=== PATIENT | female | born 1940 | race Caucasian/White ===

== ENCOUNTER → 2018-03-09 09:39 | Outpatient (CLI) | payer MEDICARE, BC, SELFPAY ==
[2018-03-09 10:55] LABS: Add Manual Diff / Slide Review NO; Basophils Percent Auto 0.6 % (0-2); Eosinophils Percent Auto 1.2 % (2-4); Hemoglobin 13.9 g/dL (12.0-16.0); Lymphocytes Percent Auto 11.9 % (25-40); Mean Corpuscular HGB Conc 33.9 % (30-36); Mean Corpuscular Hemoglobin 31.1 PG (26-34); Mean Corpuscular Volume 91.9 fL (80-100); Monocytes Percent Auto 9.8 % (3-14); Neutrophils Absolute Auto 8500 /uL (3000-5900); Neutrophils Percent Auto 76.5 % (50-75); Platelet Count 271 X10^3/uL (150-400); Red Blood Cell Count 4.46 X10^6/uL (4.0-5.2); Red Cell Distribution Width 14.1 % (11.6-14.8); White Blood Cell Count 11.1 X10^3/uL (4.5-11.0)
[2018-03-09 11:21] LABS: HEMOLYSIS < 15 (0-50)
[2018-03-09 11:29] LABS: Alanine Aminotransferase 29 IU/L (9-52); Albumin 3.7 g/dL (3.5-5.0); Albumin Globulin Ratio 1.2 (1.0-2.8); Alkaline Phosphatase 90 U/L (38-126); Aspartate Aminotransferase 32 IU/L (14-36); Bilirubin Total 1.1 mg/dL (0.2-1.3); Blood Urea Nitrogen 15 mg/dL (7-17); Carbon Dioxide 29 mmol/L (22-32); Chloride 98 mmol/L (98-107); Cholesterol 171 mg/dL (140-199); Estimated Glomerular Filt Rate > 60.0 mL/min (>60); Glucose 94 mg/dL (80-110); HDL Cholesterol 88 mg/dL (40-60); LDL Cholesterol Calculated 68 mg/dL (<100); Potassium 3.7 mmol/L (3.4-5.1); Sodium 137 mmol/L (137-145); Total Protein 6.7 g/dL (6.3-8.2); Triglycerides 74 mg/dL (35-150)
[2018-03-09 12:15] LABS: Vitamin B12 279 pg/mL (239-931)
[2018-03-09 15:47] LABS: Creatinine Urine Random 90.6 mg/dL
[2018-03-09 15:50] LABS: Microalbumi Creatinin Ratio Ur 16.5 ug/mg CR (<30); Microalbumin Urine Random 1.5 mg/dL (0-1.6)
== END ==
PROVIDERS: PCP Family Medicine; Visit Provider Family Medicine
DX: R19.7 Diarrhea, unspecified (principal); I10 Essential (primary) hypertension; R41.3 Other amnesia
CPT/HCPCS: 36415; 80053; 80061; 82043; 82570; 82607; 84443; 85025

== ENCOUNTER 2018-03-14 17:45 | Emergency (ER) | payer MEDICARE, SELFPAY ==
[2018-03-14 17:35] VITALS: BP 118/56; PULSE 86; RESP 17; TEMP 36.5; O2SAT 96
[2018-03-14 18:00] VITALS: BP 105/53; PULSE 73; RESP 15; O2SAT 94
--- NOTE | 2018-03-14 18:00 | DI.CT.S_ITS ---
PROCEDURE: CT HEAD/BRAIN WO CON INDICATIONS: found down TECHNIQUE: Noncontrast 4.5 mm thick angled axial sections acquired from the foramen magnum to the vertex, with coronal and sagittal reformats. For radiation dose reduction, the following was used: automated exposure control, adjustment of mA and/or kV according to patient size. COMPARISON: None. FINDINGS: Image quality: Excellent. CSF spaces: Basal cisterns are patent. No extra-axial fluid collections. The ventricles are symmetric in size and shape. Brain: No intracranial bleeds or masses. There is cerebral volume loss for age, with resultant ventricular and sulcal prominence. There are periventricular and deep white matter chronic small vessel ischemic changes. There is intracranial internal carotid artery atherosclerosis. Skull and face: Calvarium and visualized facial bones appear intact, without suspicious lesions. Sinuses: Visualized sinuses and mastoids are clear. IMPRESSION: No trauma found. Dictated by: Papa Doll M.D. on 03/14/2018 at 19:07 Approved by: Papa Doll M.D. on 03/14/2018 at 19:07
--- NOTE | 2018-03-14 18:00 | DI.CT.S_ITS ---
PROCEDURE: CT CERVICAL SPINE WO CON INDICATIONS: found down TECHNIQUE: Noncontrast 3 mm thick sections acquired from the skull base to the T4 level. Sagittal and coronal reformats were then constructed. For radiation dose reduction, the following was used: automated exposure control, adjustment of mA and/or kV according to patient size. COMPARISON: None. FINDINGS: Image quality: Excellent. Bones: No fractures or dislocations. Visualized superior ribs are intact. Soft tissues: Prevertebral soft tissues are normal in thickness. No paravertebral hematomas. No apical pneumothoraces. IMPRESSION: Moderately severe degenerative disc disease along the lower thirds of the cervical spine but no osseous trauma or traumatic subluxation is found. Dictated by: Papa Doll M.D. on 03/14/2018 at 19:06 Approved by: Papa Doll M.D. on 03/14/2018 at 19:07
[2018-03-14 18:10] LABS: Add Manual Diff / Slide Review NO; Eosinophils Percent Auto 6.1 % (2-4); Hematocrit 39.1 % (36-46); Hemoglobin 13.1 g/dL (12.0-16.0); Lymphocytes Percent Auto 30.7 % (25-40); Mean Corpuscular HGB Conc 33.5 % (30-36); Mean Corpuscular Hemoglobin 31.4 PG (26-34); Mean Corpuscular Volume 93.8 fL (80-100); Monocytes Percent Auto 11.2 % (3-14); Neutrophils Absolute Auto 5100 /uL (3000-5900); Platelet Count 207 X10^3/uL (150-400); Prothrombin Time 11.4 SECONDS (10.1-12.7); Red Blood Cell Count 4.17 X10^6/uL (4.0-5.2); Red Cell Distribution Width 14.4 % (11.6-14.8)
[2018-03-14 18:13] LABS: PTT Partial Thromboplastin Tim 29 SECONDS (26.4-36.2)
[2018-03-14 18:14] LABS: Alanine Aminotransferase 27 IU/L (9-52); Albumin 3.5 g/dL (3.5-5.0); Albumin Globulin Ratio 1.2 (1.0-2.8); Alkaline Phosphatase 69 U/L (38-126); Aspartate Aminotransferase 32 IU/L (14-36); Bilirubin Total 0.3 mg/dL (0.2-1.3); Blood Urea Nitrogen 13 mg/dL (7-17); Calcium 8.7 mg/dL (8.4-10.2); Carbon Dioxide 33 mmol/L (22-32); Chloride 104 mmol/L (98-107); Estimated Glomerular Filt Rate > 60.0 mL/min (>60); Ethanol (ETOH) 257 mg/dL; Glucose 102 mg/dL (80-110); HEMOLYSIS 27 (0-50); Sodium 144 mmol/L (137-145); Total Protein 6.5 g/dL (6.3-8.2)
[2018-03-14 18:33] LABS: Lactate (Lactic Acid) 1.1 mmol/L (0.7-2.1)
--- NOTE | 2018-03-14 18:36 | ED.AMS ---
HPI - Altered Mental Status General Chief Complaint: Altered Mental Status Stated Complaint: prolapsed bladder, ? UTI, found on ground FAST neg Time Seen by Provider: 03/14/18 17:47 Source: patient, family and EMS Mode of arrival: EMS Limitations: no limitations History of Present Illness HPI narrative: Patient presented to the emergency department by EMS after being found down on her bedroom floor. Per EMS, she ?smelled of UTI and was noted to have a possible ?prolapsed bladder. Her grandson found her on the bedroom floor. He states he lost saw her about an hour ago. EMS also stated she smelled of alcohol and found alcohol in her bed. Grandson states she has been drinking approximately at least a 5th a day of hard alcohol for the past week. Patient denies any alcohol use. She denies any headache, chest pain, shortness of breath, syncope and does not know the mechanism of her being found on the ground. Patient states she ?is ready to go home Related Data Home Medications Medication Instructions Recorded Confirmed acetaminophen [Tylenol Extra 1,000 mg PO BID #0 07/07/17 03/09/18 Strength] digoxin [Lanoxin] 0.25 mg PO QDAY #0 07/07/17 03/09/18 diltiazem HCl [Cardizem LA] 240 mg PO QDAY #0 07/20/17 03/09/18 docusate sodium [Colace] 100 mg PO QDAY #0 07/20/17 03/09/18 zolpidem [Ambien CR] 6.25 mg PO HS #0 07/20/17 03/09/18 rosuvastatin 20 mg tablet 20 mg PO DAILY 12/24/17 03/09/18 Previous Rx's Medication Instructions Recorded aspirin 81 mg PO BID #60 tab 07/21/17 hydrocodone-acetaminophen [[place]] 1 tab PO Q4HP PRN #60 tab 07/22/17 nitrofurantoin monohyd/m-cryst 100 mg PO BID #20 cap 03/14/18 [Macrobid] Allergies Allergy/AdvReac Type Severity Reaction Status Date / Time Sulfa (Sulfonamide Allergy Severe NAUSEA, Unverified 03/09/18 09:00 Antibiotics) VAGINAL [SULFA (SULFONAMIDE ITCHING ANTIBIOTICS)] oxycodone [OXYCODONE] Allergy Unknown Unverified 03/09/18 09:00 codeine [CODEINE] AdvReac Intermediate NAUSEA Unverified 03/09/18 09:00 Review of Systems Review of Systems GENERAL: See HPI HEENT: Denies sinus pain, ear pain, sore throat, difficulty swallowing, dizziness. RESPIRATORY: Denies dyspnea, cough, wheezing, hemoptysis, sputum. CARDIOVASCULAR: Denies chest pain, palpitations, orthopnea, edema, GASTROINTESTINAL: Denies nausea, vomiting, abdominal pain, diarrhea, constipation, melena. : Denies dysuria, frequency, incontinence, hematuria, urinary retention. MUSCULOSKELETAL: denies weakness, joint pain, or bony pain SKIN: Denies rash, skin lesions, or other NEUROLOGIC: See HPI PSYCHIATRIC: No concerning psychosocial issues. 12 point review of systems is negative except for those stated above Exam Narrative Exam Narrative: GENERAL: Elderly female no apparent distress. Strong urine odor. HEAD: Atraumatic. Normocephalic. No temporal or scalp tenderness. EYES: Pupils equal round and reactive. Extraocular motions intact. No scleral icterus. No injection or drainage. ENT: Nose without bleeding, purulent drainage or septal hematoma. Throat without erythema, tonsillar hypertrophy or exudate. Uvula midline. Airway patent. NECK: Trachea midline. No JVD or lymphadenopathy. Supple, nontender, no meningeal signs. No pain to C-spine palpation. CARDIOVASCULAR: Regular rate and rhythm without murmurs, gallops, or rubs. RESPIRATORY: Clear to auscultation. Breath sounds equal bilaterally. No wheezes, rales, or rhonchi. GASTROINTESTINAL: Abdomen soft, non-tender, nondistended. No hepato-splenomegaly, or palpable masses. No guarding. Active bowel sounds all quadrants. No pulsatile mass. EXTREMITIES: No clubbing, cyanosis, or edema. No joint tenderness, effusion, or edema noted. BACK: Nontender without deformity or crepitance. No flank tenderness. No CVA tenderness bilaterally. No pain to spinal palpation. NEURO: A alert. Oriented x1. States it is 1968 initially. Using all extremities equally. Steady on feet. SKIN: No rash or erythema. Initial Vital Signs Initial Vital Signs: Vital Signs Temperature 97.7 F 03/14/18 17:35 Pulse Rate 86 03/14/18 17:35 Respiratory Rate 17 03/14/18 17:35 Blood Pressure 118/56 L 09/09/18 17:35 Pulse Oximetry 96 03/14/18 17:35 Scores Nexus Score for C-Spine Focal Neurologic deficit present: No Midline spinal tenderness present: No Altered level of conciousness present: Yes Intoxication present: Yes Distracting Injury Present: No Nexus Criteria for C-spine: 2 Course Course Narrative: A checked on the patient several times throughout her stay in the emergency department. Orders Ordered: ED Orders 03/14/18 17:30 Complete Blood Count AUTO DIFF Stat Comprehensive Metabolic Panel Stat Ethanol (ETOH) Stat Partial Thromboplastin Time Stat Prothrombin Time INR Stat 03/14/18 18:00 CT cervical spine wo con Stat CT head/brain wo con Stat 03/14/18 18:15 Lactate (Lactic Acid) Stat 03/14/18 18:16 EKG-12 Lead Stat 03/14/18 18:51 Urinalysis and Microscopic Stat Urine Culture Stat Urine Drug Screen, Rapid Stat Discontinued Medications Sodium Chloride (Normal Saline 0.9%) 1,000 mls @ 150 mls/hr IV CONT VIVIANA Last Infusion: 03/14/18 19:08 Dose: 1,000 mls/hr Admin: 03/14/18 18:42 Dose: 150 mls/hr Nitrofurantoin Macrocrystals (Macrobid 100 Mg Capsule) 100 mg PO NOW ONE Stop: 03/14/18 19:54 Last Admin: 03/14/18 20:01 Dose: 100 mg Vital Signs - 8 hr 03/14/18 17:35 03/14/18 18:00 Temperature 97.7 F Pulse Rate 86 73 Respiratory Rate 17 15 Blood Pressure 118/56 L Blood Pressure [Left Arm] 105/53 L Pulse Oximetry 96 94 MDM - Altered Mental Status Lab Data Attestation: I reviewed the patient's lab results. Patient was noted to have an elevated alcohol. I discussed that with the patient, who repeatedly stated she was not drinking alcohol today. She states she drank last night. I discussed at length that I would like her to stop drinking as much alcohol, but she declined that she has a problem with alcohol. I repeatedly discussed her high alcohol level with her, and she repeats that I would like her to stop drinking alcohol. I discussed that I believe it is a problem, that it could increase her chance of , but she states that her drinking is not a problem. Patient is ambulating steadily around the emergency department. I also discussed with her grandson that I would like him to stop buying her alcohol. Result diagrams: 03/14/18 17:30 03/14/18 17:30 Lab Results 03/14/18 03/14/18 03/14/18 Range/Units 17:30 17:30 17:30 WBC 10.0 (4.5-11.0) X10^3/uL RBC 4.17 (4.0-5.2) X10^6/uL Hgb 13.1 (12.0-16.0) g/dL Hct 39.1 (36-46) % MCV 93.8 (80-100) fL MCH 31.4 (26-34) PG MCHC 33.5 (30-36) % RDW 14.4 (11.6-14.8) % Plt Count 207 (150-400) X10^3/uL Neut % (Auto) 51.0 (50-75) % Lymph % (Auto) 30.7 (25-40) % Emm[place] % (Auto) 11.2 (3-14) % Eos % (Auto) 6.1 H (2-4) % Baso % (Auto) 1.0 (0-2) % Neut # (Auto) 5100 (7080-6428) /uL PT 11.4 (10.1-12.7) SECONDS INR 1.0 (0.9-1.3) APTT 29 (26.4-36.2) SECONDS Sodium 144 (137-145) mmol/L Potassium 4.0 (3.4-5.1) mmol/L Chloride 104 (98-107) mmol/L Carbon Dioxide 33 H (22-32) mmol/L BUN 13 (7-17) mg/dL Creatinine 0.50 L (0.52-1.04) mg/dL Estimated GFR > 60.0 (>60) mL/min BUN/Creatinine Ratio 26.0 H (6-22) Glucose 102 (80-110) mg/dL Lactate (0.7-2.1) mmol/L Calcium 8.7 (8.4-10.2) mg/dL Total Bilirubin 0.3 (0.2-1.3) mg/dL AST 32 (14-36) IU/L ALT 27 (9-52) IU/L Alkaline Phosphatase 69 (38-126) U/L Total Protein 6.5 (6.3-8.2) g/dL Albumin 3.5 (3.5-5.0) g/dL Globulin 3.0 (1.7-4.1) g/dL Albumin/Globulin Ratio 1.2 (1.0-2.8) Urine Color Urine Appearance Urine pH (4.5-8.0) Ur Specific [place] (1.000-1.035) Urine Protein (Negative) Urine Glucose (UA) (Normal) g/dL Urine Ketones (NEGATIVE) Urine Occult Blood (Negative) Urine Nitrate (Negative) Urine Bilirubin (NEGATIVE) Urine Urobilinogen (0.2) E.U./dL Ur Leukocyte Esterase (NEGATIVE) Urine RBC (0-5/HPF) Urine WBC (0-5/HPF) Urine Bacteria (None) Ur Culture Indicated? Micro UA Comment Urine Opiates Screen (Negative) Ur Oxycodone Screen (Negative) Urine Methadone Screen (Negative) Ur Barbiturates Screen (Negative) U Tricyclic Antidepress (Negative) Ur Phencyclidine Scrn (Negative) Ur Amphetamines Screen (Negative) U Methamphetamines Scrn (Negative) Ur MDMA Scrn (Ecstasy) (Negative) U Benzodiazepines Scrn (Negative) Urine Cocaine Screen (Negative) U Marijuana (THC) Screen (Negative) Ethyl Alcohol 257 mg/dL 03/14/18 03/14/18 03/14/18 Range/Units 18:15 18:51 18:51 WBC (4.5-11.0) X10^3/uL RBC (4.0-5.2) X10^6/uL Hgb (12.0-16.0) g/dL Hct (36-46) % MCV (80-100) fL MCH (26-34) PG MCHC (30-36) % RDW (11.6-14.8) % Plt Count (150-400) X10^3/uL Neut % (Auto) (50-75) % Lymph % (Auto) (25-40) % Emmons % (Auto) (3-14) % Eos % (Auto) (2-4) % Baso % (Auto) (0-2) % Neut # (Auto) (5463-9996) /uL PT (10.1-12.7) SECONDS INR (0.9-1.3) APTT (26.4-36.2) SECONDS Sodium (137-145) mmol/L Potassium (3.4-5.1) mmol/L Chloride (98-107) mmol/L Carbon Dioxide (22-32) mmol/L BUN (7-17) mg/dL Creatinine (0.52-1.04) mg/dL Estimated GFR (>60) mL/min BUN/Creatinine Ratio (6-22) Glucose (80-110) mg/dL Lactate 1.1 (0.7-2.1) mmol/L Calcium (8.4-10.2) mg/dL Total Bilirubin (0.2-1.3) mg/dL AST (14-36) IU/L ALT (9-52) IU/L Alkaline Phosphatase (38-126) U/L Total Protein (6.3-8.2) g/dL Albumin (3.5-5.0) g/dL Globulin (1.7-4.1) g/dL Albumin/Globulin Ratio (1.0-2.8) Urine Color Yellow Urine Appearance Sl cloudy Urine pH 7.0 (4.5-8.0) Ur Specific [place] <=1.005 (1.000-1.035) Urine Protein Negative (Negative) Urine Glucose (UA) Negative (Normal) g/dL Urine Ketones Negative (NEGATIVE) Urine Occult Blood Trace-lysed (Negative) Urine Nitrate Positive H (Negative) Urine Bilirubin Negative (NEGATIVE) Urine Urobilinogen 0.2 (0.2) E.U./dL Ur Leukocyte Esterase 3+ H (NEGATIVE) Urine RBC 1-5/hpf (0-5/HPF) Urine WBC 30-100/hpf H (0-5/HPF) Urine Bacteria Many (>30) H (None) Ur Culture Indicated? Specimen cultured Micro UA Comment Not Reportable Urine Opiates Screen Negative (Negative) Ur Oxycodone Screen Negative (Negative) Urine Methadone Screen Negative (Negative) Ur Barbiturates Screen Negative (Negative) U Tricyclic Antidepress Negative (Negative) Ur Phencyclidine Scrn Negative (Negative) Ur Amphetamines Screen Negative (Negative) U Methamphetamines Scrn Negative (Negative) Ur MDMA Scrn (Ecstasy) Negative (Negative) U Benzodiazepines Scrn Negative (Negative) Urine Cocaine Screen Negative (Negative) U Marijuana (THC) Screen Negative (Negative) Ethyl Alcohol mg/dL Point of Care Testing Glucose POC [address] Spine CT: Radiologist's impression: [address] [address] [address] Scan Report Signed Patient: May Hendrickson MR#: [id number] : 1940 Acct:[id number] Age/Sex: 77 / F Date of Service: 03/14/18 Loc: ED Accession Number: [id number] Procedure: CT cervical spine wo con Ordering Provider: Mari Srinivasan-VIDAL PROCEDURE: CT CERVICAL SPINE WO CON INDICATIONS: found down TECHNIQUE: Noncontrast 3 mm thick sections acquired from the skull base to the T4 level. Sagittal and coronal reformats were then constructed. For radiation dose reduction, the following was used: automated exposure control, adjustment of mA and/or kV according to patient size. COMPARISON: None. FINDINGS: Image quality: Excellent. Bones: No fractures or dislocations. Visualized superior ribs are intact. Soft tissues: Prevertebral soft tissues are normal in thickness. No paravertebral hematomas. No apical pneumothoraces. IMPRESSION: Moderately severe degenerative disc disease along the lower thirds of the cervical spine but no osseous trauma or traumatic subluxation is found. Dictated by: Papa Doll M.D. on 03/14/2018 at 19:06 Approved by: Papa Doll M.D. on 03/14/2018 at 19:07 CT scan - head: Radiologist's impression: [address] [address] [address] Scan Report Signed Patient: May Hendrickson MR#: [id number] : 1940 Acct:[id number] Age/Sex: 77 / F Date of Service: 03/14/18 Loc: ED Accession Number: [id number] Procedure: CT head/brain wo con Ordering Provider: Mari Srinivasan PROCEDURE: CT HEAD/BRAIN WO CON INDICATIONS: found down TECHNIQUE: Noncontrast 4.5 mm thick angled axial sections acquired from the foramen magnum to the vertex, with coronal and sagittal reformats. For radiation dose reduction, the following was used: automated exposure control, adjustment of mA and/or kV according to patient size. COMPARISON: None. FINDINGS: Image quality: Excellent. CSF spaces: Basal cisterns are patent. No extra-axial fluid collections. The ventricles are symmetric in size and shape. Brain: No intracranial bleeds or masses. There is cerebral volume loss for age, with resultant ventricular and sulcal prominence. There are periventricular and deep white matter chronic small vessel ischemic changes. There is intracranial internal carotid artery atherosclerosis. Skull and face: Calvarium and visualized facial bones appear intact, without suspicious lesions. Sinuses: Visualized sinuses and mastoids are clear. IMPRESSION: No trauma found. Dictated by: Papa Doll M.D. on 03/14/2018 at 19:07 Approved by: Papa Doll M.D. on 03/14/2018 at 19:07 ECG Data Attestation: I personally reviewed and interpreted this ECG as follows: Prior ECG tracings: available for review Interpretation: Sinus rhythm. No ectopy noted. No ST-T elevation or depression noted. QRS 83. Consistent with previous EKG frm 2010 which had QRS 82 MDM Narrative Medical decision making narrative: Patient presented by EMS. She was found down in her bedroom. She was noted to have an elevated alcohol level as well as a urinary tract infection. I discussed at length with her her alcohol level, offered her assistance, offered resources for drinking. However the patient declined all resources and help offered. She denied a drinking problem repeatedly to myself and nursing staff. She was cognizant enough to understand discharge instructions, discussed her alcohol level, ambulate in the hallway. She had no questions or concerns regarding her urinary tract diagnosis. I suggested prompt follow-up with primary care. I discussed signs and symptoms of worsening UTI including flank pain fever vomiting or diarrhea. I discussed be evaluated as soon as possible if any of those occur. Otherwise her labs came back within grossly normal limits. She had a negative head CT as well as a negative C-spine CT. I discussed follow-up with primary care as well as come back to the emergency department if needed. Discharge Plan Departure Patient Disposition: Home Clinical Impression: Alcoholic intoxication, Urinary tract infection Discharge Date/Time: 03/14/18 20:30 Interventions: ED Discharge Assessment Last Done: 03/14/18 20:28 Instructions: DI for Urinary Tract Infection (UTI), DI for Alcohol Abuse, DI for Alcohol Poisoning Activity Restrictions/Additional Instructions: I am starting you on an antibiotic for urinary tract infection. Please take this antibiotic twice a day for 10 days. Follow up with primary care provider. Monitor for fever, flank pain, vomiting or diarrhea as these are signs your infection could be getting worse. Your alcohol today was almost four times the legal limit. I would like you to stop drinking as much alcohol. We are able to offer you help for drinking alcohol. Please come back or go to her primary care provider if you would like to take advantage of the help we can give you. Prescriptions: New nitrofurantoin monohyd/m-cryst [Macrobid] 100 mg capsule 100 mg PO BID Qty: 20 RF: 0 No Action acetaminophen [Tylenol Extra Strength] 500 MG tablet 1,000 mg PO BID Qty: 0 RF: 0 digoxin [Lanoxin] 250 MCG tablet 0.25 mg PO QDAY Qty: 0 RF: 0 diltiazem HCl [Cardizem LA] 240 MG tablet extended release 24 hr 240 mg PO QDAY Qty: 0 RF: 0 docusate sodium [Colace] 100 MG capsule 100 mg PO QDAY Qty: 0 RF: 0 zolpidem [Ambien CR] 6.25 MG tablet,ext release multiphase 6.25 mg PO HS Qty: 0 RF: 0 aspirin 81 MG tablet,delayed release (DR/EC) 81 mg PO BID Qty: 60 RF: 0 hydrocodone-acetaminophen [[place]] 5 MG/325 MG tablet 1 tab PO Q4HP PRNQty: 60 RF: 0 rosuvastatin 20 mg tablet 20 mg PO DAILY RF: 0 Referrals: Fartun Prabhakar MD [Primary Care Provider] -
[2018-03-14] MEDS: SODIUM CHLORIDE 0.9% 1,000 ML 150 ML IV (18:42)
[2018-03-14 19:00] LABS: Appearance Urine UA SL CLOUDY; Bilirubin Urine UA NEGATIVE (NEGATIVE); Color Urine UA YELLOW; Glucose Urine UA NEGATIVE (Normal); Ketones Urine UA NEGATIVE (NEGATIVE); Leukocyte Esterase Urine UA 3+ (NEGATIVE); Nitrite Urine UA POSITIVE (Negative); Occult Blood Urine UA TRACE-LYSED (Negative); Protein Urine UA NEGATIVE (Negative); Specific Gravity Urine UA <=1.005 (1.000-1.035); Urobilinogen Urine UA 0.2 E.U./dL (0.2)
--- NOTE | 2018-03-14 19:13 | ED_ITS ---
HPI - Altered Mental Status General Chief Complaint: Altered Mental Status Stated Complaint: prolapsed bladder, ? UTI, found on ground FAST neg Time Seen by Provider: 03/14/18 17:47 Source: patient, family and EMS Mode of arrival: EMS Limitations: no limitations History of Present Illness HPI narrative: Patient presented to the emergency department by EMS after being found down on her bedroom floor. Per EMS, she ?smelled of UTI and was noted to have a possible ?prolapsed bladder. Her grandson found her on the bedroom floor. He states he lost saw her about an hour ago. EMS also stated she smelled of alcohol and found alcohol in her bed. Grandson states she has been drinking approximately at least a 5th a day of hard alcohol for the past week. Patient denies any alcohol use. She denies any headache, chest pain, shortness of breath, syncope and does not know the mechanism of her being found on the ground. Patient states she ?is ready to go home Related Data Home Medications Medication Instructions Recorded Confirmed acetaminophen [Tylenol Extra 1,000 mg PO BID #0 07/07/17 03/09/18 Strength] digoxin [Lanoxin] 0.25 mg PO QDAY #0 07/07/17 03/09/18 diltiazem HCl [Cardizem LA] 240 mg PO QDAY #0 07/20/17 03/09/18 docusate sodium [Colace] 100 mg PO QDAY #0 07/20/17 03/09/18 zolpidem [Ambien CR] 6.25 mg PO HS #0 07/20/17 03/09/18 rosuvastatin 20 mg tablet 20 mg PO DAILY 12/24/17 03/09/18 Previous Rx's Medication Instructions Recorded aspirin 81 mg PO BID #60 tab 07/21/17 hydrocodone-acetaminophen [Hilliards] 1 tab PO Q4HP PRN #60 tab 07/22/17 nitrofurantoin monohyd/m-cryst 100 mg PO BID #20 cap 03/14/18 [Macrobid] Allergies Allergy/AdvReac Type Severity Reaction Status Date / Time Sulfa (Sulfonamide Allergy Severe NAUSEA, Unverified 03/09/18 09:00 Antibiotics) VAGINAL [SULFA (SULFONAMIDE ITCHING ANTIBIOTICS)] oxycodone [OXYCODONE] Allergy Unknown Unverified 03/09/18 09:00 codeine [CODEINE] AdvReac Intermediate NAUSEA Unverified 03/09/18 09:00 Review of Systems Review of Systems GENERAL: See HPI HEENT: Denies sinus pain, ear pain, sore throat, difficulty swallowing, dizziness. RESPIRATORY: Denies dyspnea, cough, wheezing, hemoptysis, sputum. CARDIOVASCULAR: Denies chest pain, palpitations, orthopnea, edema, GASTROINTESTINAL: Denies nausea, vomiting, abdominal pain, diarrhea, constipation, melena. : Denies dysuria, frequency, incontinence, hematuria, urinary retention. MUSCULOSKELETAL: denies weakness, joint pain, or bony pain SKIN: Denies rash, skin lesions, or other NEUROLOGIC: See HPI PSYCHIATRIC: No concerning psychosocial issues. 12 point review of systems is negative except for those stated above Exam Narrative Exam Narrative: GENERAL: Elderly female no apparent distress. Strong urine odor. HEAD: Atraumatic. Normocephalic. No temporal or scalp tenderness. EYES: Pupils equal round and reactive. Extraocular motions intact. No scleral icterus. No injection or drainage. ENT: Nose without bleeding, purulent drainage or septal hematoma. Throat without erythema, tonsillar hypertrophy or exudate. Uvula midline. Airway patent. NECK: Trachea midline. No JVD or lymphadenopathy. Supple, nontender, no meningeal signs. No pain to C-spine palpation. CARDIOVASCULAR: Regular rate and rhythm without murmurs, gallops, or rubs. RESPIRATORY: Clear to auscultation. Breath sounds equal bilaterally. No wheezes , rales, or rhonchi. GASTROINTESTINAL: Abdomen soft, non-tender, nondistended. No hepato-splenomegaly , or palpable masses. No guarding. Active bowel sounds all quadrants. No pulsatile mass. EXTREMITIES: No clubbing, cyanosis, or edema. No joint tenderness, effusion, or edema noted. BACK: Nontender without deformity or crepitance. No flank tenderness. No CVA tenderness bilaterally. No pain to spinal palpation. NEURO: A alert. Oriented x1. States it is 1968 initially. Using all extremities equally. Steady on feet. SKIN: No rash or erythema. Initial Vital Signs Initial Vital Signs: Vital Signs Temperature 97.7 F 03/14/18 17:35 Pulse Rate 86 03/14/18 17:35 Respiratory Rate 17 03/14/18 17:35 Blood Pressure 118/56 L 09/09/18 17:35 Pulse Oximetry 96 03/14/18 17:35 Scores Nexus Score for C-Spine Focal Neurologic deficit present: No Midline spinal tenderness present: No Altered level of conciousness present: Yes Intoxication present: Yes Distracting Injury Present: No Nexus Criteria for C-spine: 2 Course Course Narrative: A checked on the patient several times throughout her stay in the emergency department. Orders Ordered: ED Orders 03/14/18 17:30 Complete Blood Count AUTO DIFF Stat Comprehensive Metabolic Panel Stat Ethanol (ETOH) Stat Partial Thromboplastin Time Stat Prothrombin Time INR Stat 03/14/18 18:00 CT cervical spine wo con Stat CT head/brain wo con Stat 03/14/18 18:15 Lactate (Lactic Acid) Stat 03/14/18 18:16 EKG-12 Lead Stat 03/14/18 18:51 Urinalysis and Microscopic Stat Urine Culture Stat Urine Drug Screen, Rapid Stat Discontinued Medications Sodium Chloride (Normal Saline 0.9%) 1,000 mls @ 150 mls/hr IV CONT VIVIANA Last Infusion: 03/14/18 19:08 Dose: 1,000 mls/hr Admin: 03/14/18 18:42 Dose: 150 mls/hr Nitrofurantoin Macrocrystals (Macrobid 100 Mg Capsule) 100 mg PO NOW ONE Stop: 03/14/18 19:54 Last Admin: 03/14/18 20:01 Dose: 100 mg Vital Signs - 8 hr 03/14/18 17:35 03/14/18 18:00 Temperature 97.7 F Pulse Rate 86 73 Respiratory Rate 17 15 Blood Pressure 118/56 L Blood Pressure [Left Arm] 105/53 L Pulse Oximetry 96 94 MDM - Altered Mental Status Lab Data Attestation: I reviewed the patient's lab results. Patient was noted to have an elevated alcohol. I discussed that with the patient, who repeatedly stated she was not drinking alcohol today. She states she drank last night. I discussed at length that I would like her to stop drinking as much alcohol, but she declined that she has a problem with alcohol. I repeatedly discussed her high alcohol level with her, and she repeats that I would like her to stop drinking alcohol. I discussed that I believe it is a problem, that it could increase her chance of , but she states that her drinking is not a problem. Patient is ambulating steadily around the emergency department. I also discussed with her grandson that I would like him to stop buying her alcohol. Result diagrams: 03/14/18 17:30 03/14/18 17:30 Lab Results 03/14/18 03/14/18 03/14/18 Range/Units 17:30 17:30 17:30 WBC 10.0 (4.5-11.0) X10^3/uL RBC 4.17 (4.0-5.2) X10^6/uL Hgb 13.1 (12.0-16.0) g/dL Hct 39.1 (36-46) % MCV 93.8 (80-100) fL MCH 31.4 (26-34) PG MCHC 33.5 (30-36) % RDW 14.4 (11.6-14.8) % Plt Count 207 (150-400) X10^3/uL Neut % (Auto) 51.0 (50-75) % Lymph % (Auto) 30.7 (25-40) % O'Brien % (Auto) 11.2 (3-14) % Eos % (Auto) 6.1 H (2-4) % Baso % (Auto) 1.0 (0-2) % Neut # (Auto) 5100 (9485-7864) /uL PT 11.4 (10.1-12.7) SECONDS INR 1.0 (0.9-1.3) APTT 29 (26.4-36.2) SECONDS Sodium 144 (137-145) mmol/L Potassium 4.0 (3.4-5.1) mmol/L Chloride 104 (98-107) mmol/L Carbon Dioxide 33 H (22-32) mmol/L BUN 13 (7-17) mg/dL Creatinine 0.50 L (0.52-1.04) mg/dL Estimated GFR > 60.0 (>60) mL/min BUN/Creatinine Ratio 26.0 H (6-22) Glucose 102 (80-110) mg/dL Lactate (0.7-2.1) mmol/L Calcium 8.7 (8.4-10.2) mg/dL Total Bilirubin 0.3 (0.2-1.3) mg/dL AST 32 (14-36) IU/L ALT 27 (9-52) IU/L Alkaline Phosphatase 69 (38-126) U/L Total Protein 6.5 (6.3-8.2) g/dL Albumin 3.5 (3.5-5.0) g/dL Globulin 3.0 (1.7-4.1) g/dL Albumin/Globulin Ratio 1.2 (1.0-2.8) Urine Color Urine Appearance Urine pH (4.5-8.0) Ur Specific Ray (1.000-1.035) Urine Protein (Negative) Urine Glucose (UA) (Normal) g/dL Urine Ketones (NEGATIVE) Urine Occult Blood (Negative) Urine Nitrate (Negative) Urine Bilirubin (NEGATIVE) Urine Urobilinogen (0.2) E.U./dL Ur Leukocyte Esterase (NEGATIVE) Urine RBC (0-5/HPF) Urine WBC (0-5/HPF) Urine Bacteria (None) Ur Culture Indicated? Micro UA Comment Urine Opiates Screen (Negative) Ur Oxycodone Screen (Negative) Urine Methadone Screen (Negative) Ur Barbiturates Screen (Negative) U Tricyclic Antidepress (Negative) Ur Phencyclidine Scrn (Negative) Ur Amphetamines Screen (Negative) U Methamphetamines Scrn (Negative) Ur MDMA Scrn (Ecstasy) (Negative) U Benzodiazepines Scrn (Negative) Urine Cocaine Screen (Negative) U Marijuana (THC) Screen (Negative) Ethyl Alcohol 257 mg/dL 03/14/18 03/14/18 03/14/18 Range/Units 18:15 18:51 18:51 WBC (4.5-11.0) X10^3/uL RBC (4.0-5.2) X10^6/uL Hgb (12.0-16.0) g/dL Hct (36-46) % MCV (80-100) fL MCH (26-34) PG MCHC (30-36) % RDW (11.6-14.8) % Plt Count (150-400) X10^3/uL Neut % (Auto) (50-75) % Lymph % (Auto) (25-40) % O'Brien % (Auto) (3-14) % Eos % (Auto) (2-4) % Baso % (Auto) (0-2) % Neut # (Auto) (7083-2450) /uL PT (10.1-12.7) SECONDS INR (0.9-1.3) APTT (26.4-36.2) SECONDS Sodium (137-145) mmol/L Potassium (3.4-5.1) mmol/L Chloride (98-107) mmol/L Carbon Dioxide (22-32) mmol/L BUN (7-17) mg/dL Creatinine (0.52-1.04) mg/dL Estimated GFR (>60) mL/min BUN/Creatinine Ratio (6-22) Glucose (80-110) mg/dL Lactate 1.1 (0.7-2.1) mmol/L Calcium (8.4-10.2) mg/dL Total Bilirubin (0.2-1.3) mg/dL AST (14-36) IU/L ALT (9-52) IU/L Alkaline Phosphatase (38-126) U/L Total Protein (6.3-8.2) g/dL Albumin (3.5-5.0) g/dL Globulin (1.7-4.1) g/dL Albumin/Globulin Ratio (1.0-2.8) Urine Color Yellow Urine Appearance Sl cloudy Urine pH 7.0 (4.5-8.0) Ur Specific Ray <=1.005 (1.000-1.035) Urine Protein Negative (Negative) Urine Glucose (UA) Negative (Normal) g/dL Urine Ketones Negative (NEGATIVE) Urine Occult Blood Trace-lysed (Negative) Urine Nitrate Positive H (Negative) Urine Bilirubin Negative (NEGATIVE) Urine Urobilinogen 0.2 (0.2) E.U./dL Ur Leukocyte Esterase 3+ H (NEGATIVE) Urine RBC 1-5/hpf (0-5/HPF) Urine WBC 30-100/hpf H (0-5/HPF) Urine Bacteria Many (>30) H (None) Ur Culture Indicated? Specimen cultured Micro UA Comment Not Reportable Urine Opiates Screen Negative (Negative) Ur Oxycodone Screen Negative (Negative) Urine Methadone Screen Negative (Negative) Ur Barbiturates Screen Negative (Negative) U Tricyclic Antidepress Negative (Negative) Ur Phencyclidine Scrn Negative (Negative) Ur Amphetamines Screen Negative (Negative) U Methamphetamines Scrn Negative (Negative) Ur MDMA Scrn (Ecstasy) Negative (Negative) U Benzodiazepines Scrn Negative (Negative) Urine Cocaine Screen Negative (Negative) U Marijuana (THC) Screen Negative (Negative) Ethyl Alcohol mg/dL Point of Care Testing Glucose POC [address] Spine CT: Radiologist's impression: [address] [address] [address] Scan Report Signed Patient: May Hendrickson MR#: [id number] : 1940 Acct:[id number] Age/Sex: 77 / F Date of Service: 03/14/18 Loc: ED Accession Number: [id number] Procedure: CT cervical spine wo con Ordering Provider: Mari Srinivasan-VIDAL PROCEDURE: CT CERVICAL SPINE WO CON INDICATIONS: found down TECHNIQUE: Noncontrast 3 mm thick sections acquired from the skull base to the T4 level. Sagittal and coronal reformats were then constructed. For radiation dose reduction, the following was used: automated exposure control, adjustment of mA and/or kV according to patient size. COMPARISON: None. FINDINGS: Image quality: Excellent. Bones: No fractures or dislocations. Visualized superior ribs are intact. Soft tissues: Prevertebral soft tissues are normal in thickness. No paravertebral hematomas. No apical pneumothoraces. IMPRESSION: Moderately severe degenerative disc disease along the lower thirds of the cervical spine but no osseous trauma or traumatic subluxation is found. Dictated by: Papa Doll M.D. on 03/14/2018 at 19:06 Approved by: Papa Doll M.D. on 03/14/2018 at 19:07 CT scan - head: Radiologist's impression: [address] [address] [address] Scan Report Signed Patient: May Hendrickson MR#: [id number] : 1940 Acct:[id number] Age/Sex: 77 / F Date of Service: 03/14/18 Loc: ED Accession Number: [id number] Procedure: CT head/brain wo con Ordering Provider: Mari Srinivasan PROCEDURE: CT HEAD/BRAIN WO CON INDICATIONS: found down TECHNIQUE: Noncontrast 4.5 mm thick angled axial sections acquired from the foramen magnum to the vertex, with coronal and sagittal reformats. For radiation dose reduction, the following was used: automated exposure control, adjustment of mA and/or kV according to patient size. COMPARISON: None. FINDINGS: Image quality: Excellent. CSF spaces: Basal cisterns are patent. No extra-axial fluid collections. The ventricles are symmetric in size and shape. Brain: No intracranial bleeds or masses. There is cerebral volume loss for age , with resultant ventricular and sulcal prominence. There are periventricular and deep white matter chronic small vessel ischemic changes. There is intracranial internal carotid artery atherosclerosis. Skull and face: Calvarium and visualized facial bones appear intact, without suspicious lesions. Sinuses: Visualized sinuses and mastoids are clear. IMPRESSION: No trauma found. Dictated by: Papa Doll M.D. on 03/14/2018 at 19:07 Approved by: Papa Doll M.D. on 03/14/2018 at 19:07 ECG Data Attestation: I personally reviewed and interpreted this ECG as follows: Prior ECG tracings: available for review Interpretation: Sinus rhythm. No ectopy noted. No ST-T elevation or depression noted. QRS 83. Consistent with previous EKG frm 2010 which had QRS 82 MDM Narrative Medical decision making narrative: Patient presented by EMS. She was found down in her bedroom. She was noted to have an elevated alcohol level as well as a urinary tract infection. I discussed at length with her her alcohol level , offered her assistance, offered resources for drinking. However the patient declined all resources and help offered. She denied a drinking problem repeatedly to myself and nursing staff. She was cognizant enough to understand discharge instructions, discussed her alcohol level, ambulate in the hallway. She had no questions or concerns regarding her urinary tract diagnosis. I suggested prompt follow-up with primary care. I discussed signs and symptoms of worsening UTI including flank pain fever vomiting or diarrhea. I discussed be evaluated as soon as possible if any of those occur. Otherwise her labs came back within grossly normal limits. She had a negative head CT as well as a negative C-spine CT. I discussed follow-up with primary care as well as come back to the emergency department if needed. Discharge Plan Departure Patient Disposition: Home Clinical Impression: Alcoholic intoxication, Urinary tract infection Discharge Date/Time: 03/14/18 20:30 Interventions: ED Discharge Assessment Last Done: 03/14/18 20:28 Instructions: DI for Urinary Tract Infection (UTI), DI for Alcohol Abuse, DI for Alcohol Poisoning Activity Restrictions/Additional Instructions: I am starting you on an antibiotic for urinary tract infection. Please take this antibiotic twice a day for 10 days. Follow up with primary care provider. Monitor for fever, flank pain, vomiting or diarrhea as these are signs your infection could be getting worse. Your alcohol today was almost four times the legal limit. I would like you to stop drinking as much alcohol. We are able to offer you help for drinking alcohol. Please come back or go to her primary care provider if you would like to take advantage of the help we can give you. Prescriptions: New nitrofurantoin monohyd/m-cryst [Macrobid] 100 mg capsule 100 mg PO BID Qty: 20 RF: 0 No Action acetaminophen [Tylenol Extra Strength] 500 MG tablet 1,000 mg PO BID Qty: 0 RF: 0 digoxin [Lanoxin] 250 MCG tablet 0.25 mg PO QDAY Qty: 0 RF: 0 diltiazem HCl [Cardizem LA] 240 MG tablet extended release 24 hr 240 mg PO QDAY Qty: 0 RF: 0 docusate sodium [Colace] 100 MG capsule 100 mg PO QDAY Qty: 0 RF: 0 zolpidem [Ambien CR] 6.25 MG tablet,ext release multiphase 6.25 mg PO HS Qty: 0 RF: 0 aspirin 81 MG tablet,delayed release (DR/EC) 81 mg PO BID Qty: 60 RF: 0 hydrocodone-acetaminophen [Hilliards] 5 MG/325 MG tablet 1 tab PO Q4HP PRNQty: 60 RF: 0 rosuvastatin 20 mg tablet 20 mg PO DAILY RF: 0 Referrals: Fartun Prabhakar MD [Primary Care Provider] -
[2018-03-14 19:14] LABS: Urine Amphetamines Negative (Negative); Urine Barbiturates Negative (Negative); Urine Benzodiazepines Negative (Negative); Urine Cocaine Negative (Negative); Urine MDMA Negative (Negative); Urine Methadone Negative (Negative); Urine Methamphetamines Negative (Negative); Urine Morphine/Opi cutoff 2000 Negative (Negative); Urine Oxycodone Negative (Negative); Urine Phencyclidine Negative (Negative); Urine Tetrahydrocannabinol Negative (Negative); Urine Tricyclic Antidepressant Negative (Negative)
[2018-03-14 19:15] LABS: Bacteria Urine Many (>30); Culture Indicated Urine Specimen Cultured; RBC Urine 1-5/HPF (0-5/HPF); WBC Urine 30-100/HPF (0-5/HPF)
--- NOTE | 2018-03-14 19:30 | PC.NURSE ---
Patient is very restless and does not stay in bed. Requires frequent checks and redirecting. Concerned for her son that just left the facility to check on their dogs. Pt made aware of this and that he plans on returning shortly. Assisted pt back to bed and repositioned. Encouraged pt to stay in bed and relax while waiting for her test results and her son to come back to facility.
--- NOTE | 2018-03-14 19:51 | PC.NURSE ---
Pt assited to phone her son, Federico. Pt spoke to him on the phone in her room.
[2018-03-14] MEDS: NITROFURANTOIN ER 100 MG CAPSULE PO (20:01)
--- NOTE | 2018-03-14 20:07 | PC.NURSE ---
194: Provider cleared C-spine, cervical colar removed at this time.
--- NOTE | 2018-03-14 20:08 | PC.NURSE ---
Patient denies any alcohol use tonight. States she does not drink every day. When she does it is a shot or two of run in her coke at home. She denies having a drinking problem and states she used to drink wine but will only drink and occasional rum.
== END 2018-03-14 20:30 | disposition home or self-care (01) ==
PROVIDERS: Emergency Provider Nurse Practitioner Family; PCP Family Medicine
DX: N39.0 Urinary tract infection, site not specified (principal); F10.929 Alcohol use, unspecified with intoxication, unspecified
CPT/HCPCS: 36415; 36591; 70450; 72125; 80053; 80305; 80320; 81001; 82962; 83605; 85025; 85610; 85730; 87077; 87086; 87186; 93005; 93010; 99283; 99285

== ENCOUNTER → 2020-02-01 15:13 | Outpatient (ROUT) | payer MEDICARE, OTHER, SELFPAY ==
[2020-02-01 15:22] LABS: Add Manual Diff / Slide Review NO; Basophils Absolute Auto 100 /uL (0-100); Basophils Percent Auto 0.6 % (0-2); Eosinophils Absolute Auto 200 /uL (0-450); Hematocrit 37.2 % (36-46); Hemoglobin 12.2 g/dL (12.0-16.0); Lymphocytes Absolute Auto 1700 /uL (1100-4500); Lymphocytes Percent Auto 20.9 % (25-40); Mean Corpuscular HGB Conc 32.7 % (30-36); Mean Corpuscular Hemoglobin 29.3 PG (26-34); Mean Corpuscular Volume 89.5 fL (80-100); Monocytes Absolute Auto 700 /uL (0-900); Monocytes Percent Auto 8.5 % (3-14); Neutrophils Absolute Auto 5400 /uL (1500-7000); Platelet Count 283 X10^3/uL (150-400); Red Blood Cell Count 4.16 X10^6/uL (4.0-5.2); Red Cell Distribution Width 14.7 % (11.6-14.8)
[2020-02-01 16:52] LABS: Alanine Aminotransferase 9 IU/L (<35); Albumin 3.6 g/dL (3.5-5.0); Albumin Globulin Ratio 1.3 (1.0-2.8); Alkaline Phosphatase 87 U/L (38-126); Aspartate Aminotransferase 22 IU/L (14-36); BUN Creatinine Ratio 13.6 (6-22); Bilirubin Total 0.6 mg/dL (0.2-1.3); Blood Urea Nitrogen 9 mg/dL (7-17); Calcium 9.3 mg/dL (8.4-10.2); Carbon Dioxide 24 mmol/L (22-32); Chloride 107 mmol/L (98-107); Cholesterol 285 mg/dL (140-199); Estimated Glomerular Filt Rate > 60.0 mL/min (>60); Globulin 2.7 g/dL (1.7-4.1); Glucose 87 mg/dL (80-110); HDL Cholesterol 67 mg/dL (40-60); HEMOLYSIS < 15 (0-50); LDL Cholesterol Calculated 185 mg/dL (<100); Sodium 137 mmol/L (137-145); Total Protein 6.3 g/dL (6.3-8.2); Triglycerides 163 mg/dL (35-150)
[2020-02-01 17:22] LABS: TSH w/ Reflex to FT4 1.15 uIU/mL (0.47-4.68)
[2020-02-01 17:42] LABS: Vitamin B12 298 pg/mL (239-931)
== END ==
PROVIDERS: PCP Family Medicine; Visit Provider Internal Medicine
DX: I10 Essential (primary) hypertension (principal); E78.2 Mixed hyperlipidemia; E53.8 Deficiency of other specified B group vitamins
CPT/HCPCS: 80053; 80061; 82607; 84443; 85025

== ENCOUNTER → 2020-09-13 07:53 | Outpatient (CLI) | payer MEDICARE, OTHER, SELFPAY ==
[2020-09-13] MEDS: COVID-19 VACC, Ad26(JANSSEN)/PF 0.5 ML IM (08:13)
== END ==
PROVIDERS: PCP Family Medicine; Visit Provider Internal Medicine
DX: Z23 Encounter for immunization (principal)
CPT/HCPCS: 0031A; 91303

== ENCOUNTER 2022-07-31 18:00 | Observation (INO) | payer MEDICARE, MEDICAID, SELFPAY ==
[2022-07-31] VITALS (8 sets, daily range): BP systolic 123–124; BP diastolic 58–62; PULSE 100–109; RESP 18; TEMP 36.8; O2SAT 92–100; BMI 20.5
--- NOTE | 2022-07-31 18:54 | PC.NURSE ---
Patient arrives via EMS due to unlivable situation. EMS reports that the patient has been received and eviction notice due to the conditions in her apartment. EMS reports free standing urine and feces throughout the apartment. Patient denies having any reason to come to the ED. Patient denies having any pain. Patient arrives in shirt, pants and shoes. This RN with assistance from a fellow RN and patient agreement removed her clothes. RN's assisted patient by giving a bed bath to patient. Patient had feces in and around toes, feet, stomach, williams area, buttock and back. Patient skin was pink, cool and moist. Patients bottom has excoriation, barrier cream was placed. Patient placed in clean gown and given warm blankets. Patient encouraged to use call lights for any need.
--- NOTE | 2022-07-31 19:18 | DI.RAD.S_ITS ---
PROCEDURE: XR CHEST 1V INDICATIONS: eval for PNA TECHNIQUE: One view of the chest was acquired. COMPARISON: [facility], CT, CT HEAD/BRAIN WO CON, 07/31/2022, 19:29. [facility], CR, CHEST 1 VIEW, 07/31/2009, 4:57. FINDINGS: Surgical changes and devices: None. Lungs and pleura: An incomplete inspiratory result is noted, causing a crowded appearance to the lung markings. No focal infiltrates are seen. No pneumothorax or significant pleural effusions are seen. Mediastinum: Mediastinal contours appear normal. Heart size is normal. Atherosclerotic calcification of the aortic arch is noted. Bones and chest wall: No suspicious bony lesions. Age-appropriate bony degenerative changes are seen. Overlying soft tissues appear unremarkable. IMPRESSION: Unremarkable portable chest for age, without focal infiltrate. If there is clinical concern for a developing pulmonary process, a short-term followup chest series (with PA and lateral views, performed in deep inspiration) is suggested for further evaluation. Dictated by: Chris Casanova M.D. on 07/31/2022 at 18:53 Approved by: Chris Casanova M.D. on 07/31/2022 at 18:53
--- NOTE | 2022-07-31 19:19 | DI.CT.S_ITS ---
PROCEDURE: CT HEAD/BRAIN WO CON INDICATIONS: AMS TECHNIQUE: Noncontrast 4.5 mm thick angled axial sections acquired from the foramen magnum to the vertex, with coronal and sagittal reformats. For radiation dose reduction, the following was used: automated exposure control, adjustment of mA and/or kV according to patient size. COMPARISON: [facility], CR, XR CHEST 1V, 07/31/2022, 19:17. [facility], CT, CT HEAD/BRAIN WO CON, 03/14/2018, 18:03. FINDINGS: Image quality: Excellent. CSF spaces: Basal cisterns are patent. No extra-axial fluid collections. The ventricles are symmetric in size and shape. Brain: No intracranial bleeds or masses. There is cerebral volume loss for age, with resultant ventricular and sulcal prominence. There are periventricular and deep white matter chronic small vessel ischemic changes. There is intracranial internal carotid artery atherosclerosis. Skull and face: Calvarium and visualized facial bones appear intact, without suspicious lesions. Incidental note is made of hyperostosis frontalis. This is not considered to be pathologic in a woman of this age. Focal prominent degenerative change can be seen involving the temporomandibular joints. Sinuses: Visualized sinuses and mastoids are clear. IMPRESSION: Stable intracranial study, without a cause of altered mental status identified. Focal prominent temporomandibular joint degenerative change noted. Dictated by: Chris Casanova M.D. on 07/31/2022 at 18:55 Approved by: Chris Casanova M.D. on 07/31/2022 at 18:56
[2022-07-31 19:25] LABS: Add Manual Diff / Slide Review NO; Basophils Absolute Auto 100 /uL (0-100); Basophils Percent Auto 0.8 % (0-2); Eosinophils Absolute Auto 100 /uL (0-450); Eosinophils Percent Auto 1.1 % (2-4); Hematocrit 35.7 % (36-46); Hemoglobin 11.6 g/dL (12.0-16.0); Lymphocytes Absolute Auto 1700 /uL (1100-4500); Lymphocytes Percent Auto 22.5 % (25-40); Mean Corpuscular HGB Conc 32.4 % (30-36); Mean Corpuscular Hemoglobin 28.2 PG (26-34); Monocytes Absolute Auto 900 /uL (0-900); Monocytes Percent Auto 11.4 % (3-14); Neutrophils Absolute Auto 5000 /uL (1500-7000); Neutrophils Percent Auto 64.2 % (50-75); Platelet Count 194 X10^3/uL (150-400); Red Blood Cell Count 4.11 X10^6/uL (4.0-5.2); White Blood Cell Count 7.7 X10^3/uL (4.5-11.0)
--- NOTE | 2022-07-31 19:29 | CM.SWNOTE ---
Brief ED DCP Note Patient is 81 y/o female who resides at [facility]. Patient was brought in via EMS with [employer] and [facility] [employer] [facility] due to concern for patient's living condition, as her apartment is unsanitary, full of feces & smells of urine. There is a current report to [employer]PS due to concern for self neglect and Patient has been seen by [employer] animal control due to concern for inability to care for her dogs. Patient has hx of Dementia, UTIs, hip replacement and ETOH use. Patient has not seen PCP since 2018, Tomy Deborajoaquin attempted to secure f/u appt for her but it was reported that she is no longer a patient of Dr. White. Patient has Medicare and [facility]. It was reported by EMS and [facility] [employer] that patient has grandson but grandson does not answer phone and his mailbox is full. It is reported that patient denies concern and denies need for ED visit. It was reported by [facility] [employer] [facility] that patient has been evicted but the entry level account executive at [facility] Georgina (Ph. # [phone]) has been accommodating to patient needs. At this time patient has not been seen by ED provider. Plan: Patient to be evaluated by ED provider, f/u with Tomy Burns and patient's residence upon medical clearance for d/c. It is unknown at this time what patient's lab results are. SUDHA VillanuevaSW
[2022-07-31 19:33] LABS: Alanine Aminotransferase 14 IU/L (<35); Albumin 3.9 g/dL (3.5-5.0); Albumin Globulin Ratio 1.2 (1.0-2.8); Alkaline Phosphatase 69 U/L (38-126); Aspartate Aminotransferase 20 IU/L (14-36); BUN Creatinine Ratio 23.2 (6-22); Bilirubin Total 0.2 mg/dL (0.2-1.3); Blood Urea Nitrogen 16 mg/dL (7-17); Carbon Dioxide 31 mmol/L (22-32); Chloride 102 mmol/L (98-107); Creatine Kinase 35 U/L (30-135); Estimated Glomerular Filt Rate > 60 mL/min (>60); Globulin 3.2 g/dL (1.7-4.1); Glucose 106 mg/dL (80-110); HEMOLYSIS < 15 (0-50); Lactate (Lactic Acid) 1.3 mmol/L (0.7-2.1); Lipase 90 U/L (23-300); Magnesium 2.2 mg/dL (1.6-2.3); Potassium 3.8 mmol/L (3.4-5.1); Sodium 139 mmol/L (137-145); Total Protein 7.1 g/dL (6.3-8.2)
[2022-07-31 19:44] LABS: Troponin I < 0.012 ng/mL (0.01-0.034)
--- NOTE | 2022-07-31 22:58 | ED_ITS ---
HPI - General Adult <Edi Buck DO - Last Filed: 08/02/22 18:06> General Chief complaint: Urogenital-Female Stated complaint: gabriel, failure to thrive Time Seen by Provider: 07/31/22 18:33 Source: patient, family, EMS and police Mode of arrival: EMS Limitations: other History of Present Illness HPI narrative: Patient is an 81-year-old female who arrives by EMS under an GABRIEL from [facility] department for evaluation of concerns about grave disability and inability to take care of herself. The police and community construction materials tester have been involved with the patient's since the beginning of last month. They have been called to her house multiple times for various issues. EPS was filed at the beginning of last month after she was found to have a home that was in general disarray. Was dirty. Smelled of urine. There was also concern about her ability to take care of her pets. Over the past 6-8 weeks they have been out to the facility multiple times for various issues and they have continued to noticed a decline in the patient's living condition. It turns out that the pow er to the patient's stone was turned off by the living facility because she has been leaving the burners on. It also turns out that the water has been turned off because she was flushing dog weighs down the toilet causing it over flow. During the visit today the patient states she did not have any medications although it is known that she has medications. Is unsure as to how long she is been out of all of her medicines. It was determined that her living condition had declined so much that she should be brought to the emergency department for further evaluation. Upon my evaluation patient states she does not know why she is here. She states she feels fine. She does not really want to be in the emergency department. When asked about the events that brought her in today she stated that she likes to be alone which is why she does not go wound does not asked for help. She states she does have relatives in the area. There is an individual which she initially called her son but which turns out to be her grandson who lives in the area. Patient does have a primary doctor in the area. Related Data Home Medications Medication Instructions Recorded Confirmed acetaminophen 500 mg tablet 1,000 mg PO BID ##0 07/07/17 03/09/18 (Tylenol Extra Strength) digoxin 250 mcg (0.25 mg) tablet 0.25 mg PO QDAY ##0 07/07/17 03/09/18 (Lanoxin) diltiazem HCl 240 mg 240 mg PO QDAY ##0 07/20/17 03/09/18 tablet,extended release 24 hr (Cardizem LA) docusate sodium 100 mg capsule 100 mg PO QDAY ##0 07/20/17 03/09/18 (Colace) zolpidem 6.25 mg tablet,extended 6.25 mg PO HS ##0 07/20/17 03/09/18 release,multiphase (Ambien CR) rosuvastatin 20 mg tablet 20 mg PO DAILY 12/24/17 03/09/18 Previous Rx's Medication Instructions Recorded aspirin 81 mg tablet,delayed 81 mg PO BID #60 tabs 07/21/17 release hydrocodone 5 mg-acetaminophen 325 1 tab PO Q4HP PRN #60 tabs 07/22/17 mg tablet (Magee) nitrofurantoin 100 mg PO BID #20 caps 03/14/18 monohydrate/macrocrystals 100 mg capsule (Macrobid) Allergies Allergy/AdvReac Type Severity Reaction Status Date / Time Sulfa (Sulfonamide Allergy Severe NAUSEA, Verified 11/07/21 10:31 Antibiotics) VAGINAL [SULFA (SULFONAMIDE ITCHING ANTIBIOTICS)] oxycodone [OXYCODONE] Allergy Unknown Verified 11/07/21 10:31 codeine [CODEINE] AdvReac Intermediate NAUSEA Verified 11/07/21 10:31 Review of Systems <Edi Buck DO - Last Filed: 08/02/22 18:06> Constitutional Comments: Denies fevers or headache Cardiovascular Comments: Denies chest pain Respiratory Comments: Denies problems breathing Gastrointestinal Comments: Denies abdominal pain nausea vomiting Musculoskeletal Comments: Denies any muscle or joint aches Neurologic Comments: She reported by EMS/police that the patient was confused Patient History <Edi Buck DO - Last Filed: 08/02/22 18:06> Surgical History (Updated 11/03/17 @ 06:15 by Conversion Provider) History of hip replacement Status post delivery Status post hysterectomy Social History marital status: household members: none lives independently: Yes caregiver/support person: No housing: house Smoking Status: Former smoker second hand exposure: No alcohol intake: current substance use type: does not use Smoking Status: Smoker, status unknown alcohol intake frequency: 3 or more drinks per day Substance Use Type: does not use Exam <Edi Buck DO - Last Filed: 08/02/22 18:06> Initial Vital Signs Initial Vital Signs: Vital Signs Pulse Rate 109 H 07/31/22 18:33 Pulse Oximetry 99 07/31/22 18:33 HENMT Head: normal to inspection and normocephalic Resp Effort & Inspection: normal respiratory effort Auscultation: clear to auscultation bilaterally Cardio Rate: regular rate Rhythm: regular rhythm GI Inspection: normal to inspection and non-distended Skin General: no rashes or lesions noted Neuro General: patient alert, patient awake and moves all extremities Other: Oriented to person and place but not year. Extrem General: normal to inspection and capillary refill normal Psych Other: Patient does seem somewhat confused about why she is here but does know where e is. She does know her date and her name. She does not know what year it is. She does not know the name of the president. <Mari Barnett DO - Last Filed: 08/04/22 08:39> Initial Vital Signs Initial Vital Signs: Vital Signs Pulse Rate 109 H 07/31/22 18:33 Pulse Oximetry 99 07/31/22 18:33 <Melinda Balderrama DO - Last Filed: 08/02/22 17:02> Initial Vital Signs Initial Vital Signs: Vital Signs Pulse Rate 109 H 07/31/22 18:33 Pulse Oximetry 99 07/31/22 18:33 Scores <Edi Buck DO - Last Filed: 08/02/22 18:06> GCS [place] coma scale eye opening: Spontaneous [place] coma scale verbal response: Confused [place] coma scale motor response: Obey commands [place] coma scale total score: 14 <Mari Barnett DO - Last Filed: 08/04/22 08:39> GCS [place] coma scale total score: 14 <Melinda Balderrama DO - Last Filed: 08/02/22 17:02> GCS [place] coma scale total score: 14 Course <Edi Buck DO - Last Filed: 08/02/22 18:06> Orders Ordered: Acetaminophen (Acetaminophen 325 Mg Tablet) 650 mg PO Q6H PRN PRN Reason: Fever/Mild Pain (1-3) Last Admin: 08/03/22 11:58 Dose: 650 mg Documented By: RLBasia Admin: 08/02/22 17:14 Dose: 650 mg Documented By: HCW Aspirin (Aspirin Ec 81 Mg Tablet) 162 mg PO DAILY [facility] Last Admin: 08/03/22 11:58 Dose: 162 mg Documented By: OSMEL Benzocaine (Benzocaine/Menthol 1 Romel Pkt) 1 each PO Q4HR PRN PRN Reason: Sore Throat Last Admin: 08/02/22 20:30 Dose: 1 each Documented By: ASHLEYW Ceftriaxone Sodium 1,000 mg/ (Sodium Chloride) 100 mls @ 200 mls/hr IV Q24H [facility] Stop: 08/05/22 10:59 Last Admin: 08/03/22 11:56 Dose: 200 mls/hr Documented By: Infusion: 08/02/22 11:38 Dose: 0 mls/hr Documented By: Admin: 08/02/22 11:08 Dose: 200 mls/hr Documented By: HCW Naloxone HCl (Naloxone 0.4 Mg/Ml Vial) 0.2 mg IV Q2MIN PRN PRN Reason: Opiate Reversal Quetiapine Fumarate (Quetiapine 25 Mg Tablet) 25 mg PO BEDTIME [facility] Last Admin: 08/03/22 21:01 Dose: 25 mg Documented By: Admin: 08/02/22 20:28 Dose: 25 mg Documented By: ASHLEYW Discontinued Medications Ceftriaxone Sodium 1,000 mg/ (Sodium Chloride) 100 mls @ 200 mls/hr IV NOW ONE Stop: 08/01/22 07:04 Last Infusion: 08/01/22 10:06 Dose: 0 mls/hr Documented By: Admin: 08/01/22 08:39 Dose: 200 mls/hr Documented By: BANDAR Ceftriaxone Sodium 1,000 mg/ (Sodium Chloride) 100 mls @ 200 mls/hr IV NOW ONE Stop: 08/02/22 10:01 Last Admin: 08/02/22 10:42 Dose: Not Given Documented By: HCW Quetiapine Fumarate (Quetiapine 25 Mg Tablet) 25 mg PO NOW ONE Stop: 08/01/22 19:40 Last Admin: 08/01/22 20:05 Dose: 25 mg Documented By: RYAN Vital Signs Vital signs: Vital Signs - 8 hr 07/31/22 19:40 07/31/22 20:00 07/31/22 20:30 Pulse Rate 100 H 102 H 100 H Pulse Oximetry 92 100 99 Oxygen Delivery Method 07/31/22 21:00 Pulse Rate 100 H Pulse Oximetry 99 Oxygen Delivery Method Room Air <Mari Barnett DO - Last Filed: 08/04/22 08:39> Orders Ordered: Acetaminophen (Acetaminophen 325 Mg Tablet) 650 mg PO Q6H PRN PRN Reason: Fever/Mild Pain (1-3) Last Admin: 08/03/22 11:58 Dose: 650 mg Documented By: RLBasia Admin: 08/02/22 17:14 Dose: 650 mg Documented By: HCW Aspirin (Aspirin Ec 81 Mg Tablet) 162 mg PO DAILY [facility] Last Admin: 08/03/22 11:58 Dose: 162 mg Documented By: OSMEL Benzocaine (Benzocaine/Menthol 1 Romel Pkt) 1 each PO Q4HR PRN PRN Reason: Sore Throat Last Admin: 08/02/22 20:30 Dose: 1 each Documented By: ASHLEYW Ceftriaxone Sodium 1,000 mg/ (Sodium Chloride) 100 mls @ 200 mls/hr IV Q24H [facility] Stop: 08/05/22 10:59 Last Admin: 08/03/22 11:56 Dose: 200 mls/hr Documented By: Infusion: 08/02/22 11:38 Dose: 0 mls/hr Documented By: Admin: 08/02/22 11:08 Dose: 200 mls/hr Documented By: HCW Naloxone HCl (Naloxone 0.4 Mg/Ml Vial) 0.2 mg IV Q2MIN PRN PRN Reason: Opiate Reversal Quetiapine Fumarate (Quetiapine 25 Mg Tablet) 25 mg PO BEDTIME [facility] Last Admin: 08/03/22 21:01 Dose: 25 mg Documented By: Admin: 08/02/22 20:28 Dose: 25 mg Documented By: AGW Discontinued Medications Ceftriaxone Sodium 1,000 mg/ (Sodium Chloride) 100 mls @ 200 mls/hr IV NOW ONE Stop: 08/01/22 07:04 Last Infusion: 08/01/22 10:06 Dose: 0 mls/hr Documented By: Admin: 08/01/22 08:39 Dose: 200 mls/hr Documented By: BANDAR Ceftriaxone Sodium 1,000 mg/ (Sodium Chloride) 100 mls @ 200 mls/hr IV NOW ONE Stop: 08/02/22 10:01 Last Admin: 08/02/22 10:42 Dose: Not Given Documented By: HCW Quetiapine Fumarate (Quetiapine 25 Mg Tablet) 25 mg PO NOW ONE Stop: 08/01/22 19:40 Last Admin: 08/01/22 20:05 Dose: 25 mg Documented By: RYAN Vital Signs Vital signs: Vital Signs - 8 hr 07/31/22 19:40 07/31/22 20:00 07/31/22 20:30 Pulse Rate 100 H 102 H 100 H Pulse Oximetry 92 100 99 Oxygen Delivery Method 07/31/22 21:00 Pulse Rate 100 H Pulse Oximetry 99 Oxygen Delivery Method Room Air <Melinda Balderrama DO - Last Filed: 08/02/22 17:02> Orders Ordered: Acetaminophen (Acetaminophen 325 Mg Tablet) 650 mg PO Q6H PRN PRN Reason: Fever/Mild Pain (1-3) Last Admin: 08/03/22 11:58 Dose: 650 mg Documented By: Admin: 08/02/22 17:14 Dose: 650 mg Documented By: HCW Aspirin (Aspirin Ec 81 Mg Tablet) 162 mg PO DAILY [facility] Last Admin: 08/03/22 11:58 Dose: 162 mg Documented By: OSMEL Benzocaine (Benzocaine/Menthol 1 Romel Pkt) 1 each PO Q4HR PRN PRN Reason: Sore Throat Last Admin: 08/02/22 20:30 Dose: 1 each Documented By: ASHLEYW Ceftriaxone Sodium 1,000 mg/ (Sodium Chloride) 100 mls @ 200 mls/hr IV Q24H [facility] Stop: 08/05/22 10:59 Last Admin: 08/03/22 11:56 Dose: 200 mls/hr Documented By: Infusion: 08/02/22 11:38 Dose: 0 mls/hr Documented By: Admin: 08/02/22 11:08 Dose: 200 mls/hr Documented By: HCW Naloxone HCl (Naloxone 0.4 Mg/Ml Vial) 0.2 mg IV Q2MIN PRN PRN Reason: Opiate Reversal Quetiapine Fumarate (Quetiapine 25 Mg Tablet) 25 mg PO BEDTIME [facility] Last Admin: 08/03/22 21:01 Dose: 25 mg Documented By: Admin: 08/02/22 20:28 Dose: 25 mg Documented By: AGW Discontinued Medications Ceftriaxone Sodium 1,000 mg/ (Sodium Chloride) 100 mls @ 200 mls/hr IV NOW ONE Stop: 08/01/22 07:04 Last Infusion: 08/01/22 10:06 Dose: 0 mls/hr Documented By: Admin: 08/01/22 08:39 Dose: 200 mls/hr Documented By: RLS Ceftriaxone Sodium 1,000 mg/ (Sodium Chloride) 100 mls @ 200 mls/hr IV NOW ONE Stop: 08/02/22 10:01 Last Admin: 08/02/22 10:42 Dose: Not Given Documented By: HCW Quetiapine Fumarate (Quetiapine 25 Mg Tablet) 25 mg PO NOW ONE Stop: 08/01/22 19:40 Last Admin: 08/01/22 20:05 Dose: 25 mg Documented By: BS Vital Signs Vital signs: Vital Signs - 8 hr 07/31/22 19:40 07/31/22 20:00 07/31/22 20:30 Pulse Rate 100 H 102 H 100 H Pulse Oximetry 92 100 99 Oxygen Delivery Method 07/31/22 21:00 Pulse Rate 100 H Pulse Oximetry 99 Oxygen Delivery Method Room Air Medical Decision Making <Edi Buck DO - Last Filed: 08/02/22 18:06> Differential Diagnosis Differential Diagnosis: Failure to thrive, CVA, TIA, electrolyte abnormality and other Medical Records Medical records reviewed: Yes I reviewed the patient's medical records. Lab Data Lab results reviewed: Yes I reviewed the patient's lab results. 07/31/22 18:37 07/31/22 18:37 Labs: Lab Results 07/31/22 07/31/22 07/31/22 Range/Units 18:37 18:37 18:37 WBC 7.7 (4.5-11.0) X10^3/uL RBC 4.11 (4.0-5.2) X10^6/uL Hgb 11.6 L (12.0-16.0) g/dL Hct 35.7 L (36-46) % MCV 87.0 (80-100) fL MCH 28.2 (26-34) PG MCHC 32.4 (30-36) % RDW 16.0 H (11.6-14.8) % Plt Count 194 (150-400) X10^3/uL Neut % (Auto) 64.2 (50-75) % Lymph % (Auto) 22.5 L (25-40) % Chaves % (Auto) 11.4 (3-14) % Eos % (Auto) 1.1 L (2-4) % Baso % (Auto) 0.8 (0-2) % Neut # (Auto) 5000 (6023-0075) /uL Lymph # (Auto) 1700 (5179-0181) /uL Chaves # (Auto) 900 (0-900) /uL Eos # (Auto) 100 (0-450) /uL Baso # (Auto) 100 (0-100) /uL Sodium 139 (137-145) mmol/L Potassium 3.8 (3.4-5.1) mmol/L Chloride 102 (98-107) mmol/L Carbon Dioxide 31 (22-32) mmol/L BUN 16 (7-17) mg/dL Creatinine 0.69 (0.52-1.04) mg/dL Estimated GFR > 60 (>60) mL/min BUN/Creatinine Ratio 23.2 H (6-22) Glucose 106 (80-110) mg/dL Lactate 1.3 (0.7-2.1) mmol/L Calcium 9.0 (8.4-10.2) mg/dL Magnesium 2.2 (1.6-2.3) mg/dL Total Bilirubin 0.2 (0.2-1.3) mg/dL AST 20 (14-36) IU/L ALT 14 (<35) IU/L Alkaline Phosphatase 69 (38-126) U/L Total Creatine Kinase 35 (30-135) U/L CK-MB (CK-2) TNP CK-MB (CK-2) Rel Index TNP Troponin I < 0.012 (0.01-0.034) ng/mL Total Protein 7.1 (6.3-8.2) g/dL Albumin 3.9 (3.5-5.0) g/dL Globulin 3.2 (1.7-4.1) g/dL Albumin/Globulin Ratio 1.2 (1.0-2.8) Lipase 90 (23-300) U/L Urine Color Urine Appearance Urine pH (4.5-8.0) Ur Specific [place] (1.000-1.035) Urine Protein (Negative) Urine Glucose (UA) (Negative) g/dL Urine Ketones (NEGATIVE) Urine Occult Blood (Negative) Urine Nitrate (Negative) Urine Bilirubin (NEGATIVE) Urine Urobilinogen (0.2) E.U./dL Ur Leukocyte Esterase (NEGATIVE) Urine RBC (0-5/HPF) Urine WBC (0-5/HPF) Ur Squamous Epith Cells (0-5/HPF) Amorphous Sediment Urine Bacteria (None) 08/01/22 Range/Units 07:28 WBC (4.5-11.0) X10^3/uL RBC (4.0-5.2) X10^6/uL Hgb (12.0-16.0) g/dL Hct (36-46) % MCV (80-100) fL MCH (26-34) PG MCHC (30-36) % RDW (11.6-14.8) % Plt Count (150-400) X10^3/uL Neut % (Auto) (50-75) % Lymph % (Auto) (25-40) % Chaves % (Auto) (3-14) % Eos % (Auto) (2-4) % Baso % (Auto) (0-2) % Neut # (Auto) (5742-8709) /uL Lymph # (Auto) (8216-0047) /uL Ch[place] # (Auto) (0-900) /uL Eos # (Auto) (0-450) /uL Baso # (Auto) (0-100) /uL Sodium (137-145) mmol/L Potassium (3.4-5.1) mmol/L Chloride (98-107) mmol/L Carbon Dioxide (22-32) mmol/L BUN (7-17) mg/dL Creatinine (0.52-1.04) mg/dL Estimated GFR (>60) mL/min BUN/Creatinine Ratio (6-22) Glucose (80-110) mg/dL Lactate (0.7-2.1) mmol/L Calcium (8.4-10.2) mg/dL Magnesium (1.6-2.3) mg/dL Total Bilirubin (0.2-1.3) mg/dL AST (14-36) IU/L ALT (<35) IU/L Alkaline Phosphatase (38-126) U/L Total Creatine Kinase (30-135) U/L CK-MB (CK-2) CK-MB (CK-2) Rel Index Troponin I (0.01-0.034) ng/mL Total Protein (6.3-8.2) g/dL Albumin (3.5-5.0) g/dL Globulin (1.7-4.1) g/dL Albumin/Globulin Ratio (1.0-2.8) Lipase (23-300) U/L Urine Color Yellow Urine Appearance Clear Urine pH 7.5 (4.5-8.0) Ur Specific [place] 1.010 (1.000-1.035) Urine Protein Negative (Negative) Urine Glucose (UA) Negative (Negative) g/dL Urine Ketones Negative (NEGATIVE) Urine Occult Blood Negative (Negative) Urine Nitrate Positive H (Negative) Urine Bilirubin Negative (NEGATIVE) Urine Urobilinogen 0.2 (0.2) E.U./dL Ur Leukocyte Esterase 3+ H (NEGATIVE) Urine RBC 0-1/hpf (0-5/HPF) Urine WBC 5-10/hpf H (0-5/HPF) Ur Squamous Epith Cells 1-5 /hpf (0-5/HPF) Amorphous Sediment 1+ Urine Bacteria Many (>30) H (None) Urine Dip Bedside Urine Glucose Negative Bedside Urine Bilirubin - Negative Bedside Urine Ketone - Negative Urine Specific [place] 1.010 Bedside Urine Occult Blood - Negative Bedside Urine pH 7.5 Bedside Urine Protein - Negative Bedside Urine Urobilinogen - Negative Bedside Urine Nitrite + Positive Bedside Urine Leukocytes +++ 500 Esterase Point of care testing: Urine Dip Bedside Urine Glucose Negative Bedside Urine Bilirubin - Negative Bedside Urine Ketone - Negative Urine Specific [place] 1.010 Bedside Urine Occult Blood - Negative Bedside Urine pH 7.5 Bedside Urine Protein - Negative Bedside Urine Urobilinogen - Negative Bedside Urine Nitrite + Positive Bedside Urine Leukocytes +++ 500 Esterase Imaging Data Chest x-ray: Radiologist's Impression: [address] [address] XRay Report Signed Patient: May Andres MR#: [id number] : 1940 Acct:[id number] Age/Sex: 81 / F Date of Service: 07/31/22 Loc: ED Accession Number: [id number] ?? Procedure: XR chest 1V Ordering Provider: Edi Buck D.O. PROCEDURE:? XR CHEST 1V ? INDICATIONS:? eval for PNA ? TECHNIQUE:? One view of the chest was acquired.? ? COMPARISON:? [facility], CT, CT HEAD/BRAIN WO CON, 07/31/2022, 19:29.? [facility], CR, CHEST 1 VIEW, 07/31/2009, 4:57. ? FINDINGS:? ? Surgical changes and devices:? None.? ? Lungs and pleura:? An incomplete inspiratory result is noted, causing a crowded appearance to the lung markings.? No focal infiltrates are seen.? No pneum othorax or significant pleural effusions are seen. ? ? Mediastinum:? Mediastinal contours appear normal.? Heart size is normal. Atherosclerotic calcification of the aortic arch is noted. ? ? Bones and chest wall:? No suspicious bony lesions.? Age-appropriate bony degenerative changes are seen.? ? Overlying soft tissues appear unremarkable.? IMPRESSION:? Unremarkable portable chest for age, without focal infiltrate. ? If there is clinical concern for a developing pulmonary process, a short-term followup chest series (with PA and lateral views, performed in deep inspiration) is suggested for further evaluation. ? ? ? Dictated by: Chris Casanova M.D. on 07/31/2022 at 18:53 ? ? Approved by: Chris Casanova M.D. on 07/31/2022 at 18:53?? CT scan - head: Radiologist's Impression: [address] [address] [address] Scan Report Signed Patient: May Andres MR#: [id number] : 1940 Acct:[id number] Age/Sex: 81 / F Date of Service: 07/31/22 Loc: ED Accession Number: [id number] ?? Procedure: CT head/brain wo con Ordering Provider: Edi Buck D.O. PROCEDURE:? CT HEAD/BRAIN WO CON ? INDICATIONS:? AMS ? TECHNIQUE:? Noncontrast 4.5 mm thick angled axial sections acquired from the foramen magnum to the vertex, with coronal and sagittal reformats.? For radiation dose reduction, the following was used:? automated exposure control, adjustment of mA and/or kV according to patient size.? ? COMPARISON:? [facility], CR, XR CHEST 1V, 07/31/2022, 19:17.? [facility], CT, CT HEAD/BRAIN WO CON, 03/14/2018, 18:03. ? FINDINGS:? Image quality:? Excellent.? ? CSF spaces:? Basal cisterns are patent.? No extra-axial fluid collections.? The ventricles are symmetric in size and shape.? ? Brain:? No intracranial bleeds or masses.? There is cerebral volume loss for age , with resultant ventricular and sulcal prominence.? There are periventricular and deep white matter chronic small vessel ischemic changes.? There is intracranial internal carotid artery atherosclerosis.? ? Skull and face:? Calvarium and visualized facial bones appear intact, without suspicious lesions.? Incidental note is made of hyperostosis frontalis. This is not considered to be pathologic in a woman of this age.? Focal prominent degenerative change can be seen involving the temporomandibular joints. ? Sinuses:? Visualized sinuses and mastoids are clear.? ? ? IMPRESSION:? Stable intracranial study, without a cause of altered mental status identified. ? Focal prominent temporomandibular joint degenerative change noted.? ? Dictated by: Chris Casanova M.D. on 07/31/2022 at 18:55 ? ? Approved by: Chris Casanova M.D. on 07/31/2022 at 18:56? ECG Data Attestation: I personally reviewed and interpreted this ECG as follows: Interpretation: Sinus rhythm Ventricular rate 96 Normal axis Normal QRS Normal QTC No ST T wave changes MDM Narrative Medical decision making narrative: Patient does seem somewhat confused and obviously does not agree with what was in the police report about the disarray of her apartment of the concern for her living conditions. She is no specific complaints. She did mention that she would family in the area. I did talk with her grandson (with the patient calls her son) over the phone. He stated that he did not know that she was here in the emergency department. He did state that there has been a decline with the patient. There was concern about her living situations. He stated that there has been some attempts to find other living situations for her however it appears that cost is cause some issues with this. I advised that the patient stay here in the emergency department to be evaluated by social work tomorrow. The patient's son agreed with this. Care turned over to day provider to continue to observe until disposition. 08/01/22 Ericka: Patient signed out to myself. Patient here for failure to thrive, medically cleared but does appear to need some assistance with appropriate disposition. [facility] did meet with patient's grandson, patient today seeking placement. Patient does appear to have dementia and appear to need assistance. APS is actively involved since June. Patient signed out to Dr. Buck while awaiting. Dr buck overnight 08/01-08/02: Received turned over. Reviewed patient's daily events. Patient did receive a Seroquel last evening. She seemed to tolerate this very well and did sleep. She is obviously confused she was stating that she had clothes that she left in the rooms adjacent to the 1 that she is staying in. She is ambulatory. Is tolerating oral intake. [facility] APPRENTICE has been involved. Patient is being treated for urinary tract infection. Her morning dose of Rocephin as ordered. Care turned over to Dr. Balderrama to continue to observe until disposition can be met. <Mari Barnett, DO - Last Filed: 08/04/22 08:39> Lab Data Labs: Lab Results 07/31/22 07/31/22 07/31/22 Range/Units 18:37 18:37 18:37 WBC 7.7 (4.5-11.0) X10^3/uL RBC 4.11 (4.0-5.2) X10^6/uL Hgb 11.6 L (12.0-16.0) g/dL Hct 35.7 L (36-46) % MCV 87.0 (80-100) fL MCH 28.2 (26-34) PG MCHC 32.4 (30-36) % RDW 16.0 H (11.6-14.8) % Plt Count 194 (150-400) X10^3/uL Neut % (Auto) 64.2 (50-75) % Lymph % (Auto) 22.5 L (25-40) % [place] % (Auto) 11.4 (3-14) % Eos % (Auto) 1.1 L (2-4) % Baso % (Auto) 0.8 (0-2) % Neut # (Auto) 5000 (8985-9687) /uL Lymph # (Auto) 1700 (1247-5556) /uL [place] # (Auto) 900 (0-900) /uL Eos # (Auto) 100 (0-450) /uL Baso # (Auto) 100 (0-100) /uL Sodium 139 (137-145) mmol/L Potassium 3.8 (3.4-5.1) mmol/L Chloride 102 (98-107) mmol/L Carbon Dioxide 31 (22-32) mmol/L BUN 16 (7-17) mg/dL Creatinine 0.69 (0.52-1.04) mg/dL Estimated GFR > 60 (>60) mL/min BUN/Creatinine Ratio 23.2 H (6-22) Glucose 106 (80-110) mg/dL Lactate 1.3 (0.7-2.1) mmol/L Calcium 9.0 (8.4-10.2) mg/dL Magnesium 2.2 (1.6-2.3) mg/dL Total Bilirubin 0.2 (0.2-1.3) mg/dL AST 20 (14-36) IU/L ALT 14 (<35) IU/L Alkaline Phosphatase 69 (38-126) U/L Total Creatine Kinase 35 (30-135) U/L CK-MB (CK-2) TNP CK-MB (CK-2) Rel Index TNP Troponin I < 0.012 (0.01-0.034) ng/mL Total Protein 7.1 (6.3-8.2) g/dL Albumin 3.9 (3.5-5.0) g/dL Globulin 3.2 (1.7-4.1) g/dL Albumin/Globulin Ratio 1.2 (1.0-2.8) Lipase 90 (23-300) U/L Urine Color Urine Appearance Urine pH (4.5-8.0) Ur Specific [place] (1.000-1.035) Urine Protein (Negative) Urine Glucose (UA) (Negative) g/dL Urine Ketones (NEGATIVE) Urine Occult Blood (Negative) Urine Nitrate (Negative) Urine Bilirubin (NEGATIVE) Urine Urobilinogen (0.2) E.U./dL Ur Leukocyte Esterase (NEGATIVE) Urine RBC (0-5/HPF) Urine WBC (0-5/HPF) Ur Squamous Epith Cells (0-5/HPF) Amorphous Sediment Urine Bacteria (None) 08/01/22 Range/Units 07:28 WBC (4.5-11.0) X10^3/uL RBC (4.0-5.2) X10^6/uL Hgb (12.0-16.0) g/dL Hct (36-46) % MCV (80-100) fL MCH (26-34) PG MCHC (30-36) % RDW (11.6-14.8) % Plt Count (150-400) X10^3/uL Neut % (Auto) (50-75) % Lymph % (Auto) (25-40) % [place] % (Auto) (3-14) % Eos % (Auto) (2-4) % Baso % (Auto) (0-2) % Neut # (Auto) (7178-7489) /uL Lymph # (Auto) (8401-7707) /uL Chaves # (Auto) (0-900) /uL Eos # (Auto) (0-450) /uL Baso # (Auto) (0-100) /uL Sodium (137-145) mmol/L Potassium (3.4-5.1) mmol/L Chloride (98-107) mmol/L Carbon Dioxide (22-32) mmol/L BUN (7-17) mg/dL Creatinine (0.52-1.04) mg/dL Estimated GFR (>60) mL/min BUN/Creatinine Ratio (6-22) Glucose (80-110) mg/dL Lactate (0.7-2.1) mmol/L Calcium (8.4-10.2) mg/dL Magnesium (1.6-2.3) mg/dL Total Bilirubin (0.2-1.3) mg/dL AST (14-36) IU/L ALT (<35) IU/L Alkaline Phosphatase (38-126) U/L Total Creatine Kinase (30-135) U/L CK-MB (CK-2) CK-MB (CK-2) Rel Index Troponin I (0.01-0.034) ng/mL Total Protein (6.3-8.2) g/dL Albumin (3.5-5.0) g/dL Globulin (1.7-4.1) g/dL Albumin/Globulin Ratio (1.0-2.8) Lipase (23-300) U/L Urine Color Yellow Urine Appearance Clear Urine pH 7.5 (4.5-8.0) Ur Specific [place] 1.010 (1.000-1.035) Urine Protein Negative (Negative) Urine Glucose (UA) Negative (Negative) g/dL Urine Ketones Negative (NEGATIVE) Urine Occult Blood Negative (Negative) Urine Nitrate Positive H (Negative) Urine Bilirubin Negative (NEGATIVE) Urine Urobilinogen 0.2 (0.2) E.U./dL Ur Leukocyte Esterase 3+ H (NEGATIVE) Urine RBC 0-1/hpf (0-5/HPF) Urine WBC 5-10/hpf H (0-5/HPF) Ur Squamous Epith Cells 1-5 /hpf (0-5/HPF) Amorphous Sediment 1+ Urine Bacteria Many (>30) H (None) Urine Dip Bedside Urine Glucose Negative Bedside Urine Bilirubin - Negative Bedside Urine Ketone - Negative Urine Specific [place] 1.010 Bedside Urine Occult Blood - Negative Bedside Urine pH 7.5 Bedside Urine Protein - Negative Bedside Urine Urobilinogen - Negative Bedside Urine Nitrite + Positive Bedside Urine Leukocytes +++ 500 Esterase Point of care testing: Urine Dip Bedside Urine Glucose Negative Bedside Urine Bilirubin - Negative Bedside Urine Ketone - Negative Urine Specific [place] 1.010 Bedside Urine Occult Blood - Negative Bedside Urine pH 7.5 Bedside Urine Protein - Negative Bedside Urine Urobilinogen - Negative Bedside Urine Nitrite + Positive Bedside Urine Leukocytes +++ 500 Esterase MDM Narrative Medical decision making narrative: Patient does seem somewhat confused and obviously does not agree with what was in the police report about the disarray of her apartment of the concern for her living conditions. She is no specific complaints. She did mention that she would family in the area. I did talk with her grandson (with the patient calls her son) over the phone. He stated that he did not know that she was here in the emergency department. He did state that there has been a decline with the patient. There was concern about her living situations. He stated that there has been some attempts to find other living situations for her however it appears that cost is cause some issues with this. I advised that the patient stay here in the emergency department to be evaluated by social work tomorrow. The patient's son agreed with this. Care turned over to day provider to continue to observe until disposition. 08/01/22 Mank: Patient signed out to myself. Patient here for failure to thrive, medically cleared but does appear to need some assistance with appropriate disposition. STONEMASON APPRENTICE did meet with patient's grandson, patient today seeking placement. Patient does appear to have dementia and appear to need assistance. APS is actively involved since June. Patient signed out to Dr. Buck while awaiting. <Melinda Balderrama, DO - Last Filed: 08/02/22 17:02> Lab Data Labs: Lab Results 07/31/22 07/31/22 07/31/22 Range/Units 18:37 18:37 18:37 WBC 7.7 (4.5-11.0) X10^3/uL RBC 4.11 (4.0-5.2) X10^6/uL Hgb 11.6 L (12.0-16.0) g/dL Hct 35.7 L (36-46) % MCV 87.0 (80-100) fL MCH 28.2 (26-34) PG MCHC 32.4 (30-36) % RDW 16.0 H (11.6-14.8) % Plt Count 194 (150-400) X10^3/uL Neut % (Auto) 64.2 (50-75) % Lymph % (Auto) 22.5 L (25-40) % Chaves % (Auto) 11.4 (3-14) % Eos % (Auto) 1.1 L (2-4) % Baso % (Auto) 0.8 (0-2) % Neut # (Auto) 5000 (4769-3272) /uL Lymph # (Auto) 1700 (2159-2027) /uL Chaves # (Auto) 900 (0-900) /uL Eos # (Auto) 100 (0-450) /uL Baso # (Auto) 100 (0-100) /uL Sodium 139 (137-145) mmol/L Potassium 3.8 (3.4-5.1) mmol/L Chloride 102 (98-107) mmol/L Carbon Dioxide 31 (22-32) mmol/L BUN 16 (7-17) mg/dL Creatinine 0.69 (0.52-1.04) mg/dL Estimated GFR > 60 (>60) mL/min BUN/Creatinine Ratio 23.2 H (6-22) Glucose 106 (80-110) mg/dL Lactate 1.3 (0.7-2.1) mmol/L Calcium 9.0 (8.4-10.2) mg/dL Magnesium 2.2 (1.6-2.3) mg/dL Total Bilirubin 0.2 (0.2-1.3) mg/dL AST 20 (14-36) IU/L ALT 14 (<35) IU/L Alkaline Phosphatase 69 (38-126) U/L Total Creatine Kinase 35 (30-135) U/L CK-MB (CK-2) TNP CK-MB (CK-2) Rel Index TNP Troponin I < 0.012 (0.01-0.034) ng/mL Total Protein 7.1 (6.3-8.2) g/dL Albumin 3.9 (3.5-5.0) g/dL Globulin 3.2 (1.7-4.1) g/dL Albumin/Globulin Ratio 1.2 (1.0-2.8) Lipase 90 (23-300) U/L Urine Color Urine Appearance Urine pH (4.5-8.0) Ur Specific [place] (1.000-1.035) Urine Protein (Negative) Urine Glucose (UA) (Negative) g/dL Urine Ketones (NEGATIVE) Urine Occult Blood (Negative) Urine Nitrate (Negative) Urine Bilirubin (NEGATIVE) Urine Urobilinogen (0.2) E.U./dL Ur Leukocyte Esterase (NEGATIVE) Urine RBC (0-5/HPF) Urine WBC (0-5/HPF) Ur Squamous Epith Cells (0-5/HPF) Amorphous Sediment Urine Bacteria (None) 08/01/22 Range/Units 07:28 WBC (4.5-11.0) X10^3/uL RBC (4.0-5.2) X10^6/uL Hgb (12.0-16.0) g/dL Hct (36-46) % MCV (80-100) fL MCH (26-34) PG MCHC (30-36) % RDW (11.6-14.8) % Plt Count (150-400) X10^3/uL Neut % (Auto) (50-75) % Lymph % (Auto) (25-40) % Chaves % (Auto) (3-14) % Eos % (Auto) (2-4) % Baso % (Auto) (0-2) % Neut # (Auto) (0183-5087) /uL Lymph # (Auto) (1067-8542) /uL Chaves # (Auto) (0-900) /uL Eos # (Auto) (0-450) /uL Baso # (Auto) (0-100) /uL Sodium (137-145) mmol/L Potassium (3.4-5.1) mmol/L Chloride (98-107) mmol/L Carbon Dioxide (22-32) mmol/L BUN (7-17) mg/dL Creatinine (0.52-1.04) mg/dL Estimated GFR (>60) mL/min BUN/Creatinine Ratio (6-22) Glucose (80-110) mg/dL Lactate (0.7-2.1) mmol/L Calcium (8.4-10.2) mg/dL Magnesium (1.6-2.3) mg/dL Total Bilirubin (0.2-1.3) mg/dL AST (14-36) IU/L ALT (<35) IU/L Alkaline Phosphatase (38-126) U/L Total Creatine Kinase (30-135) U/L CK-MB (CK-2) CK-MB (CK-2) Rel Index Troponin I (0.01-0.034) ng/mL Total Protein (6.3-8.2) g/dL Albumin (3.5-5.0) g/dL Globulin (1.7-4.1) g/dL Albumin/Globulin Ratio (1.0-2.8) Lipase (23-300) U/L Urine Color Yellow Urine Appearance Clear Urine pH 7.5 (4.5-8.0) Ur Specific [place] 1.010 (1.000-1.035) Urine Protein Negative (Negative) Urine Glucose (UA) Negative (Negative) g/dL Urine Ketones Negative (NEGATIVE) Urine Occult Blood Negative (Negative) Urine Nitrate Positive H (Negative) Urine Bilirubin Negative (NEGATIVE) Urine Urobilinogen 0.2 (0.2) E.U./dL Ur Leukocyte Esterase 3+ H (NEGATIVE) Urine RBC 0-1/hpf (0-5/HPF) Urine WBC 5-10/hpf H (0-5/HPF) Ur Squamous Epith Cells 1-5 /hpf (0-5/HPF) Amorphous Sediment 1+ Urine Bacteria Many (>30) H (None) Urine Dip Bedside Urine Glucose Negative Bedside Urine Bilirubin - Negative Bedside Urine Ketone - Negative Urine Specific [place] 1.010 Bedside Urine Occult Blood - Negative Bedside Urine pH 7.5 Bedside Urine Protein - Negative Bedside Urine Urobilinogen - Negative Bedside Urine Nitrite + Positive Bedside Urine Leukocytes +++ 500 Esterase Point of care testing: Urine Dip Bedside Urine Glucose Negative Bedside Urine Bilirubin - Negative Bedside Urine Ketone - Negative Urine Specific [place] 1.010 Bedside Urine Occult Blood - Negative Bedside Urine pH 7.5 Bedside Urine Protein - Negative Bedside Urine Urobilinogen - Negative Bedside Urine Nitrite + Positive Bedside Urine Leukocytes +++ 500 Esterase MDM Narrative Medical decision making narrative: Patient does seem somewhat confused and obviously does not agree with what was in the police report about the disarray of her apartment of the concern for her living conditions. She is no specific complaints. She did mention that she would family in the area. I did talk with her grandson (with the patient calls her son) over the phone. He stated that he did not know that she was here in the emergency department. He did state that there has been a decline with the patient. There was concern about her living situations. He stated that there has been some attempts to find other living situations for her however it appears that cost is cause some issues with this. I advised that the patient stay here in the emergency department to be evaluated by social work tomorrow. The patient's son agreed with this. Care turned over to day provider to continue to observe until disposition. 08/01/22 Mank: Patient signed out to myself. Patient here for failure to thrive, medically cleared but does appear to need some assistance with appropriate disposition. STONEMASON APPRENTICE did meet with patient's grandson, patient today seeking placement. Patient does appear to have dementia and appear to need assistance. APS is actively involved since June. Patient signed out to Dr. Buck while awaiting. Dr buck overnight 08/01-08/02: Received turned over. Reviewed patient's daily events. Patient did receive a Seroquel last evening. She seemed to tolerate this very well and did sleep. She is obviously confused she was stating that she had clothes that she left in the rooms adjacent to the 1 that she is staying in. She is ambulatory. Is tolerating oral intake. STONEMASON APPRENTICE has been involved. Patient is being treated for urinary tract infection. Her morning dose of Rocephin as ordered. Care turned over to Dr. Balderrama to continue to observe until disposition can be met. 08/02/22- OMAYRA patient signed out to me by Dr. Buck. Patient is awake and alert. Social work reports that she has 1 family member very little income long and money in the bank. She has no place to live she has dementia. This would be a very unsafe discharge. She is not cognitively able to provide for herself. Patient has been in the emergency department for over 30 hours without hope of placement. Dr. Hoskins accepts patient for observation Discharge Plan Departure Patient Disposition: Admitted As Inpatient Clinical Impression: Urinary tract infection Admit Date/Time: 08/02/22 09:05 Admit Provider: Yeimi Hoskins
[2022-08-01 04:18] VITALS: BP 125/84; PULSE 83; O2SAT 100
[2022-08-01 08:30] LABS: Appearance Urine UA CLEAR; Bilirubin Urine UA NEGATIVE (NEGATIVE); Color Urine UA YELLOW; Glucose Urine UA NEGATIVE (Negative); Ketones Urine UA NEGATIVE (NEGATIVE); Leukocyte Esterase Urine UA 3+ (NEGATIVE); Nitrite Urine UA POSITIVE (Negative); Occult Blood Urine UA NEGATIVE (Negative); Protein Urine UA NEGATIVE (Negative); Urobilinogen Urine UA 0.2 E.U./dL (0.2); pH Urine UA 7.5 (4.5-8.0)
[2022-08-01 08:38] LABS: Amorphous Sediment Urine 1+; Bacteria Urine Many (>30); RBC Urine 0-1/HPF (0-5/HPF); Squamous Epithelial Cell Urine 1-5 /HPF (0-5/HPF); WBC Urine 5-10/HPF (0-5/HPF)
[2022-08-01] MEDS: cefTRIAXone 1,000 MG in SODIUM CHLORIDE 0.9% 100 ML 200 MG IV (08:39)
--- NOTE | 2022-08-01 15:19 | CM.DANOTE ---
Initial DCP Assessment Note- ER Patient is an 81 yo female, resident at [facility], presents via EMS under an GABRIEL from [facility] for evaluation of concerns for grave disability, self neglect and inability to care for herself. This SCHOOL AGE TEACHER requested for consult to assess needs of this 81 yo and assist w/coordination of dispo from the ER Reviewed chart, reviewed the police report from [place], ALESSANDRA which outlined and summarized findings within the last month - -APD called early Dec to assess the safety of patient's two dogs, upon entry into patient's residence, APD encountered strong smelling odor of urine throughout the apt which patient had said she could not smell. In addition, apt was generally unkept and floor was soiled and littered with pet waste -Next visit weeks later, apt was found in similar condition, with foul odor and soiled clothing and linen throughout the apt. Both visits patient denied any smell, denied need for medical attention and denied need for assistance. Patient denied needing or taking medications -On 07.31.22, ALESSANDRA was again called to patient's residence, this time after coordinating [facility] [phone] who had shut off patient's electricity and water temporarily since patient had been leaving burners on and clogging the toilet. Patient's hygiene had deteriorated so badly the smell of urine had penetrated the entire facility Patient was brought to the ED under an GABRIEL for suspicion that she could no longer care for herself or live alone safely, furthermore, patient's environment had deteriorated so badly it was affecting other residents at [facility] [address] Note to follow to provide addtl background information MACARENA Raya Discharge Planning/Care Management CM Discharge Assessment Start: 08/01/22 15:07 Freq: Status: Active Protocol: Document 08/01/22 15:08 JOE (Rec: 08/01/22 15:19 JOE [id number]) Discharge Planning Assessment Assigned Roundhouse Worker MACARENA Schumacher DPJORDEN/Assigned Designee Name Federico García, grandson, adoptive son Contact Information [phone] Advance Directives? Yes: YES-DPOA Advance Directives on File No, [facility]or Tomy Burns History Provided By Family Member Prior Living Arrangements Detention Facility Comment [facility] [address] Household Members none Independent with ADL's No Is patient alert and oriented? No Needs Assistance With Bathing,Grooming,Meal Prep, Toileting,Managing Medications ,Home Chores / Shopping Comment Patient is not oriented today, see narrative for addtl background Caregiver for Another No Comment Known to community cardiovascular or nurse Tomy Burns. APD office [place] called to assess safety of patient's two dogs, currently being [facility] Comment Michael Caballero wants to see patient in a safe living environment Barriers to Discharge Yes Comment Patient has been evicted from her apartment at [facility]. Eviction notice came 2 mo because patient stopped paying rent, need to confirm with Georgina, director at [facility] P [phone] Discharge Plan [facility] Referrals Initiated Other Additional Comment Pressable snf care romana completed with michael Caballero today and faxed to [facility]. In addition, speedy application faxed to [facility] requesting expedited review.
--- NOTE | 2022-08-01 15:37 | CM.DPNOTE ---
DCP Note Spoke w/ patient at bedside, introduced role. 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 Patient asks this CLINICAL EDUCATION ACADEMIC COORDINATOR when she will be able to leave and explains she came here to see her and they ended up putting me in a bed. Patient is not oriented. Patient denies SI/HI states I would never do that to my grandson This CLINICAL EDUCATION ACADEMIC COORDINATOR asks for permission to contact grandson Federico and patient agreeable. Patient explains that Federico is her grandson by blood but legally is her son as she adopted him at 6 mo and raised him so he wouldn't Met w/Federico outside of room. Federico currently living in low income housing, states he cannot care for patient and is having a difficult time supporting himself. Patient has a daughter Naz García P [phone] who lives in [place], near [place], was here 3 months ago and did nothing Federico explains patient has no one else. Patient had a home and this had been sold years ago, patient had to use approx $80,000 to pay off credit card debt and pay to move into [facility]. According to Federico, patient has no assets and lives off of approx $2,600 in social security and has $1,000 in checking. Spouse many years ago at [facility] Patient has not been able to pay her rent at [facility] for months and has received an eviction notice Federico visits sporadically, states he feels helpless, states he would like to see his mom cared for somewhere. States he has called SNFs and ALFs in town for a year but has been told that patient needs to pay privately. Discussed SNF vs memory care/fdc care and explained [facility] does not cover assisted care. Completed EMILIA application w/Federico and faxed that to [facility] w/zenaida romana request to [facility] Placed call to Officer Rk cell P [phone] updated on patient staying in the ER this evening. Officer Rk has patient's dogs being held at the [facility] while next steps are determined for patient Placed call to dtr Naz P [phone] who states she cannot afford to come up to assist her mother. Dtr admits she use to speak with her mom more often and hasn't lately, states during her visit 3 mo ago that wasn't my mom this CLINICAL EDUCATION ACADEMIC COORDINATOR unable to glean why dtr made no attempt during this visit to assist patient, dtr not completely forthcoming with information, dtr denies the ability to fund any care for her mom but makes herself available by phone as needed. It seems, per officer Rk w/ALESSANDRA, that Federico García is DPOA and ppk can be gotten from [facility] coal washer tender Tomy Burns or Georgina at [facility] (who return Thursday). Apparently, patient has not been to a doctor's visit for many years. At this time, there has been no placement attempted for this patient as she does not have EMILIA, has no medical or skillable needs at this time and cannot pay privately. Updated Dr Barnett. CLINICAL EDUCATION ACADEMIC COORDINATOR team following closely for coordination of safe DCplan for this 81 yo female, not currently A+O, needing placement. Per son Federico, patient at baseline cognition, has been pleasantly demented w/some paranoia for at least 6 months MACARENA Raya
[2022-08-01] MEDS: QUETIAPINE 25 MG TABLET PO (20:05)
--- NOTE | 2022-08-02 00:43 | PC.NURSE ---
Patient appears to be resting comfortably in bed. Patient earlier on this RN's shift had made multiple attempts to enter other patients rooms and wanting to leave department. Patient appears to be confused about place and situation when speaking to her.
--- NOTE | 2022-08-02 08:14 | CM.DPNOTE ---
DCP Note Received msg from [facility]; they received patient's Printi romana request but cannot process until the [employer] LTC application is attached. Faxed LTC romana yesterday to [facility], will fax now to [facility] w/speedy romana attached. [facility] rep said application will be processed within 24hrs once both are received JW
--- NOTE | 2022-08-02 10:05 | P.HP_ITS ---
History of Present Illness History of Present Illness Chief complaint: erika, failure to thrive Narrative: 81-year-old female with hypertension, hyperlipidemia, hypothyroidism, osteoarthritis, allergic rhinitis, anxiety disorder, asthma, and paroxysmal SVT who also likely has undiagnosed Alzheimer's dementia who was brought in to the emergency department with inability to care for herself. According to the shauna rds, patient lives at [facility]. She previously had a caregiver but subsequently fired them. She lives alone with 2 dogs. Recently, animal welfare was called out to her home due to concerns about her 2 dogs not being adequately cared for. They noted feces and urine on the floor with significant carpet staining. Community upper tier was contacted and subsequently came out to evaluate the patient. She underwent 2 separate visits. Both time she denied any needs. She underwent BIMS assessment on both occasions with scores of 9 and 11 respectively, both of which are consistent with moderate cognitive impairment. The facility had reported episodes of her leaving the stove on. They turned the brake graft to this toe. More recently, she has been flushing briefs and dog feces down the toilet which has led to the toilet becoming clogged. She is now reportedly been evicted from the facility. She was brought to the emergency department via EMS last evening due to concerns about her inability to care for herself. Patient had received an eviction notice due to her living conditions. EMS reported the apartment she lived in his covered in urine and feces. She was noted have stable vital signs. Laboratories revealed mild normocytic anemia with a hemoglobin of 11.6. Normal white blood cell count. Normal platelet count. Chemistry panel was within normal limits. LFTs and cardiac enzymes were within normal limits. UA did reveal positive nitrites, 3+ leukocyte esterase, 5-10 white cells per high-power field, and many bacteria. Patient was given IV Rocephin. Urine was sent for culture. She would a dose of Seroquel overnight which she reports greatly helped her sleep. I am told that the patient has no resources, no disposition plan, and family is not able to provide assistance. Admission was recommended. Patient reports she is feeling fairly well after getting a good night's sleep. She denies any ill symptoms specifically no fevers or chills. She ate a good breakfast. Her main complaint is feeling chilly in the emergency department. Patient History Surgical History (Updated 11/03/17 @ 06:15 by Conversion Provider) History of hip replacement Status post delivery Status post hysterectomy Comment: Past medical history: Hypertension hyperlipidemia cystocele, chronic paroxysmal SVT insomnia reported hypothyroidism (not medicated) Osteoarthritis status post right hip replacement Anxiety disorder Asthma Allergic rhinitis Surgical history: section Hysterectomy Knee replacement Family history: She reports only a history of osteoarthritis in her father Social history: She reports that her is . She tells me she lives with Fidencio and describes him as her boyfriend. She also reports her grandson sometimes lives with them. She states she adopted her grandson and so refers to him as her son. 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 Lifelong nonsmoker. Occasional alcohol. Family & Social History Social History: household members none Prior Living Arrangements [facility] Facility Safety & Behavioral: Feels Safe in Current Yes Environment Been Physically Hurt or No Threatened By a Person Tobacco & Substance use: Smoking Status Smoker, status unknown alcohol intake current alcohol intake frequency 3 or more drinks per day Substance Use Type does not use Meds Home Medications and Allergies Home Medications Medication Instructions Recorded Confirmed Type acetaminophen 500 mg tablet 1,000 mg PO BID ##0 07/07/17 03/09/18 History (Tylenol Extra Strength) digoxin 250 mcg (0.25 mg) tablet 0.25 mg PO QDAY ##0 07/07/17 03/09/18 History (Lanoxin) diltiazem HCl 240 mg 240 mg PO QDAY ##0 07/20/17 03/09/18 History tablet,extended release 24 hr (Cardizem LA) docusate sodium 100 mg capsule 100 mg PO QDAY ##0 07/20/17 03/09/18 History (Colace) zolpidem 6.25 mg tablet,extended 6.25 mg PO HS ##0 07/20/17 03/09/18 History release,multiphase (Ambien CR) aspirin 81 mg tablet,delayed 81 mg PO BID #60 tabs 07/21/17 03/09/18 Rx release hydrocodone 5 mg-acetaminophen 325 1 tab PO Q4HP PRN #60 tabs 07/22/17 03/09/18 Rx mg tablet ([place]) rosuvastatin 20 mg tablet 20 mg PO DAILY 12/24/17 03/09/18 History nitrofurantoin 100 mg PO BID #20 caps 03/14/18 Rx monohydrate/macrocrystals 100 mg capsule (Macrobid) Allergies Allergy/AdvReac Type Severity Reaction Status Date / Time Sulfa (Sulfonamide Allergy Severe NAUSEA, Verified 11/07/21 10:31 Antibiotics) VAGINAL [SULFA (SULFONAMIDE ITCHING ANTIBIOTICS)] oxycodone [OXYCODONE] Allergy Unknown Verified 11/07/21 10:31 codeine [CODEINE] AdvReac Intermediate NAUSEA Verified 11/07/21 10:31 Review of Systems Review of Systems Narrative: Difficult to obtain secondary to her impaired cognition Exam Vital Signs (past 8 hours): Oxygen Delivery Method Room Air Narrative Exam Narrative: GEN: Elderly female, pleasant and cooperative, Alert and oriented x2, no acute distress HEENT: Normocephalic, face symmetric, pupils equal round reactive to light, extraocular movements intact, sclerae anicteric, conjunctiva clear, nares patent, oropharynx reveals an intact soft and hard palate with moist mucous membranes, dentition is poor with multiple broken discolored teeth noted in the front lower jaw NECK: Supple, no lymphadenopathy, thyroid without enlargement or nodularity, carotids no bruits CHEST: Respiratory excursions symmetric, clear to auscultation bilaterally CV: Regular rate and rhythm, no murmurs, rubs, gallops, PMI nondisplaced ABD: Soft, nontender, nondistended, bowel sounds present in all 4 quadrants, no organomegaly or masses appreciated EXTR: Warm, well perfused, no clubbing/cyanosis/edema SKIN: Warm and dry, without rash NEURO: Alert and oriented x2, grossly intact, freely ambulatory PSYCH: Mood and affect is within normal limits, judgment and insight are poor Objective Labs 07/31/22 18:37 07/31/22 18:37 Assessment & Plan Assessment & Plan narrative: 1. Urinary tract infection Culture pending. She is prior history of E coli UTI several years ago. Will continue Rocephin for now. 2. At least moderate dementia Will have OT perform a slums assessment. Suspect patient requires a memory care facility placement. No behavioral disturbances noted 3. Hypertension Blood pressures are normotensive here. She was prescribed diltiazem, likely for her SVT. However, she is not adherent with medications 4. Paroxysmal SVT Previously prescribed diltiazem, digoxin, and aspirin, which raises concern for AFib. However there is nothing in her records pertaining to this. There is a reported history of SVT and old records. She is been in sinus rhythm in the emergency department 5. Normocytic anemia Elderly 11.6. No concern for bleeding. 6. Hyperlipidemia Last lipids on record were performed January of 2020. Total cholesterol was 285, triglycerides 163, LDL 185, HDL 67. [facility], but declines use. 7. Chronic insomnia Low-dose Seroquel was effective last night. This will be given nightly. Code status By default will be full code given her cognitive issues Prophylaxis Low Kandace score Disposition Admit under observation status to acute care Time Spent With Patient Critical Care time: I spent a total of [] minutes of critical care time on this patient's care today; this time is exclusive of procedural time.
[2022-08-02] MEDS: cefTRIAXone 1,000 MG in SODIUM CHLORIDE 0.9% 100 ML 200 MG IV (11:08)
[2022-08-02 11:13] VITALS: BMI 20.5
[2022-08-02 12:32] LABS: COVID19 -Nasal RAPID Negative (Negative)
[2022-08-02 12:33] LABS: Thyroid Stimulating Hormone 0.976 uIU/mL (0.47-4.68)
[2022-08-02 12:56] LABS: Folate 7.3 ng/mL (2.76-20.0); Vitamin B12 241 pg/mL (239-931)
[2022-08-02] MEDS: ACETAMINOPHEN 325 MG TABLET 650 MG PO (17:14)
[2022-08-02 20:00] VITALS: BP 124/61; PULSE 70; RESP 19; TEMP 37.1; O2SAT 96
[2022-08-02] MEDS: QUETIAPINE 25 MG TABLET PO (20:28)
[2022-08-02] MEDS: BENZOCAINE/MENTHOL 1 LOZ PKT 1 EACH PO (20:30)
[2022-08-03 07:00] VITALS: BP 139/64; PULSE 74; RESP 20; TEMP 36.3; O2SAT 97
--- NOTE | 2022-08-03 08:45 | PC.NURSE ---
pt up in chair for BF pleasantly confused to situation, time-knows self and place. no c/o chair alarmed in view room call light within reach.
[2022-08-03] MEDS: cefTRIAXone 1,000 MG in SODIUM CHLORIDE 0.9% 100 ML 200 MG IV (11:56)
[2022-08-03] MEDS: ASPIRIN EC 81 MG TABLET 162 MG PO (11:58)
[2022-08-03] MEDS: ACETAMINOPHEN 325 MG TABLET 650 MG PO (11:58)
--- NOTE | 2022-08-03 13:23 | CM.DPNOTE ---
Discharge Planning Note: Patient known to me from several years ago when she was active in community. Unsure if she recognizes me but we talked about our past interactions and she was apparently tracking. She talked about her and her loss of assets. She has been pleasantly confused with staff according to notes, has some orientation. This DCP updated her regarding her speedy Medicaid/[employer] rom[employer] and that we are working on finding her a place to live and be discharged to. She asked why can't I go to my place? This DCP let her know that she was evicted from [facility] and she was surprised and asked why. See CM Stacie's and Merly's extensive notes about her dirty and unsafe living conditions and her 2 dogs. She said that her son Federico did not tell her about this. Placed call to son Federico and no voicemail available. Plan: Tomorrow, Thursday, follow up on Medicaid rom[place]. Start searching for memory care/AFHs. Roopa Parra RN/DCP
--- NOTE | 2022-08-03 16:10 | PM.PN.1 ---
Subjective Subjective Interval history: 81-year-old female with hypertension, hyperlipidemia, hypothyroidism, osteoarthritis, allergic rhinitis, anxiety disorder, asthma, and paroxysmal SVT who also likely has undiagnosed Alzheimer's dementia who was brought in to the emergency department with inability to care for herself and having been evicted from her senior independent living facility due to the living conditions within her apartment. Patient was found to have evidence for UTI in the emergency department. Unfortunately, she has very little in the way of resources and will require placement Patient states that she is feeling fairly well. She was very cold in the emergency department and reports she is feeling much warmer now. She states it was difficult to sleep due to the noise on the unit. No other complaints. ? Exam Vital Signs (past 8 hours): Oxygen Delivery Method Room Air Oxygen Flow Rate 0 Narrative Exam Narrative: GEN: Alert and oriented x 2, NAD HEENT:NC, Face symmetric CHEST: Respiratory excursions symmetric, CTAB CV: RRR, no M/R/G ABD: Soft, NT/ND, BT present in all 4 quadrants, no organomegaly or masses EXTR: warm, well perfused, no C/C/E SKIN: warm and dry, no rash NEURO: Alert and oriented x 2, nonfocal Objective Labs 07/31/22 18:37 07/31/22 18:37 [facility] Surgical History (Updated 11/03/17 @ 06:15 by Conversion Provider) History of hip replacement Status post delivery Status post hysterectomy Social History marital status: household members: none lives independently: Yes caregiver/support person: No housing: house Smoking Status: Former smoker second hand exposure: No alcohol intake: current substance use type: does not use Assessment & Plan Assessment & Plan narrative: 1. Urinary tract infection Culture pending.? She has prior history of E coli UTI several years ago.? Will continue Rocephin for now. Preliminary culture results revealed greater than 100,000 colonies of 1 Gram-negative bacilli and [id number] colonies of a 2nd Gram-negative bacilli 2. At least moderate dementia Will have OT perform a slums assessment.? Suspect patient requires a memory care facility placement.? No behavioral disturbances noted 3. Hypertension Blood pressures are normotensive here.? She was prescribed diltiazem, likely for her SVT.? However, she is not adherent with medications. At this time there is no indication for treating blood pressure. 4. Paroxysmal SVT Previously prescribed diltiazem, digoxin, and aspirin, which raises concern for AFib.? However there is nothing in her records pertaining to this.? There is a reported history of SVT and old records.? She is been in sinus rhythm in the emergency department. Await medication reconciliation if possible 5. Normocytic anemia Hemoglobin was 11.6 in the emergency department.? No concern for bleeding. 6. Hyperlipidemia Last lipids on record were performed January of 2020.? Total cholesterol was 285, triglycerides 163, LDL 185, HDL 67.? She was previously prescribed statin therapy, but declines use. 7.? Chronic insomnia Continue low-dose Seroquel which has been effective when she was in the emergency department Code status By default will be full code given her cognitive issues Prophylaxis Low Kandace score Disposition Continue observation status. Care management working on discharge options. They suspect she will require an adult family home. Time Spent With Patient Critical Care time: I spent a total of [] minutes of critical care time on this patient's care today; this time is exclusive of procedural time. Quality VTE Deep Vein Thrombosis/Pulmonary Embolism Present on Admission: No
[2022-08-03 19:00] VITALS: BP 128/51; PULSE 66; RESP 18; TEMP 37.1; O2SAT 98
[2022-08-03] MEDS: QUETIAPINE 25 MG TABLET PO (21:01)
--- NOTE | 2022-08-04 07:47 | P.PN_ITS ---
Subjective Subjective Date Patient Seen: 08/04/22 Interval history: Patient was one day off of the correct day of week and did not know the month, thought the year was 2019. SLUMS per OT was 07/04 today indicating dementia. Exam Vital Signs (past 8 hours): Oxygen Delivery Method Room Air Oxygen Flow Rate 0 Narrative Exam Narrative: GEN: Alert and oriented x 2, NAD HEENT:NC, Face symmetric CHEST: Respiratory excursions symmetric, CTAB CV: RRR, no M/R/G ABD: Soft, NT/ND, BT present in all 4 quadrants, no organomegaly or masses EXTR: warm, well perfused, no C/C/E SKIN: warm and dry, no rash NEURO: Alert and oriented x 2, nonfocal Objective Labs 07/31/22 18:37 07/31/22 18:37 [facility] Surgical History (Updated 11/03/17 @ 06:15 by Conversion Provider) History of hip replacement Status post delivery Status post hysterectomy Social History marital status: household members: none lives independently: Yes caregiver/support person: No housing: house Smoking Status: Former smoker second hand exposure: No alcohol intake: current substance use type: does not use Assessment & Plan Assessment & Plan narrative: 1. Urinary tract infection Culture with E. coli.? She has prior history of E coli UTI several years ago.? Continue Rocephin x3 days. 2. Moderate dementia SLUMS 07/04 on 08/04.? Suspect patient requires a memory care facility placement.? No behavioral disturbances noted. 3. Hypertension Blood pressures are normotensive here.? She was prescribed diltiazem, likely for her SVT.? However, she is not adherent with medications. At this time there is no indication for treating blood pressure. 4. Paroxysmal SVT Previously prescribed diltiazem, digoxin, and aspirin, which raises concern for AFib.? However there is nothing in her records pertaining to this.? There is a reported history of SVT and old records.? She is been in sinus rhythm in the emergency department. Await medication reconciliation if possible 5. Normocytic anemia Hemoglobin was 11.6 in the emergency department.? No concern for bleeding. 6. Hyperlipidemia Last lipids on record were performed January of 2020.? Total cholesterol was 285, triglycerides 163, LDL 185, HDL 67.? She was previously prescribed statin therapy, but declines use. 7.? Chronic insomnia Continue low-dose Seroquel which has been effective when she was in the emergency department Code status By default will be full code given her cognitive issues Prophylaxis Low Kandace score Disposition Continue observation status. Care management working on discharge options. They suspect she will require an adult family home. Time Spent With Patient Critical Care time: I spent a total of [] minutes of critical care time on this patient's care today; this time is exclusive of procedural time. Quality VTE Deep Vein Thrombosis/Pulmonary Embolism Present on Admission: No
[2022-08-04 08:00] VITALS: BP 134/68; PULSE 67; RESP 17; TEMP 36.2; O2SAT 97
[2022-08-04] MEDS: BENZOCAINE/MENTHOL 1 LOZ PKT 1 EACH PO ×2 (09:15→21:35)
[2022-08-04] MEDS: ASPIRIN EC 81 MG TABLET 162 MG PO (09:15)
[2022-08-04 11:00] VITALS: BP 163/69; PULSE 77; RESP 17; TEMP 36.8; O2SAT 98
[2022-08-04] MEDS: cefTRIAXone 1,000 MG in SODIUM CHLORIDE 0.9% 100 ML 200 MG IV (11:56)
--- NOTE | 2022-08-04 12:29 | OT.IP.EVAL ---
Surgical History History of hip replacement Status post delivery Status post hysterectomy Occupational Therapy Inpatient Evaluation/Re-Eval M1 PT/OT-IP Prior Functional Status Start: 08/04/22 12:31 Freq: NEEDED Status: Active Protocol: Document 08/04/22 12:32 CGR (Rec: 08/04/22 12:55 CGR [id number]) Medical Review Prior Functional Status Medical History Reviewed Yes Communication Pt is an appropriate verbal communicator. Mobility and Gait Pt states that she ambulates at baseline without AD. Activities of Daily Living and IADL's Pt states that she is IND in all ADLs. Prior Functional Level (Other details) Per notes, pt is has just been evicted from [facility]/t poor living conditions, flushing breifs, and inability to care for herself. Social History Household Members none Living Arrangements Homeless Additional Social History Comment information not gathered as pt has just been evicted M2 OT-IP Current Condition Start: 08/04/22 12:31 Freq: Status: Active Protocol: Document 08/04/22 12:32 CGR (Rec: 08/04/22 12:55 CGR [id number]) Occupational Therapy Current Condition Current Condition Evaluation Date 08/04/22 Treatment Diagnosis inability to care for self, decline in cognition Diagnosis Onset Date 08/02/22 M3 OT- IP Subjective and Pain Start: 08/04/22 12:31 Freq: Status: Active Protocol: Document 08/04/22 12:32 CGR (Rec: 08/04/22 12:55 CGR [id number]) OT- Subjective Occupational Therapy Visit Type Type Initial Evaluation Visit Start Time 12:02 Visit Stop Time 12:29 Total Visit Minutes 28 Notes Pt agreeable to therapy services. Occupational Therapy Visit Comments Patient Comments Pt states I can't use a walker, it would drive me crazy OT Pain Assessment Pain When Pain Assessed During Mobility Pain Present Pain Present Denied Pain M4 OT- IP ADL's Start: 08/04/22 12:31 Freq: Status: Active Protocol: Document 08/04/22 12:32 CGR (Rec: 08/04/22 12:55 CGR [id number]) OT QMK-Nzux-Shirlan General Evaluation Self-Feeding Ability Independent Comments OT Self-Feeding Comments Pt set up for lunch at end of session by placing tray in front of her. Pt was able to open containers and use utensils to bring food to mouth. OT ADL-Grooming General Evaluation Grooming Ability Standby Assistance Areas Needing Assistance Combing/Brushing Hair,Face Washing Comments OT Grooming Comments standing at sink OT ADL-Oral Care General Eval Oral Care Ability Standby Assistance Areas of Assistance Brushing Teeth Comments Oral Care Comments standing at sink OT ADL-Dressing General Eval Lower Body Dressing Ability Standby Assistance Areas Needing Assistance Socks Comments OT Dressing Comments pt was able to don and doff socks with extra time. OT ADL-Toileting General Evaluation Toileting Ability Standby Assistance Comments OT Toileting Comments simulated toileting while seated on the toilet. OT ADL-Bathing Comments OT Bathing Comments not performed M5 OT- IP IADL's Start: 08/04/22 12:31 Freq: Status: Active Protocol: Document 08/04/22 12:32 CGR (Rec: 08/04/22 12:55 CGR [id number]) OT-Instrumental Activities of Daily Living Deficits IADL Deficits Identified Deficits Home Safety Awareness Awareness of Need for Assistance at Home Decreased Awareness Ability to Problem Solve Emergency Unable to Problem Solve Situations Medication Management Medication Management Comments Concerns regarding pt's ability to perform safely Money Management Money Management Comments Concerns regarding pt's ability to perform safely Meal Preparation Meal Preparation Comments Concerns regarding pt's ability to perform safely Frame Catcher Frame Catcher Comments Concerns regarding pt's ability to perform safely Driving Driving Comments Concerns regarding pt's ability to perform safely M6 OT- IP Functional Cognition Start: 08/04/22 12:31 Freq: Status: Active Protocol: Document 08/04/22 12:32 CGR (Rec: 08/04/22 12:55 CGR [id number]) Cognitive Factors Limiting Selfcare Function Cognitive Ability Level of Alertness Alert Patient Orientation Name Attention Span Ability Capable of Focused Attention, Capable of Sustained Attention Ability to Follow Commands Able to Follow One Step Commands with Increased Time, Able to Follow One Step Commands with Repetition Cognitive Tests SLUMS Pt participated in SLUMS. SLUMS form will be scanned into pt's chart. She scored 12/30 indicating that she is well into the dementia range per the SLUMS scoring. Cognitive Comments Cognitive Assessment Comments Pt's score of 12/30 indicates that she is experiencing dementia. OT- Vision and Hearing OT- Hearing Assessment OT- Hearing Assessment WFL OT- Vision Assessment Visual Acuity Glasses All The Time Visual Attentiveness WFL Occular Pursuits WFL Vision Assessment Comments Pt without smooth pursuits but is able to perform visual scanning. M7 OT- IP Mobility and Balance Start: 08/04/22 12:31 Freq: Status: Active Protocol: Document 08/04/22 12:32 CGR (Rec: 08/04/22 12:55 CGR [id number]) OT- Bed Mobility Assessment Supine to Sit Supine to Sit Assist Independent Scooting Scooting to Edge of Bed Independent OT-Transfer Assessment Sit to and From Stand Sit to and from Stand Contact Guard Assistance Transfers Transfer Ability Contact Guard Assistance Technique Transfer Destination Bed,Chair,Toilet Transfer Technique Stand Step Pivot Devices Transfer Assistive Devices Gait Belt Comments Mobility Comments Pt declined use of walker and uses furniture to ambulate around the room. OT- Gait Assessment Gait Gait Assistance Required: Contact Guard Assist Assistive Devices Assistive Device Gait Belt OT- Balance Assessment Sitting Balance and Reactions Static Sitting Balance Ability Normal Dynamic Sitting Balance Ability Good M8 OT- IP Objective Assessments Start: 08/04/22 12:31 Freq: Status: Active Protocol: Document 08/04/22 12:32 CGR (Rec: 08/04/22 12:55 CGR [id number]) OT Gross Range of Motion Upper Extremity Range of Motion Assessment Within Functional Limits OT Strength Upper Extremity Strength Assessment Within Functional Limits Comments Strength Comments 4/5 throughout OT- Coordination Assessment Upper Extremity Finger to Nose Test Within Functional Limits Finger Tapping Test Within Functional Limits OT-Muscle Tone Assessment Muscle Tone WNL Yes OT Sensation Assessment Edema Edema Absent M9 OT- IP Assessment and Plan Start: 08/04/22 12:31 Freq: Status: Active Protocol: Document 08/04/22 12:32 CGR (Rec: 08/04/22 12:55 CGR [id number]) OT Summary Assessment and Plan Potential Rehabilitation Potential Fair Analytic Complexity at Evaluation Low Summary OT Impairments Functional Cognition Progress Towards Goals Slow Progress due to Cognition Assessment Summary Pt presents as a low complexity evaluation s/p admit for inability to care for herself. Pt is able to ambulate in the room with furniture surfing and CGA and perform ADLs with verbal cues. Pt's SLUMS indicates that she is suffering from dementia that is likely impacting her ability to care for herself. Pt will benefit from placement somewhere that she will get some assist and have the option for increased assist. Goals Dressing Goal Independent Toileting Goal Independent Bathing Goal Independent Toilet Transfer Goal Independent Shower Transfer Goal Independent Days to Meet Goals 2 Frequency of Treatment Frequency Of Treatment Once a Day Treatment Plan OT Treatment Plan ADL Training,Functional Cognition Training,Patient/ Family Education,Discharge Planning Other Treatment Recommendations and Next shower, cog training Treatment Focus Discharge Recommendations OT Discharge Recommendations LTAC Transportation Needs at Discharge Private Vehicle
[2022-08-04] MEDS: diphenhydrAMINE 25 MG TABLET PO ×2 (12:36→19:44)
--- NOTE | 2022-08-04 14:13 | CM.DPNOTE ---
Discharge Planning Note: Alisson at [facility] called and let me know that her Medicaid romana case is assigned to Jennifer Manley. Her number is [phone]. This DCP left her a message for an update and as of 2:20 have not heard back from her. Patient desires to stay in [place] as this is where she has lived and has friends. Also her son Federico lives here and this is her only family. Spoke with Parth CLARKE (Eliecer) ([phone]) in [facility] and they do have Medicaid beds. Once the insurance comes through, they can come and interview/assess her. Spoke with [facility] and they could possibly take but are wondering what rate is. Called [facility] ([facility], per Sofiya Be), and [facility]). Spoke with Fallon CLARKE--no Medicaid beds. Plan: Follow up with Jennifer Manley then contact Parth to come for assessment. Stay in touch with the two other [facility] as backup. Roopa Parra RN/DCP
[2022-08-04 19:55] VITALS: BP 163/78; PULSE 78; RESP 18; TEMP 36.7; O2SAT 99
[2022-08-04] MEDS: SODIUM CHLORIDE 0.9% FLUSH 10 ML IV (20:06)
[2022-08-04] MEDS: QUETIAPINE 25 MG TABLET PO (20:06)
--- NOTE | 2022-08-04 22:02 | PC.NURSE ---
Patient is oriented to self, birthdate, age and place. Breath sounds CTA with RA sat of 99%. HRR w/elevated BP of 163/78. Denied nausea. BT present and abdomen is soft. Denied dysuria, frequency or urgency; voids on toilet but is also sometimes incontinent of urine so is wearing a brief. Is able to move self in bed. Gait not assessed at time of assessment but reportedly is up with SBA and has an abnormal gait. At start of shift was complaining of itching on back and bilateral LE and had bleeding scratches on bilateral anterior LE; was medicated with Benadryl and currently states the itching has decreased. Denied pain. SCD's not applied as patient is impulsive and crawls out of bed so SCD's would increase fall risk. Fall risk score is high and bed alarm is activated.
[2022-08-05 07:00] VITALS: BP 131/69; PULSE 67; RESP 16; TEMP 36.1; O2SAT 100
--- NOTE | 2022-08-05 07:14 | P.PN_ITS ---
Subjective Subjective Date Patient Seen: 08/05/22 Interval history: Patient annoyed that the TV isn't working. Says she is bored. But otherwise no complaints. Exam Vital Signs (past 8 hours): Oxygen Delivery Method Room Air Oxygen Flow Rate 0 Narrative Exam Narrative: GEN: Alert and oriented x 2, NAD HEENT:NC, Face symmetric CHEST: Respiratory excursions symmetric, CTAB CV: RRR, no M/R/G ABD: Soft, NT/ND, BT present in all 4 quadrants, no organomegaly or masses EXTR: warm, well perfused, no C/C/E SKIN: warm and dry, no rash NEURO: Alert and oriented x 2, nonfocal Objective Labs 07/31/22 18:37 07/31/22 18:37 [facility] Surgical History (Updated 11/03/17 @ 06:15 by Conversion Provider) History of hip replacement Status post delivery Status post hysterectomy Social History marital status: household members: none lives independently: Yes caregiver/support person: No housing: house Smoking Status: Former smoker second hand exposure: No alcohol intake: current substance use type: does not use Assessment & Plan Assessment & Plan narrative: 1. Urinary tract infection Culture with E. coli.? She has prior history of E coli UTI several years ago.? Continue Rocephin x3 days. 2. Moderate dementia SLUMS 07/04 on 08/04.? Suspect patient requires a memory care facility placem ent.? No behavioral disturbances noted. 3. Hypertension Blood pressures are normotensive here.? She was prescribed diltiazem, likely for her SVT.? However, she is not adherent with medications. At this time there is no indication for treating blood pressure. 4. Paroxysmal SVT Previously prescribed diltiazem, digoxin, and aspirin, which raises concern for AFib.? However there is nothing in her records pertaining to this.? There is a reported history of SVT and old records.? She is been in sinus rhythm in the emergency department. Await medication reconciliation if possible 5. Normocytic anemia Hemoglobin was 11.6 in the emergency department.? No concern for bleeding. 6. Hyperlipidemia Last lipids on record were performed January of 2020.? Total cholesterol was 285, triglycerides 163, LDL 185, HDL 67.? She was previously prescribed statin therapy, but declines use. 7.? Chronic insomnia Continue nightly Seroquel which has been effective when she was in the emergency department. Code status By default will be full code given her cognitive issues Prophylaxis Low Kandace score Disposition Continue observation status. Care management working on discharge options. They suspect she will require an adult family home. Time Spent With Patient Critical Care time: I spent a total of [] minutes of critical care time on this patient's care today; this time is exclusive of procedural time. Quality VTE Deep Vein Thrombosis/Pulmonary Embolism Present on Admission: No
[2022-08-05] MEDS: SODIUM CHLORIDE 0.9% FLUSH 10 ML IV (08:16)
[2022-08-05] MEDS: ASPIRIN EC 81 MG TABLET 162 MG PO (08:16)
--- NOTE | 2022-08-05 10:38 | OT.IP.TRT ---
Occupational Therapy Treatment Note M2 OT-IP Current Condition Start: 08/04/22 12:31 Freq: Status: Active Protocol: Document 08/04/22 12:32 CGR (Rec: 08/04/22 12:55 CGR [id number]) Occupational Therapy Current Condition Current Condition Evaluation Date 08/04/22 Treatment Diagnosis inability to care for self, decline in cognition Diagnosis Onset Date 08/02/22 M3 OT- IP Subjective and Pain Start: 08/04/22 12:31 Freq: Status: Active Protocol: Document 08/05/22 12:21 CGR (Rec: 08/05/22 12:33 CGR [id number]) OT- Subjective Occupational Therapy Visit Type Type Progress Note Visit Start Time 10:13 Visit Stop Time 10:38 Total Visit Minutes 25 Notes Pt agreeable to shower Occupational Therapy Visit Comments Patient Comments I am so itchy. OT Pain Assessment Pain When Pain Assessed At Rest Pain Present Pain Present Denied Pain M4 OT- IP ADL's Start: 08/04/22 12:31 Freq: Status: Active Protocol: Document 08/05/22 12:21 CGR (Rec: 08/05/22 12:33 CGR [id number]) OT [id number] Comments OT Self-Feeding Comments not meal time OT ADL-Grooming General Evaluation Grooming Ability Standby Assistance Areas Needing Assistance Face Washing Comments OT Grooming Comments in shower, also applied lotion without assist. OT ADL-Oral Care Comments Oral Care Comments not performed OT ADL-Dressing General Eval Upper Body Dressing Ability Standby Assistance Lower Body Dressing Ability Standby Assistance Areas Needing Assistance Underpants/Brief,Socks Comments OT Dressing Comments Pt needs extra time for LB dressing. OT ADL-Toileting Comments OT Toileting Comments not performed OT ADL-Bathing Bathing Type Bathing Type Shower General Evaluation Bathing Ability Maximal Assistance Areas Needing Assistance Retrieving/Setting Up Items, Wash/Dry Upper Body,Wash/Dry Back,Wash/Dry Perineal Area, Wash/Dry Lower Extremities Comments OT Bathing Comments Pt initially agreeable to showering but once in shower pt appeared slightly fearful and declined further bathing. Pt was assisted with all aspects of bathing herself and then washed off and assisted with drying off. M5 OT- IP IADL's Start: 08/04/22 12:31 Freq: Status: Active Protocol: Document 08/04/22 12:32 CGR (Rec: 08/04/22 12:55 CGR [id number]) OT-Instrumental Activities of Daily Living Deficits IADL Deficits Identified Deficits Home Safety Awareness Awareness of Need for Assistance at Home Decreased Awareness Ability to Problem Solve Emergency Unable to Problem Solve Situations Medication Management Medication Management Comments Concerns regarding pt's ability to perform safely Money Management Money Management Comments Concerns regarding pt's ability to perform safely Meal Preparation Meal Preparation Comments Concerns regarding pt's ability to perform safely Guide Escort Guide Escort Comments Concerns regarding pt's ability to perform safely Driving Driving Comments Concerns regarding pt's ability to perform safely M6 OT- IP Functional Cognition Start: 08/04/22 12:31 Freq: Status: Active Protocol: Document 08/04/22 12:32 CGR (Rec: 08/04/22 12:55 CGR [id number]) Cognitive Factors Limiting Selfcare Function Cognitive Ability Level of Alertness Alert Patient Orientation Name Attention Span Ability Capable of Focused Attention, Capable of Sustained Attention Ability to Follow Commands Able to Follow One Step Commands with Increased Time, Able to Follow One Step Commands with Repetition Cognitive Tests SLUMS Pt participated in SLUMS. SLUMS form will be scanned into pt's chart. She scored 12/30 indicating that she is well into the dementia range per the SLUMS scoring. Cognitive Comments Cognitive Assessment Comments Pt's score of 12/30 indicates that she is experiencing dementia. OT- Vision and Hearing OT- Hearing Assessment OT- Hearing Assessment WFL OT- Vision Assessment Visual Acuity Glasses All The Time Visual Attentiveness WFL Occular Pursuits WFL Vision Assessment Comments Pt without smooth pursuits but is able to perform visual scanning. M7 OT- IP Mobility and Balance Start: 08/04/22 12:31 Freq: Status: Active Protocol: Document 08/05/22 12:21 CGR (Rec: 08/05/22 12:33 CGR [id number]) OT- Bed Mobility Assessment Supine to Sit Supine to Sit Assist Independent Sit to Supine Sit to Supine Assist Independent Scooting Scooting to Edge of Bed Independent OT-Transfer Assessment Sit to and From Stand Sit to and from Stand Contact Guard Assistance Transfers Transfer Ability Contact Guard Assistance Technique Transfer Destination Bed,Chair,Shower Stall Transfer Technique Stand Step Pivot Devices Transfer Assistive Devices Gait Belt Comments Mobility Comments Pt ambulated from bed to shower stall, then to chair for dressing and returned to bed at end of session. 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 OT- Balance Assessment Sitting Balance and Reactions Static Sitting Balance Ability Good Dynamic Sitting Balance Ability Good M8 OT- IP Objective Assessments Start: 08/04/22 12:31 Freq: Status: Active Protocol: Document 08/04/22 12:32 CGR (Rec: 08/04/22 12:55 CGR [id number]) OT Gross Range of Motion Upper Extremity Range of Motion Assessment Within Functional Limits OT Strength Upper Extremity Strength Assessment Within Functional Limits Comments Strength Comments 4/5 throughout OT- Coordination Assessment Upper Extremity Finger to Nose Test Within Functional Limits Finger Tapping Test Within Functional Limits OT-Muscle Tone Assessment Muscle Tone WNL Yes OT Sensation Assessment Edema Edema Absent M9 OT- IP Assessment and Plan Start: 08/04/22 12:31 Freq: Status: Active Protocol: Document 08/05/22 12:21 CGR (Rec: 08/05/22 12:33 CGR [id number]) OT Summary Assessment and Plan Potential Rehabilitation Potential Fair Analytic Complexity at Evaluation Low Summary OT Impairments Functional Cognition Progress Towards Goals Slow Progress due to Cognition Assessment Summary Pt presents as a low complexity evaluation s/p admit for inability to care for herself. Pt is able to ambulate in the room with furniture surfing and CGA and perform ADLs with verbal cues. Pt had difficulty with bathing today, which is not unusual for individuals with dementia (as her SLUMS score from 1/30 indicates). Pt needed max a for bathing. Pt will be most appropriate for a memory care unit upon discharge. Goals Dressing Goal Independent Toileting Goal Independent Bathing Goal Independent Toilet Transfer Goal Independent Shower Transfer Goal Independent Days to Meet Goals 2 Frequency of Treatment Frequency Of Treatment Once a Day Treatment Plan OT Treatment Plan ADL Training,Functional Cognition Training,Patient/ Family Education,Discharge Planning Other Treatment Recommendations and Next shower, cog training Treatment Focus Discharge Recommendations OT Discharge Recommendations LTAC Transportation Needs at Discharge Private Vehicle
[2022-08-05] MEDS: diphenhydrAMINE 25 MG TABLET PO (11:24)
--- NOTE | 2022-08-05 13:15 | DIET.CONS ---
Dietary Consultation Note Admission Date: 08/02/2022 09:05 Assessment: 81y F admitted for adult failure to thrive screened by RD for low BMI (20.5) and low MNA score (8). Pt recently evicted from independent half-way facility r/t risk posed to other residents and pt regarding hygiene and fire safety. Pt SLUMS 07/04 indicating dementia. Chart review shows pt is 20% below her baseline weight in 2018. Per notes from grandson, pt has been declining over the last few years. Pt consuming 100% POs while hospitalized in structured environment with structured meals. OT reports to RD pt with noticeable saggy skin along abdomen and flanks indicating pt had lost significant weight. Pt with moderately hollowed temples. Ht: 162.56 cm Wt: 54.431 kg BMI: 20.5 (severe for age) UBW: 68kg Last BM: 08/02/22 (08/02/22 11:13) MNA: 8 Lee Score: 18 Diet: 08/01/22 Breakfast General (Regular) Diet Diet Modifications: Nutrition Percent Meal Consumed 100% 08/05/22 09:07 Percent Meal Consumed 100% 08/04/22 23:14 Percent Meal Consumed 75% 08/04/22 18:13 Percent Meal Consumed 75% 08/04/22 11:00 Percent Meal Consumed 100% 08/03/22 18:36 Labs: RBC 4.11 X10^6/uL (4.0-5.2) 07/31/22 18:37 Hgb 11.6 g/dL (12.0-16.0) L 07/31/22 18:37 Hct 35.7 % (36-46) L 07/31/22 18:37 Creatinine 0.69 mg/dL (0.52-1.04) 07/31/22 18:37 Lactate 1.3 mmol/L (0.7-2.1) 07/31/22 18:37 Nutrition Diagnosis: Acute on Chronic Protein Calorie Malnutrition r/t psychological causes (dementia) aeb pt BMI 20.5 (severe for age), pt MNA 8 (malnourished), SLUMS 07/04, pt homeless. Interventions: 1. Pt would benefit from structured memory care environment which provides structured meal setting and prep of all meals. Pt with low situational awareness increasing risk of fire danger and foodborne illness. Pt consuming 100% POs in hospital setting indicating excellent candidate for structured living environment to support nutrition status. Electronically Signed by: Kiera Kingsley 08/05/22 13:15 Clinical Dietitian [address] [id number]
[2022-08-05] MEDS: BENZOCAINE/MENTHOL 1 LOZ PKT 1 EACH PO ×2 (14:26→18:55)
--- NOTE | 2022-08-05 15:00 | CM.DPNOTE ---
Addendum entered by MACARENA Avery 08/05/22 15:14: ADD: [facility] psychosocial rehabilitation counselor assigned is Dallas Roberts P [phone] JOE Original Note: DCP Note According to conversation w/Tomy Burns, formerly [facility] later [facility] senior process control tech, patient's DPOA ppk is in the chart. Found now which places friend Marco as primary DPOA (Marco no longer in patient's life) and son Federico as back up DPOA Tomy relays that Georgina at [facility] hoping to speak with son Federico soon about how to handle patient's belongings (?) Tomy will attempt contact with Federico today In addition, patient's two dogs are being looked after by the [facility] and will be held until next steps in patient's care are determined. It is unlikely that patient will be able to safely care for pets but will attempt to keep [facility] updated re patient's whereabouts. [facility] has medical terminologist care [facility] beds available, REN H[place], kindly agreed to fax referral to [facility] for review. [facility] psychosocial rehabilitation counselor Zabrina Manley P [phone], [place] office, is out today but can be reached Wed - need assessment for designation of rate MACARENA Raya
[2022-08-05 19:00] VITALS: BP 179/78; PULSE 71; RESP 16; TEMP 36.7; O2SAT 99
[2022-08-05] MEDS: ACETAMINOPHEN 325 MG TABLET 650 MG PO (21:06)
[2022-08-05] MEDS: QUETIAPINE 25 MG TABLET PO (21:07)
--- NOTE | 2022-08-06 07:14 | P.PN_ITS ---
Subjective Subjective Date Patient Seen: 08/06/22 Interval history: Patient has no complaints. C Exam Vital Signs (past 8 hours): Oxygen Delivery Method Room Air Oxygen Flow Rate 0 Narrative Exam Narrative: GEN: Alert and oriented x 2, NAD HEENT:NC, Face symmetric CHEST: Respiratory excursions symmetric, CTAB CV: RRR, no M/R/G ABD: Soft, NT/ND, BT present in all 4 quadrants, no organomegaly or masses EXTR: warm, well perfused, no C/C/E SKIN: warm and dry, no rash NEURO: Alert and oriented x 2, nonfocal Objective Labs 07/31/22 18:37 07/31/22 18:37 [facility] Surgical History (Updated 11/03/17 @ 06:15 by Conversion Provider) History of hip replacement Status post delivery Status post hysterectomy Social History marital status: household members: none lives independently: Yes caregiver/support person: No housing: house Smoking Status: Former smoker second hand exposure: No alcohol intake: current substance use type: does not use Assessment & Plan Assessment & Plan narrative: 1. Urinary tract infection, treated Culture with E. coli.? She has prior history of E coli UTI several years ago.? Completed Rocephin x3 days. 2. Moderate dementia SLUMS 07/04 on 08/04.? Suspect patient requires a memory care facility placement.? No behavioral disturbances noted. 3. Hypertension Blood pressures are normotensive here.? She was prescribed diltiazem, likely for her SVT.? However, she is not adherent with medications. At this time there is no indication for treating blood pressure. 4. Paroxysmal SVT Previously prescribed diltiazem, digoxin, and aspirin, which raises concern for AFib.? However there is nothing in her records pertaining to this.? There is a reported history of SVT and old records.? She is been in sinus rhythm in the emergency department. Await medication reconciliation if possible 5. Normocytic anemia Hemoglobin was 11.6 in the emergency department.? No concern for bleeding. 6. Hyperlipidemia Last lipids on record were performed January of 2020.? Total cholesterol was 285, triglycerides 163, LDL 185, HDL 67.? She was previously prescribed statin therapy, but declines use. 7.? Chronic insomnia Continue nightly Seroquel which has been effective when she was in the emergency department. Code status By default will be full code given her cognitive issues Prophylaxis Low Kandace score Disposition Continue observation status. Care management working on discharge options. 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 Time Spent With Patient Critical Care time: I spent a total of [] minutes of critical care time on this patient's care today; this time is exclusive of procedural time. Quality VTE Deep Vein Thrombosis/Pulmonary Embolism Present on Admission: No
[2022-08-06 08:33] VITALS: BP 149/70; PULSE 67; RESP 16; TEMP 36.2; O2SAT 97
[2022-08-06] MEDS: dilTIAZem CD 240 MG CAP PO (09:20)
[2022-08-06] MEDS: DOCUSATE 100 MG CAPSULE PO (09:20)
[2022-08-06] MEDS: ASPIRIN EC 81 MG TABLET PO (09:20)
[2022-08-06] MEDS: diphenhydrAMINE 25 MG TABLET PO (11:35)
--- NOTE | 2022-08-06 11:54 | OT.IP.TRT ---
Occupational Therapy Treatment Note M2 OT-IP Current Condition Start: 08/04/22 12:31 Freq: Status: Active Protocol: Document 08/04/22 12:32 CGR (Rec: 08/04/22 12:55 CGR [id number]) Occupational Therapy Current Condition Current Condition Evaluation Date 08/04/22 Treatment Diagnosis inability to care for self, decline in cognition Diagnosis Onset Date 08/02/22 M3 OT- IP Subjective and Pain Start: 08/04/22 12:31 Freq: Status: Active Protocol: Document 08/06/22 11:37 [facility] (Rec: 08/06/22 14:05 [facility] [id number]) OT- Subjective Occupational Therapy Visit Type Type Treatment Note Visit Start Time 11:37 Visit Stop Time 11:54 Total Visit Minutes 17 Occupational Therapy Visit Comments Patient Comments Pt not wanting to shower but agreed to use the bathroom. Patient/Caregiver Goals TO go home. OT Pain Assessment Pain When Pain Assessed At Rest Pain Present Pain Present Denied Pain M4 OT- IP ADL's Start: 08/04/22 12:31 Freq: Status: Active Protocol: Document 08/06/22 11:37 [facility] (Rec: 08/06/22 14:05 [facility] [id number]) OT [id number] Comments OT Self-Feeding Comments not meal time OT ADL-Grooming General Evaluation Grooming Ability Standby Assistance Comments OT Grooming Comments SBA while at the sink. OT ADL-Oral Care General Eval Oral Care Ability Standby Assistance Areas of Assistance Brushing Teeth OT ADL-Dressing General Eval Lower Body Dressing Ability Standby Assistance,Contact Guard Assistance Comments OT Dressing Comments Pt needing assist to get the brief over her feet from higher surfaces and able to do on her own when seated on the recliner. OT ADL-Toileting General Evaluation Toileting Ability Standby Assistance Comments OT Toileting Comments Pt able to toilet on her own and needing cues for completeness of hygiene needs. OT ADL-Bathing Comments OT Bathing Comments Pt refusing to shower. M5 OT- IP IADL's Start: 08/04/22 12:31 Freq: Status: Active Protocol: Document 08/04/22 12:32 CGR (Rec: 08/04/22 12:55 CGR [id number]) OT-Instrumental Activities of Daily Living Deficits IADL Deficits Identified Deficits Home Safety Awareness Awareness of Need for Assistance at Home Decreased Awareness Ability to Problem Solve Emergency Unable to Problem Solve Situations Medication Management Medication Management Comments Concerns regarding pt's ability to perform safely Money Management Money Management Comments Concerns regarding pt's ability to perform safely Meal Preparation Meal Preparation Comments Concerns regarding pt's ability to perform safely Professor Of Medicine Professor Of Medicine Comments Concerns regarding pt's ability to perform safely Driving Driving Comments Concerns regarding pt's ability to perform safely M6 OT- IP Functional Cognition Start: 08/04/22 12:31 Freq: Status: Active Protocol: Document 08/06/22 11:37 [facility] (Rec: 08/06/22 14:05 [facility] [id number]) Cognitive Factors Limiting Selfcare Function Cognitive Ability Level of Alertness Alert Patient Orientation Name Attention Span Ability Capable of Focused Attention, Capable of Sustained Attention Ability to Follow Commands Able to Follow One Step Commands with Increased Time, Able to Follow One Step Commands with Repetition Memory Description Short Term Impaired Safety Awareness Underestimates Need for Assistance Cognitive Comments Cognitive Assessment Comments Pt insistent that she does not need the FWW and tends to furniture cruise and is a little unsteady on her feet. Pt needing vc to wipe after changing out her wet brief. M7 OT- IP Mobility and Balance Start: 08/04/22 12:31 Freq: Status: Active Protocol: Document 08/06/22 11:37 [facility] (Rec: 08/06/22 14:05 [facility] [id number]) OT-Transfer Assessment Sit to and From Stand Sit to and from Stand Contact Guard Assistance Transfers Transfer Ability Contact Guard Assistance Technique Transfer Destination Bed,Chair,Shower Stall Transfer Technique Stand Step Pivot Devices Transfer Assistive Devices Gait Belt Comments Mobility Comments Pt needing occasional CGA for balance when walking without a device and use of the gait belt. OT- Balance Assessment Sitting Balance and Reactions Static Sitting Balance Ability Good Dynamic Sitting Balance Ability Good Standing Balance and Reactions Static Standing Balance Ability Fair Dynamic Standing Balance Ability Poor M8 OT- IP Objective Assessments Start: 08/04/22 12:31 Freq: Status: Active Protocol: Document 08/04/22 12:32 CGR (Rec: 08/04/22 12:55 CGR [id number]) OT Gross Range of Motion Upper Extremity Range of Motion Assessment Within Functional Limits OT Strength Upper Extremity Strength Assessment Within Functional Limits Comments Strength Comments 4/5 throughout OT- Coordination Assessment Upper Extremity Finger to Nose Test Within Functional Limits Finger Tapping Test Within Functional Limits OT-Muscle Tone Assessment Muscle Tone WNL Yes OT Sensation Assessment Edema Edema Absent M9 OT- IP Assessment and Plan Start: 08/04/22 12:31 Freq: Status: Active Protocol: Document 08/06/22 11:37 [facility] (Rec: 08/06/22 14:05 [facility] [id number]) OT Summary Assessment and Plan Potential Rehabilitation Potential Good Analytic Complexity at Evaluation Low Summary OT Impairments Balance,Functional Cognition, Functional Mobility,Dressing, Bathing,Toilet Transfers, Shower Transfers Progress Towards Goals Slow Progress due to Activity Tolerance,Slow Progress due to Cognition Assessment Summary Pt is somewhat unsteady on her feet and has to furniture cruise to prevent from loss of balance. Pt is able to do her ADL's but needing cues more so for completeness and safety. Pt also having difficulty with her balance, thus a times needing a little assistance with ADl needs. Pt would benefit from initial skilled rehab to maximize her level of mobility and continue to work on safety needsdue to her cognitive deficits. Pt would also benefit from memory care/ LTC afterwards Goals Dressing Goal Independent Toileting Goal Independent Bathing Goal Independent Toilet Transfer Goal Independent Shower Transfer Goal Independent Days to Meet Goals 10 Frequency of Treatment Frequency Of Treatment Once a Day Treatment Plan OT Treatment Plan ADL Training,Functional Cognition Training,Patient/ Family Education,Discharge Planning Other Treatment Recommendations and Next shower, cog training Treatment Focus Discharge Recommendations OT Discharge Recommendations SNF Rehab,LTAC Transportation Needs at Discharge Private Vehicle,Wheelchair/ Cabulance
--- NOTE | 2022-08-06 14:35 | PT.IIE ---
Surgical History History of hip replacement Status post delivery Status post hysterectomy Physical Therapy Inpatient Evaluation/Re-Eval M1 PT/OT-IP Prior Functional Status Start: 08/06/22 17:11 Freq: NEEDED Status: Active Protocol: Document 08/06/22 14:35 AB (Rec: 08/06/22 17:29 AB [id number]) Medical Review Prior Functional Status Communication able to make needs known Mobility and Gait pt stated that she is independent with all mobilities and ambulation without AD Activities of Daily Living and IADL's per OT notes: Pt states that she is IND in all ADLs. Social History Household Members none Living Arrangements Homeless Additional Social History Comment Pt was living at [facility] but just got evicted per EMR due to poor living condition. M2 PT-IP Current Condition Start: 08/06/22 17:11 Freq: NEEDED Status: Active Protocol: Document 08/06/22 14:35 AB (Rec: 08/06/22 17:29 AB [id number]) Physical Therapy Current Condition Current Condition Evaluation Date 08/06/22 Treatment Diagnosis UTI; difficulty in walking Onset Date 08/02/22 M3 PT-IP Subjective Start: 08/06/22 17:11 Freq: NEEDED Status: Active Protocol: Document 08/06/22 14:35 AB (Rec: 08/06/22 17:29 AB [email or web address]) Subjective Physical Therapy Visit Type Type Initial Evaluation Visit Start Time 14:35 Visit Stop Time 14:56 Total Visit Minutes 21 Number of LIBRARY MEDIA TECHNICIAN Visits 0 M4 PT-IP Mobility and Gait Start: 08/06/22 17:11 Freq: NEEDED Status: Active Protocol: Document 08/06/22 14:35 AB (Rec: 08/06/22 17:29 AB [email or web address]) PT-Bed Mobility Assessment Supine to Sit Supine to Sit Independent Sit to Supine Sit to Supine Independent PT-Transfer Assessment Sit to and From Stand Sit to and from Stand Standby Assistance,Use of Upper Extremities Equipment Transfer Assistive Device None,Gait Belt Orthotic/Prosthetic Devices or Brace: No Comments Mobility Comments pt stated that she is going back to [employer] where she and her grandson lives. per EMR and confirmed by director of casework, [facility] pt completed supine to sit mod I. pt refusing to use any AD. ambulated in room without AD SBA to occasionally CGA ~ 40 ft but pt tend to reach for bed/counter/wall for support. pt presents with antalgic gait . ambulated in room again and instructed pt to try not to reach anything for support and balance by herself but pt unable to continues to refuse to use an AD. pt stated that she has a bad L hip but they cannot do surgery on that hip and had a hip replacement on RLE. educated pt on safety but refused to use AD for steadiness. stated that she has stuff at her apartment that she can hold on to and does not go outside that much but stated that she is very careful when she is out side. pt adamantly refuses to use AD and stated that she tried a cane before but is a trip hazard and refuses to use any AD. educated pt on working on her standing balance for steadiness and pt stated that her balance is fine and she has not fallen at all. attempted to do standing balance training with pt but no carry over as pt directs her own care and stated that her balance if fine and does not need AD. pt went back to the bed mod I. positioned in bed. call light and table placed within reach. informed director of casework regarding pt's mobility and not agreeable to recommendations and due to this, will not have any carry over with any training provided. will d/c pt from PT . director of casework aware. Gait Assessment Gait Gait Assistance Required: Standby Assistance,Contact Guard Assist Distance (Feet) 40 Able to Maintain Weight Bearing Status Yes During Gait Assistive Devices Assistive Device None,Gait Belt Orthotic/Prosthetic Devices or Brace: No Gait Deviations General Gait Pattern Antalgic Factors Limiting Gait Function Factors Limiting Gait Function Decreased Strength,Poor Balance,Poor Safety Awareness PT-Balance Assessment Sitting Balance and Reactions Static Sitting Balance Ability Normal Dynamic Sitting Balance Ability Good Standing Balance and Reactions Static Standing Balance Ability Good Dynamic Standing Balance Ability Fair Device Used without AD M5 PT-IP Objective Assessments Start: 08/06/22 17:11 Freq: NEEDED Status: Active Protocol: Document 08/06/22 14:35 AB (Rec: 08/06/22 17:29 AB [id number]) Orientation Orientation/Cognition Level of Alertness Alert Orientation Name Language Function Ability No Deficits Noted Safety Awareness Decreased Safety Awareness Memory Description Short Term Impaired,Longterm Impaired Gross Range of Motion Lower Extremity ROM Assessment Within Functional Limits Strength Lower Extremity Strength Hip 4/5 Knee 4/5 Muscle Tone Muscle Tone WNL Yes M6 PT-IP Treatment Start: 08/06/22 17:11 Freq: NEEDED Status: Active Protocol: Document 08/06/22 14:35 AB (Rec: 08/06/22 17:29 AB [id number]) Physical Therapy Treatment Education Education Provided Safety M7 PT-IP Assessment and Plan Start: 08/06/22 17:11 Freq: NEEDED Status: Active Protocol: Document 08/06/22 14:35 AB (Rec: 08/06/22 17:29 AB [id number]) PT Summary Assessment and Plan Potential Rehabilitation Potential Poor Status of Condition at Evaluation Stable Summary Impairments Balance,Cognition,Transfers, Gait,Activity Tolerance Assessment Summary PT eval completed. Pt resistant to recommendations and carryover of any training is poor due to this. pt refused to use an AD even though educated on need and safety due to decrease standing balance. pt adamantly refused to use AD and also stated that she does not have balance problems and has not fallen at home. informed director of casework. will d /c PT. Frequency of Treatment Frequency Of Treatment Discharge Recommendations To Nursing Amount of Assist Needed 1 Person Assist Discharge Recommendations PT Discharge Recommendations Home with 26/01 Assist Available Transportation Needs at Discharge Private Vehicle,Wheelchair/ Cabulance
--- NOTE | 2022-08-06 14:35 | PT.IIE ---
Surgical History History of hip replacement Status post delivery Status post hysterectomy Physical Therapy Inpatient Evaluation/Re-Eval M1 PT/OT-IP Prior Functional Status Start: 08/06/22 17:11 Freq: NEEDED Status: Active Protocol: Document 08/06/22 14:35 AB (Rec: 08/06/22 17:29 AB [id number]) Medical Review Prior Functional Status Communication able to make needs known Mobility and Gait pt stated that she is independent with all mobilities and ambulation without AD Activities of Daily Living and IADL's per OT notes: Pt states that she is IND in all ADLs. Social History Household Members none Living Arrangements Homeless Additional Social History Comment Pt was living at [facility] but just got evicted per EMR due to poor living condition. M2 PT-IP Current Condition Start: 08/06/22 17:11 Freq: NEEDED Status: Active Protocol: Document 08/06/22 14:35 AB (Rec: 08/06/22 17:29 AB [email or web address]) Physical Therapy Current Condition Current Condition Evaluation Date 08/06/22 Treatment Diagnosis UTI; difficulty in walking Onset Date 08/02/22 M3 PT-IP Subjective Start: 08/06/22 17:11 Freq: NEEDED Status: Active Protocol: Document 08/06/22 14:35 AB (Rec: 08/06/22 17:29 AB [email or web address]) Subjective Physical Therapy Visit Type Type Initial Evaluation Visit Start Time 14:35 Visit Stop Time 14:56 Total Visit Minutes 21 Number of HEALTH POLICY ANALYST Visits 0 M4 PT-IP Mobility and Gait Start: 08/06/22 17:11 Freq: NEEDED Status: Active Protocol: Document 08/06/22 14:35 AB (Rec: 08/06/22 17:29 AB [email or web address]) PT-Bed Mobility Assessment Supine to Sit Supine to Sit Independent Sit to Supine Sit to Supine Independent PT-Transfer Assessment Sit to and From Stand Sit to and from Stand Standby Assistance,Use of Upper Extremities Equipment Transfer Assistive Device None,Gait Belt Orthotic/Prosthetic Devices or Brace: No Comments Mobility Comments pt stated that she is going back to [email or web address] where she and her grandson lives. per EMR and confirmed by vocational case manager, [facility]. pt completed supine to sit mod I. pt refusing to use any AD. ambulated in room without AD SBA to occasionally CGA ~ 40 ft but pt tend to reach for bed/counter/wall for support. pt presents with antalgic gait . ambulated in room again and instructed pt to try not to reach anything for support and balance by herself but pt unable to continues to refuse to use an AD. pt stated that she has a bad L hip but they cannot do surgery on that hip and had a hip replacement on RLE. educated pt on safety but refused to use AD for steadiness. stated that she has stuff at her apartment that she can hold on to and does not go outside that much but stated that she is very careful when she is out side. pt adamantly refuses to use AD and stated that she tried a cane before but is a trip hazard and refuses to use any AD. educated pt on working on her standing balance for steadiness and pt stated that her balance is fine and she has not fallen at all. attempted to do standing balance training with pt but no carry over as pt directs her own care and stated that her balance if fine and does not need AD. pt went back to the bed mod I. positioned in bed. call light and table placed within reach. informed vocational case manager regarding pt's mobility and not agreeable to recommendations and due to this, will not have any carry over with any training provided. will d/c pt from PT . vocational case manager aware. Gait Assessment Gait Gait Assistance Required: Standby Assistance,Contact Guard Assist Distance (Feet) 40 Able to Maintain Weight Bearing Status Yes During Gait Assistive Devices Assistive Device None,Gait Belt Orthotic/Prosthetic Devices or Brace: No Gait Deviations General Gait Pattern Antalgic Factors Limiting Gait Function Factors Limiting Gait Function Decreased Strength,Poor Balance,Poor Safety Awareness PT-Balance Assessment Sitting Balance and Reactions Static Sitting Balance Ability Normal Dynamic Sitting Balance Ability Good Standing Balance and Reactions Static Standing Balance Ability Good Dynamic Standing Balance Ability Fair Device Used without AD M5 PT-IP Objective Assessments Start: 08/06/22 17:11 Freq: NEEDED Status: Active Protocol: Document 08/06/22 14:35 AB (Rec: 08/06/22 17:29 AB [id number]) Orientation Orientation/Cognition Level of Alertness Alert Orientation Name Language Function Ability No Deficits Noted Safety Awareness Decreased Safety Awareness Memory Description Short Term Impaired,Senior Living Impaired Gross Range of Motion Lower Extremity ROM Assessment Within Functional Limits Strength Lower Extremity Strength Hip 4/5 Knee 4/5 Muscle Tone Muscle Tone WNL Yes M6 PT-IP Treatment Start: 08/06/22 17:11 Freq: NEEDED Status: Active Protocol: Document 08/06/22 14:35 AB (Rec: 08/06/22 17:29 AB [email or web address]) Physical Therapy Treatment Education Education Provided Safety M7 PT-IP Assessment and Plan Start: 08/06/22 17:11 Freq: NEEDED Status: Active Protocol: Document 08/06/22 14:35 AB (Rec: 08/06/22 17:29 AB [email or web address]) PT Summary Assessment and Plan Potential Rehabilitation Potential Poor Status of Condition at Evaluation Stable Summary Impairments Balance,Cognition,Transfers, Gait,Activity Tolerance Assessment Summary PT eval completed. Pt resistant to recommendations and carryover of any training is poor due to this. pt refused to use an AD even though educated on need and safety due to decrease standing balance. pt adamantly refused to use AD and also stated that she does not have balance problems and has not fallen at home. pt admitted to the hospital due to UTI and failure to thrive and her apartment was found to be in disarray per EMR. Pt's mobility seems at baseline but inability to care for self is most likely due to cognitive issues and decrease safety awarness affecting independence. Pt was informed vocational case manager. will d/c PT. Pt will require 24/7 assist availability due to decrease safety awareness affecting mobility independence. Pt will require terminal worker care placement. Frequency of Treatment Frequency Of Treatment Discharge Recommendations To Nursing Amount of Assist Needed 1 Person Assist Discharge Recommendations PT Discharge Recommendations Home with 24/7 Assist Available Other Discharge Recommendations terminal worker care placement Transportation Needs at Discharge Private Vehicle,Wheelchair/ Cabulance
--- NOTE | 2022-08-06 15:57 | CM.DPC ---
DCP Cont: Per MD, pt could be stable for d/c once placement found (LTC or SNF) as pt has been evicted from [facility] due to her inability to care for self, safety concerns, unsanitary living conditions. MELINA spoke to Naa at [facility] and she confirms that she submitted for insurance auth for SNF rehab to determine if [facility] will approve SNF at this time. [facility] also confirms they have Medicaid LTC beds available as well. Per OT, feels pt could benefit from some SNF rehab before LTC placement. Per PT, pt not super willing to participate in recommended DME and may be at baseline and likely more LTC placement need. MELINA called pt's newly assigned [facility] worker Jennifer Manley [phone] and discussed urgent need for LTC assessment and initially assesment would not happen until next week but then Jennifer was able to get an opening for her assessment in two days on Thu08/08/22 at 1300. [facility] Jennifer requested clinicals be emailed to her at [email or web address] and also emailed consents for pt to sign and then return to her before Tuesday 08/08. Jennifer gathered additional information on pt situation from SW and RN towards her pre-screen for the patient and then requested to be transferred into pt room to briefly touch base with pt regarding her ability to understand her situation. MELINA emailed requested clinicals to [facility] along with copy of DPOA showing her adopted son Federico as her DPOA. EMLINA met bedside with pt and provided her with the copies from [facility] to sign for consents and explained each document and pt was agreeable with [facility] assessment towards LTC placement and together SW and pt attempted to call adopted son Federico a couple times and VM full and SW helped pt to text him requesting he call SW and also bring in pt's glasses. MELINA scanned and emailed signed consents back but [facility] Jennifer confirms that ideally we need her adopted son/DPOA Federico to also sign and she also emailed Federico with this information. Plan: Once [facility] LTC assessment is completed on Thu08/08/22 1300 then LTC placement can continue to be attempted ([facility] [place], [facility] have openings). SW to follow for son/DPOA Federico to sign [facility] consents for LTC placement by Thursday and for Geri Srivastava to provide update on determination of SNF auth with [employer] Medicare for SNF prior to LTC placement. MACARENA Vega
[2022-08-06 16:38] VITALS: BP 149/70; PULSE 67
[2022-08-06] MEDS: DIGOXIN 0.125 MG TABLET 0.25 MG PO (16:38)
[2022-08-06 19:30] VITALS: BP 131/61; PULSE 64; RESP 17; TEMP 36.6; O2SAT 97
[2022-08-06] MEDS: QUETIAPINE 25 MG TABLET PO (20:37)
[2022-08-07 08:00] VITALS: BP 122/58; PULSE 70; RESP 18; TEMP 36.2; O2SAT 97
--- NOTE | 2022-08-07 08:01 | P.PN_ITS ---
Subjective Subjective Date Patient Seen: 08/07/22 Interval history: Patient feels well today and no changes to report. Should have assessment by agency for placement today. Exam Vital Signs (past 8 hours): Oxygen Delivery Method Room Air Oxygen Flow Rate 0 Narrative Exam Narrative: GEN: Alert and oriented x 2, NAD HEENT:NC, Face symmetric CHEST: Respiratory excursions symmetric, CTAB CV: RRR, no M/R/G ABD: Soft, NT/ND, BT present in all 4 quadrants, no organomegaly or masses EXTR: warm, well perfused, no C/C/E SKIN: warm and dry, no rash NEURO: Alert and oriented x 2, nonfocal Objective Labs 07/31/22 18:37 07/31/22 18:37 [facility] Surgical History (Updated 11/03/17 @ 06:15 by Conversion Provider) History of hip replacement Status post delivery Status post hysterectomy Social History marital status: household members: none lives independently: Yes caregiver/support person: No housing: house Smoking Status: Former smoker second hand exposure: No alcohol intake: current substance use type: does not use Assessment & Plan Assessment & Plan narrative: 1. Urinary tract infection, treated Culture with E. coli.? She has prior history of E coli UTI several years ago.? Completed Rocephin x3 days. 2. Moderate dementia SLUMS 07/04 on 08/04.? Suspect patient requires a memory care facility placement.? No behavioral disturbances noted. House was apparently in disarray with animal feces all throughout. Patient was also leaving stove on on multiple occasions. 3. Hypertension Blood pressures are normotensive here.? She was prescribed diltiazem, likely for her SVT.? However, she is not adherent with medications. At this time there is no indication for treating blood pressure. 4. Paroxysmal SVT Previously prescribed diltiazem, digoxin, and aspirin, which raises concern for AFib.? However there is nothing in her records pertaining to this.? There is a reported history of SVT and old records.? She is been in sinus rhythm in the emergency department. Await medication reconciliation if possible 5. Normocytic anemia Hemoglobin was 11.6 in the emergency department.? No concern for bleeding. 6. Hyperlipidemia Last lipids on record were performed January of 2020.? Total cholesterol was 285, triglycerides 163, LDL 185, HDL 67.? She was previously prescribed statin therapy, but declines use. 7.? Chronic insomnia Continue nightly Seroquel which has been effective when she was in the emergency department. Code status By default will be full code given her cognitive issues Prophylaxis Low Kandace score Disposition Continue observation status. Care management working on discharge options. GAME BREEDING FARM MANAGER close to finding placement. Time Spent With Patient Critical Care time: I spent a total of [] minutes of critical care time on this patient's care today; this time is exclusive of procedural time. Quality VTE Deep Vein Thrombosis/Pulmonary Embolism Present on Admission: No
--- NOTE | 2022-08-07 09:00 | OT.IP.TRT ---
Occupational Therapy Treatment Note M2 OT-IP Current Condition Start: 08/04/22 12:31 Freq: Status: Active Protocol: Document 08/04/22 12:32 [facility] (Rec: 08/04/22 12:55 [facility] [id number]) Occupational Therapy Current Condition Current Condition Evaluation Date 08/04/22 Treatment Diagnosis inability to care for self, decline in cognition Diagnosis Onset Date 08/02/22 M3 OT- IP Subjective and Pain Start: 08/04/22 12:31 Freq: Status: Active Protocol: Document 08/07/22 09:00 [facility] (Rec: 08/07/22 09:49 [facility] [id number]) OT- Subjective Occupational Therapy Visit Type Type Treatment Note Visit Start Time 09:00 Visit Stop Time 09:08 Total Visit Minutes 8 Occupational Therapy Visit Comments Patient Comments Pt not wanting to shower, but complaining of her brief being stretched out. Patient/Caregiver Goals To go home. OT Pain Assessment Pain When Pain Assessed At Rest Pain Present Pain Present Denied Pain M4 OT- IP ADL's Start: 08/04/22 12:31 Freq: Status: Active Protocol: Document 08/07/22 09:00 [facility] (Rec: 08/07/22 09:49 [facility] [id number]) OT [id number] Comments OT Self-Feeding Comments not meal time OT ADL-Grooming General Evaluation Grooming Ability Standby Assistance Comments OT Grooming Comments SBA while at the sink. OT ADL-Oral Care General Eval Oral Care Ability Standby Assistance Areas of Assistance Brushing Teeth,Retrieving/Set- Up of Items OT ADL-Dressing General Eval Lower Body Dressing Ability Standby Assistance Comments OT Dressing Comments Pt able to chana/doff her wet brief from the bed today. OT ADL-Toileting General Evaluation Toileting Ability Standby Assistance Comments OT Toileting Comments vc for pt to change her brief out as did not know it was wet . OT ADL-Bathing Comments OT Bathing Comments Pt refusing to shower. M5 OT- IP IADL's Start: 08/04/22 12:31 Freq: Status: Active Protocol: Document 08/04/22 12:32 [facility] (Rec: 08/04/22 12:55 [facility] [id number]) OT-Instrumental Activities of Daily Living Deficits IADL Deficits Identified Deficits Home Safety Awareness Awareness of Need for Assistance at Home Decreased Awareness Ability to Problem Solve Emergency Unable to Problem Solve Situations Medication Management Medication Management Comments Concerns regarding pt's ability to perform safely Money Management Money Management Comments Concerns regarding pt's ability to perform safely Meal Preparation Meal Preparation Comments Concerns regarding pt's ability to perform safely Roofing Contractor Roofing Contractor Comments Concerns regarding pt's ability to perform safely Driving Driving Comments Concerns regarding pt's ability to perform safely M6 OT- IP Functional Cognition Start: 08/04/22 12:31 Freq: Status: Active Protocol: Document 08/07/22 09:00 [facility] (Rec: 08/07/22 09:49 [facility] [id number]) Cognitive Factors Limiting Selfcare Function Cognitive Ability Memory Description Short Term Impaired Safety Awareness Underestimates Need for Assistance Cognitive Comments Cognitive Assessment Comments Pt not aware that her brief was wet and felt that her brief was stretched out. Cues to look at her brief and initiate pt to change out her brief. Pt is insists that she is fine and does not need any assistance. M7 OT- IP Mobility and Balance Start: 08/04/22 12:31 Freq: Status: Active Protocol: Document 08/07/22 09:00 [facility] (Rec: 08/07/22 09:49 [facility] [id number]) OT- Bed Mobility Assessment Supine to Sit Supine to Sit Assist Independent Sit to Supine Sit to Supine Assist Independent Scooting Scooting to Edge of Bed Independent OT-Transfer Assessment Sit to and From Stand Sit to and from Stand Standby Assistance Transfers Transfer Ability Standby Assistance Technique Transfer Destination Bed Transfer Technique Stand Step Pivot Comments Mobility Comments Pt able to manage to get to the sink and back to the bed with holding to surfaces and noted a little more steady on her feet today. OT- Balance Assessment Sitting Balance and Reactions Static Sitting Balance Ability Normal Dynamic Sitting Balance Ability Good Standing Balance and Reactions Static Standing Balance Ability Good Dynamic Standing Balance Ability Fair M8 OT- IP Objective Assessments Start: 08/04/22 12:31 Freq: Status: Active Protocol: Document 08/04/22 12:32 [facility] (Rec: 08/04/22 12:55 [facility] [id number]) OT Gross Range of Motion Upper Extremity Range of Motion Assessment Within Functional Limits OT Strength Upper Extremity Strength Assessment Within Functional Limits Comments Strength Comments 4/5 throughout OT- Coordination Assessment Upper Extremity Finger to Nose Test Within Functional Limits Finger Tapping Test Within Functional Limits OT-Muscle Tone Assessment Muscle Tone WNL Yes OT Sensation Assessment Edema Edema Absent M9 OT- IP Assessment and Plan Start: 08/04/22 12:31 Freq: Status: Active Protocol: Document 08/07/22 09:00 [facility] (Rec: 08/07/22 09:49 [facility] [id number]) OT Summary Assessment and Plan Potential Rehabilitation Potential Good Analytic Complexity at Evaluation Low Summary OT Impairments Balance,Functional Cognition, Functional Mobility,Dressing, Bathing,Toilet Transfers, Shower Transfers Progress Towards Goals Progressing Toward Goals Assessment Summary Pt a little steadier on her feet today but still insists on furniture cruising to get around. Pt still needing cues for completeness and safety for ADl needs. Pt would benefit from possibly SNF or memory care /LTC with some rehab or restorative program to maximize and maintain her mobility to prevents from falls as pt refusing to use a device and also due to dementia would proabably not recall to use the device as well. Goals Dressing Goal Independent Toileting Goal Independent Bathing Goal Independent Toilet Transfer Goal Independent Shower Transfer Goal Independent Days to Meet Goals 3 Frequency of Treatment Frequency Of Treatment Once a Day Treatment Plan OT Treatment Plan ADL Training,Functional Cognition Training,Patient/ Family Education,Discharge Planning Other Treatment Recommendations and Next shower, cog training Treatment Focus Discharge Recommendations OT Discharge Recommendations SNF Rehab,LTAC Transportation Needs at Discharge Private Vehicle,Wheelchair/ Cabulance
[2022-08-07] MEDS: DOCUSATE 100 MG CAPSULE PO (09:18)
[2022-08-07] MEDS: ASPIRIN EC 81 MG TABLET PO (09:18)
[2022-08-07] MEDS: dilTIAZem CD 240 MG CAP PO (09:18)
--- NOTE | 2022-08-07 11:30 | PC.NURSE ---
Pt today is medically stable. VS WDL, Pt is able to do most of ADL'S such as feeding, brushing teeth, and toileting. Pt does need minimal assistance w/dressing and showering. Pt is alert to her name, age, birthday, but not to situation, place, or date. Pt is forgetful and needs redirection but is cooperative w/care. Pt is impulsive and tries to get out of bed a few times a day. Pt is a SBA due to slight unsteadiness and recent fall at home.
--- NOTE | 2022-08-07 15:52 | CM.DPNOTE ---
DCP Note Michael Caballero reviewed and signed [facility] consent form today which this THERAPEUTIC RECREATION LEADER emailed w/updated clinical information via secure email to [facility] worker Jennifer Manley <[email or web address]> Functional assessment scheduled for Thursday08.08.22 at 1300 [facility] at [facility] requested updated clinical and therapy notes which were faxed. If patient's AARP MCR does not authorize SNF stay, Naa willing to keep this referral in consideration for fdc EMILIA resident once EMILIA coverage is active and daily rate has been assigned Following closely for coordination of plan JW
[2022-08-07 16:13] VITALS: PULSE 70
[2022-08-07] MEDS: DIGOXIN 0.125 MG TABLET 0.25 MG PO (16:13)
[2022-08-07 19:00] VITALS: BP 127/59; PULSE 66; RESP 14; TEMP 36.4; O2SAT 97
[2022-08-07] MEDS: QUETIAPINE 25 MG TABLET PO (20:40)
[2022-08-07] MEDS: ACETAMINOPHEN 325 MG TABLET 650 MG PO (20:40)
[2022-08-08 07:00] VITALS: BP 136/61; PULSE 76; RESP 18; TEMP 37.2; O2SAT 99
--- NOTE | 2022-08-08 07:25 | PM.PN.1 ---
Subjective Subjective Date Patient Seen: 08/08/22 Interval history: No updates. Patient sleeping and not awakened. Exam Vital Signs (past 8 hours): Oxygen Delivery Method Room Air Oxygen Flow Rate 0 Narrative Exam Narrative: GEN: Alert and oriented x 2, NAD HEENT:NC, Face symmetric CHEST: Respiratory excursions symmetric, CTAB CV: RRR, no M/R/G ABD: Soft, NT/ND, BT present in all 4 quadrants, no organomegaly or masses EXTR: warm, well perfused, no C/C/E SKIN: warm and dry, no rash NEURO: Alert and oriented x 2, nonfocal Objective Labs 07/31/22 18:37 07/31/22 18:37 [facility] Surgical History (Updated 11/03/17 @ 06:15 by Conversion Provider) History of hip replacement Status post delivery Status post hysterectomy Social History marital status: household members: none lives independently: Yes caregiver/support person: No housing: house Smoking Status: Former smoker second hand exposure: No alcohol intake: current substance use type: does not use Assessment & Plan Assessment & Plan narrative: 1. Urinary tract infection, treated Culture with E. coli.? She has prior history of E coli UTI several years ago.? Completed Rocephin x3 days. 2. Moderate dementia SLUMS 07/04 on 08/04.? Suspect patient requires a memory care facility placement.? No behavioral disturbances noted. House was apparently in disarray with animal feces all throughout. Patient was also leaving stove on on multiple occasions. 3. Hypertension Blood pressures are normotensive here.? She was prescribed diltiazem, likely for her SVT.? However, she is not adherent with medications. At this time there is no indication for treating blood pressure. 4. Paroxysmal SVT Previously prescribed diltiazem, digoxin, and aspirin, which raises concern for AFib.? However there is nothing in her records pertaining to this.? There is a reported history of SVT and old records.? She is been in sinus rhythm in the emergency department. Await medication reconciliation if possible 5. Normocytic anemia Hemoglobin was 11.6 in the emergency department.? No concern for bleeding. 6. Hyperlipidemia Last lipids on record were performed January of 2020.? Total cholesterol was 285, triglycerides 163, LDL 185, HDL 67.? She was previously prescribed statin therapy, but declines use. 7.? Chronic insomnia Continue nightly Seroquel which has been effective when she was in the emergency department. Code status By default will be full code given her cognitive issues Prophylaxis Low Kandace score Disposition Continue observation status. Care management working on discharge options. ROTARY SHEAR WORKER HELPER close to finding placement and has a facility assessing her. Hopeful dc in 2 days or so. Time Spent With Patient Critical Care time: I spent a total of [] minutes of critical care time on this patient's care today; this time is exclusive of procedural time. Quality VTE Deep Vein Thrombosis/Pulmonary Embolism Present on Admission: No
--- NOTE | 2022-08-08 08:28 | PC.NURSE ---
Addendum entered by Hernán Coleman R.N. 08/08/22 18:40: Very active throughout the afternoon and evening needing to go to the BR, gait steady with SBA. taking fluids well, eating about 75% of her meals. Original Note: alert. restful, pleasant. Follows commands.
[2022-08-08] MEDS: dilTIAZem CD 240 MG CAP PO (08:47)
[2022-08-08] MEDS: DOCUSATE 100 MG CAPSULE PO (08:47)
[2022-08-08] MEDS: ASPIRIN EC 81 MG TABLET PO (08:47)
--- NOTE | 2022-08-08 08:58 | OT.IP.TRT ---
Occupational Therapy Treatment Note M2 OT-IP Current Condition Start: 08/04/22 12:31 Freq: Status: Active Protocol: Document 08/04/22 12:32 [facility] (Rec: 08/04/22 12:55 [facility] [id number]) Occupational Therapy Current Condition Current Condition Evaluation Date 08/04/22 Treatment Diagnosis inability to care for self, decline in cognition Diagnosis Onset Date 08/02/22 M3 OT- IP Subjective and Pain Start: 08/04/22 12:31 Freq: Status: Active Protocol: Document 08/08/22 10:20 [facility] (Rec: 08/08/22 10:34 [facility] [id number]) OT- Subjective Occupational Therapy Visit Type Type Treatment Note Visit Start Time 08:58 Visit Stop Time 09:23 Total Visit Minutes 25 Occupational Therapy Visit Comments Patient Comments Pt agreed to go up to change out her brief and wash up at ths sink. Patient/Caregiver Goals To go home. OT Pain Assessment Pain When Pain Assessed At Rest Pain Present Pain Present Denied Pain M4 OT- IP ADL's Start: 08/04/22 12:31 Freq: Status: Active Protocol: Document 08/08/22 10:20 [facility] (Rec: 08/08/22 10:34 [facility] [id number]) OT [id number] Comments OT Self-Feeding Comments not meal time OT ADL-Grooming General Evaluation Grooming Ability Standby Assistance Comments OT Grooming Comments vc for orientation of items on the sink. OT ADL-Oral Care General Eval Oral Care Ability Standby Assistance Areas of Assistance Brushing Teeth,Retrieving/Set- Up of Items Comments Oral Care Comments vc to use wter to rinse her mouth out before spitting it out OT ADL-Dressing General Eval Lower Body Dressing Ability Standby Assistance Comments OT Dressing Comments Pt able to chana/doff her wet brief from the bed today. OT ADL-Toileting General Evaluation Toileting Ability Standby Assistance Comments OT Toileting Comments At use of the toilet, pt agreed to use wahs cloth to clean pericare needs. OT ADL-Bathing Comments OT Bathing Comments Pt refusing to shower. M5 OT- IP IADL's Start: 08/04/22 12:31 Freq: Status: Active Protocol: Document 08/04/22 12:32 [facility] (Rec: 08/04/22 12:55 [facility] [id number]) OT-Instrumental Activities of Daily Living Deficits IADL Deficits Identified Deficits Home Safety Awareness Awareness of Need for Assistance at Home Decreased Awareness Ability to Problem Solve Emergency Unable to Problem Solve Situations Medication Management Medication Management Comments Concerns regarding pt's ability to perform safely Money Management Money Management Comments Concerns regarding pt's ability to perform safely Meal Preparation Meal Preparation Comments Concerns regarding pt's ability to perform safely Technician Preventative Medicine Technician Preventative Medicine Comments Concerns regarding pt's ability to perform safely Driving Driving Comments Concerns regarding pt's ability to perform safely M6 OT- IP Functional Cognition Start: 08/04/22 12:31 Freq: Status: Active Protocol: Document 08/08/22 10:20 [facility] (Rec: 08/08/22 10:34 [facility] [id number]) Cognitive Factors Limiting Selfcare Function Cognitive Ability Level of Alertness Alert Patient Orientation Name Attention Span Ability Capable of Focused Attention Ability to Follow Commands Able to Follow One Step Commands Memory Description Short Term Impaired Cognitive Comments Cognitive Assessment Comments Pt continues to need cues from completeness for ADL's. Py is pleasan and able to follow commands. M7 OT- IP Mobility and Balance Start: 08/04/22 12:31 Freq: Status: Active Protocol: Document 08/08/22 10:20 [facility] (Rec: 08/08/22 10:34 [facility] [id number]) OT- Bed Mobility Assessment Supine to Sit Supine to Sit Assist Independent Sit to Supine Sit to Supine Assist Independent Scooting Scooting to Edge of Bed Independent OT-Transfer Assessment Sit to and From Stand Sit to and from Stand Standby Assistance Transfers Transfer Ability Standby Assistance Technique Transfer Destination Bed,Toilet Transfer Technique Stand Step Pivot Comments Mobility Comments Pt continues to use her hand for occasional touch onto surfaaces for balance. Pt able to walk to and from the door with wide base of support , small steps but no loss of balance. Pt appears to be close to her baseline for ADl and mobility needs. OT- Balance Assessment Sitting Balance and Reactions Static Sitting Balance Ability Normal Dynamic Sitting Balance Ability Good Standing Balance and Reactions Static Standing Balance Ability Good Dynamic Standing Balance Ability Fair Comments Other Balance Tests/Deviations/Treatment Pt able to come from sit to : stand form bench seating x10. M8 OT- IP Objective Assessments Start: 08/04/22 12:31 Freq: Status: Active Protocol: Document 08/04/22 12:32 [facility] (Rec: 08/04/22 12:55 C[facility] [id number]) OT Gross Range of Motion Upper Extremity Range of Motion Assessment Within Functional Limits OT Strength Upper Extremity Strength Assessment Within Functional Limits Comments Strength Comments 4/5 throughout OT- Coordination Assessment Upper Extremity Finger to Nose Test Within Functional Limits Finger Tapping Test Within Functional Limits OT-Muscle Tone Assessment Muscle Tone WNL Yes OT Sensation Assessment Edema Edema Absent M9 OT- IP Assessment and Plan Start: 08/04/22 12:31 Freq: Status: Active Protocol: Document 08/08/22 10:20 [facility] (Rec: 08/08/22 10:34 [facility] [id number]) OT Summary Assessment and Plan Potential Analytic Complexity at Evaluation Low Summary OT Impairments Balance,Functional Cognition, Functional Mobility,Dressing, Bathing,Toilet Transfers, Shower Transfers Progress Towards Goals Progressing Toward Goals Assessment Summary Pt able to walk in the room without use of touching surfaces and no loss of balance while getting back to the bed from the sink. Pt still needing cues for completeness for ADl needs. Pt appears at her baseline for ADL and mobility needs. Pt would benefit from memory care /LTC. Discharge pt from OT services as nursing to provide supervision for all her needs due to decreased STM. Frequency of Treatment Frequency Of Treatment Discharge Discharge Recommendations OT Discharge Recommendations LTAC Transportation Needs at Discharge Private Vehicle,Wheelchair/ Cabulance
[2022-08-08] MEDS: BENZOCAINE/MENTHOL 1 LOZ PKT 1 EACH PO ×2 (14:30→18:59)
--- NOTE | 2022-08-08 15:04 | CM.DPNOTE ---
DCP Note HS/HCS worker Jennifer Manley started the functional assessment today w/patient by phone. According to Jennifer, she will have additional questions Thursday for nursing and social work team re patient, she will then be able to complete her assessment (timeline?) Jennifer reports by email to this ADMINISTRATIVE PROFESSIONAL she needs to review clinical more thoroughly before quizzing [facility] staff re patient's care needs Placement efforts continue. Need completed and signed [facility] assessment and assignment of EMILIA daily rate before securing placement JW
[2022-08-08 17:37] VITALS: BP 145/67; PULSE 72
[2022-08-08] MEDS: DIGOXIN 0.125 MG TABLET 0.25 MG PO (17:37)
[2022-08-08 19:00] VITALS: BP 133/64; PULSE 70; RESP 18; TEMP 37; O2SAT 99
[2022-08-08] MEDS: QUETIAPINE 25 MG TABLET PO (21:14)
[2022-08-08] MEDS: diphenhydrAMINE 25 MG TABLET PO (21:21)
--- NOTE | 2022-08-08 23:18 | PC.NURSE ---
Patient is oriented to self, birthdate and age only. Breath sounds CTA with RA sat of 99%. HRR. Denied nausea. BT present and abdomen is soft but noted to not have BM documented since 08/02 despite use of Colace daily; will check with hospitalist re: other bowel meds. Voiding on toilet although also has been documented as having some incontinent voids so is wearing a brief. Denied dysuria or urgency but has been voiding frequently which she reports is due to drinking alot of water. Able to move self in bed and gets up to bathroom with SBA. Is impulsive and does not remember to use call light and crawls out of bed so SCD's are not in use as felt to increase risk of falls. Did complain earlier of itching so was medicated with Benadryl and is currently asleep. Denied pain. Fall risk score is high and bed alarm is activated.
[2022-08-09 08:24] VITALS: BP 150/64; PULSE 71; RESP 16; TEMP 36.2; O2SAT 98
[2022-08-09] MEDS: DOCUSATE 100 MG CAPSULE PO (09:12)
[2022-08-09] MEDS: ASPIRIN EC 81 MG TABLET PO (09:12)
[2022-08-09] MEDS: dilTIAZem CD 240 MG CAP PO (09:12)
[2022-08-09] MEDS: SENNOSIDES 8.6 MG TABLET PO ×2 (09:12→20:19)
[2022-08-09] MEDS: ACETAMINOPHEN 325 MG TABLET 650 MG PO (09:58)
--- NOTE | 2022-08-09 15:04 | PM.PN.1 ---
Subjective Subjective Date Patient Seen: 08/09/22 Interval history: Patient feels well today and no changes to report. She states she wants to go home and reports her family needs her. Exam Vital Signs (past 8 hours): - 08/09/22 08:24 Temperature 97.2 F L Pulse Rate 71 Respiratory Rate 16 Blood Pressure 150/64 H Pulse Oximetry 98 Oxygen Delivery Method Room Air Oxygen Flow Rate 0 Narrative Exam Narrative: GEN: Alert and oriented x 2, NAD HEENT:NC, Face symmetric CHEST: Respiratory excursions symmetric, CTAB CV: RRR, no M/R/G ABD: Soft, NT/ND, BT present in all 4 quadrants, no organomegaly or masses EXTR: warm, well perfused, no C/C/E SKIN: warm and dry, no rash NEURO: Alert and oriented x 2, nonfocal Objective Labs 07/31/22 18:37 07/31/22 18:37 [facility] Surgical History (Updated 11/03/17 @ 06:15 by Conversion Provider) History of hip replacement Status post delivery Status post hysterectomy Social History marital status: household members: none lives independently: Yes caregiver/support person: No housing: house Smoking Status: Former smoker second hand exposure: No alcohol intake: current substance use type: does not use Assessment & Plan Assessment & Plan narrative: 1. Urinary tract infection, treated Culture with E. coli.? She has prior history of E coli UTI several years ago.? Completed Rocephin x3 days. 2. Moderate dementia SLUMS 07/04 on 08/04.? Suspect patient requires a memory care facility placement.? No behavioral disturbances noted. House was apparently in disarray with animal feces all throughout. Patient was also leaving stove on on multiple occasions. 3. Hypertension Blood pressures are normotensive here.? She was prescribed diltiazem, likely for her SVT.? However, she is not adherent with medications. At this time there is no indication for treating blood pressure. 4. Paroxysmal SVT Previously prescribed diltiazem, digoxin, and aspirin, which raises concern for AFib.? However there is nothing in her records pertaining to this.? There is a reported history of SVT and old records.? She is been in sinus rhythm in the emergency department. Await medication reconciliation if possible 5. Normocytic anemia Hemoglobin was 11.6 in the emergency department.? No concern for bleeding. 6. Hyperlipidemia Last lipids on record were performed January of 2020.? Total cholesterol was 285, triglycerides 163, LDL 185, HDL 67.? She was previously prescribed statin therapy, but declines use. 7.? Chronic insomnia Continue nightly Seroquel which has been effective when she was in the emergency department. Code status By default will be full code given her cognitive issues Prophylaxis Low Kandace score Disposition Continue observation status. Care management working on discharge options. NEWSPAPER EDITOR close to finding placement and has a facility assessing her. Hopeful dc in 2 days or so. Time Spent With Patient Critical Care time: I spent a total of [] minutes of critical care time on this patient's care today; this time is exclusive of procedural time. Quality VTE Deep Vein Thrombosis/Pulmonary Embolism Present on Admission: No
[2022-08-09 16:35] VITALS: BP 150/64; PULSE 71
[2022-08-09] MEDS: DIGOXIN 0.125 MG TABLET 0.25 MG PO (16:35)
[2022-08-09] MEDS: BENZOCAINE/MENTHOL 1 LOZ PKT 1 EACH PO (17:26)
[2022-08-09] MEDS: QUETIAPINE 25 MG TABLET PO (20:19)
[2022-08-09 20:44] VITALS: BP 142/58; PULSE 69; RESP 16; TEMP 36.2; O2SAT 97
--- NOTE | 2022-08-09 21:33 | PC.NURSE ---
Patient is alert but oriented only to self, birthdate and age. Breath sounds CTA with RA sat of 97%. States her asthma is acting up and reports wheezing but none observed or auscultated. HRR w/BP of 142/58. Denies nausea. Last BM was 08/02 and was started on Senna today; also provided with prune juice. Is voiding on toilet but also incontinent at times. Is able to turn herself in bed and is getting out of bed with SBA; no assistive device. Has scratches/abrasions on bilateral LE but no itching tonight. Reddened area in left abdominal fold but no breakdown. Denies pain. Fall risk score is high and bed alarm is activated.
[2022-08-10] MEDS: ACETAMINOPHEN 325 MG TABLET 650 MG PO (01:33)
[2022-08-10 09:00] VITALS: TEMP 36.2
[2022-08-10] MEDS: SENNOSIDES 8.6 MG TABLET PO ×2 (10:14→20:19)
[2022-08-10] MEDS: ASPIRIN EC 81 MG TABLET PO (10:14)
[2022-08-10] MEDS: DOCUSATE 100 MG CAPSULE PO (10:14)
[2022-08-10] MEDS: dilTIAZem CD 240 MG CAP PO (10:14)
[2022-08-10 10:32] VITALS: BP 124/58; PULSE 69; RESP 18; TEMP 35.8; O2SAT 96
--- NOTE | 2022-08-10 12:03 | P.CONS_ITS ---
History of Present Illness Consult details Chief complaint: erika, failure to thrive Narrative: Chart was briefly reviewed: Sounds like Ms. Andres is an 81-year-old female who has pretty advanced dementia and was living independently without any resources. She has presented with a urinary tract infection and is being treated for such. I asked Mrs. Andres when I met her today if she was having any pain, and she denied that, other than pain in her arm from an IV. She denied any pain in her rectum or bottom at all at this time, she said she is never had any pain there. She told me a story about an adopted son and him being 6 years old and moving to this city. I asked her what city it is that we were in and she just was not sure. I do not think I can obtain any type of accurate history from her. But I do believe that if she tells me she is not having pain in her rectum that she is not, at this very moment having pain, which is great. Meds Home Medications and Allergies Home Medications Medication Instructions Recorded Confirmed Type acetaminophen 500 mg tablet 1,000 mg PO BID ##0 07/07/17 08/07/22 History (Tylenol Extra Strength) digoxin 250 mcg (0.25 mg) tablet 0.25 mg PO QDAY ##0 07/07/17 08/07/22 History (Lanoxin) diltiazem HCl 240 mg 240 mg PO QDAY ##0 07/20/17 08/07/22 History tablet,extended release 24 hr (Cardizem LA) docusate sodium 100 mg capsule 100 mg PO QDAY ##0 07/20/17 08/07/22 History (Colace) zolpidem 6.25 mg tablet,extended 6.25 mg PO HS ##0 07/20/17 08/07/22 History release,multiphase (Ambien CR) aspirin 81 mg tablet,delayed 81 mg PO BID #60 tabs 07/21/17 08/07/22 Rx release hydrocodone 5 mg-acetaminophen 325 1 tab PO Q4HP PRN #60 tabs 07/22/17 08/07/22 Rx mg tablet ([place]) rosuvastatin 20 mg tablet 20 mg PO DAILY 12/24/17 08/07/22 History nitrofurantoin 100 mg PO BID #20 caps 03/14/18 08/07/22 Rx monohydrate/macrocrystals 100 mg capsule (Macrobid) Allergies Allergy/AdvReac Type Severity Reaction Status Date / Time Sulfa (Sulfonamide Allergy Severe NAUSEA, Verified 11/07/21 10:31 Antibiotics) VAGINAL [SULFA (SULFONAMIDE ITCHING ANTIBIOTICS)] oxycodone [OXYCODONE] Allergy Unknown Verified 11/07/21 10:31 codeine [CODEINE] AdvReac Intermediate NAUSEA Verified 11/07/21 10:31 Exam Vital Signs (past 8 hours): - 08/10/22 09:00 08/10/22 10:32 Temperature 97.2 F L 96.5 F L Pulse Rate 69 Respiratory Rate 18 Blood Pressure 124/58 L Pulse Oximetry 96 Oxygen Flow Rate 0 Oxygen Delivery Method Room Air Oxygen Flow Rate 0 Narrative Exam Narrative: Mrs. Rodriguez is awake and alert. She is not oriented. She is pleasant She has extraordinarily poor dentition. Her abdomen is soft and nontender. Her rectum reveals a prolapse of rectum of approximately 15 cm. At this time it is red and a little bit edematous. It is nontender. Objective Labs 07/31/22 18:37 07/31/22 18:37 [facility] Surgical History (Updated 11/03/17 @ 06:15 by Conversion Provider) History of hip replacement Status post delivery Status post hysterectomy Social History marital status: household members: none lives independently: Yes caregiver/support person: No housing: house Tobacco & Substance Use Smoking Status: Former smoker second hand exposure: No alcohol intake: current substance use type: does not use Assessment & Plan Assessment and plan (1) Complete rectal prolapse: Status: Acute Plan I was able to reduce the prolapse completely at the bedside. I provided education to the bedside nurse about how to do that and advised her that if it was not reducing or the patient began to feel pain or tenderness that she may call me back for assistance as needed. For now I will wait for call back before I plan to see Ms. Andres again. However if she would like to have this addressed she can follow-up in my office and I can either refer her to a colorectal surgeon and she can have an abdominal procedure which I think physically she is probably healthy enough to tolerate just using the eyeball test. We also have perineal approach for rectal resection for prolapse AKA the Altemeier procedure which can be also done to resect the prolapsed portion however this procedure generally has higher rates of relapse and is reserved for people who can not tolerate an abdominal surgery generally. Right now it seems that Mrs. Andres's social needs are more important than addressing the prolapse and so I will just say she can follow-up with me as needed. Time Spent With Patient Time with patient: less than 30 minutes Critical Care time: I spent a total of [] minutes of critical care time on this patient's care today; this time is exclusive of procedural time.
--- NOTE | 2022-08-10 13:30 | P.PN_ITS ---
Subjective Subjective Date Patient Seen: 08/10/22 Interval history: Patient feels well today and no changes to report. She states she wants to go home and reports her family needs her. Her rectum prolapsed today, called and discussed with surgeon whom was able to reduce at bedside today. Outpatient follow up is recommended. Exam Vital Signs (past 8 hours): - 08/10/22 09:00 08/10/22 10:32 Temperature 97.2 F L 96.5 F L Pulse Rate 69 Respiratory Rate 18 Blood Pressure 124/58 L Pulse Oximetry 96 Oxygen Flow Rate 0 Oxygen Delivery Method Room Air Oxygen Flow Rate 0 Narrative Exam Narrative: Mrs. Rodriguez is awake and alert. She is not oriented. She is pleasant She has extraordinarily poor dentition. Her abdomen is soft and nontender. Rectum prolapsed and visible laying in lateral recumbent positioning. Objective Labs 07/31/22 18:37 07/31/22 18:37 [facility] Surgical History (Updated 11/03/17 @ 06:15 by Conversion Provider) History of hip replacement Status post delivery Status post hysterectomy Social History marital status: household members: none lives independently: Yes caregiver/support person: No housing: house Smoking Status: Former smoker second hand exposure: No alcohol intake: current substance use type: does not use Assessment & Plan Assessment & Plan narrative: 1. Urinary tract infection, treated Culture with E. coli.? She has prior history of E coli UTI several years ago.? Completed Rocephin x3 days. 2. Moderate dementia SLUMS 07/04 on 08/04.? Suspect patient requires a memory care facility plac ement.? No behavioral disturbances noted. House was apparently in disarray with animal feces all throughout. Patient was also leaving stove on on multiple occasions. 3. Hypertension Blood pressures are normotensive here.? She was prescribed diltiazem, likely for her SVT.? However, she is not adherent with medications. At this time there is no indication for treating blood pressure. 4. Paroxysmal SVT Previously prescribed diltiazem, digoxin, and aspirin, which raises concern for AFib.? However there is nothing in her records pertaining to this.? There is a reported history of SVT and old records. -continue home diltiazem and digoxin. -continue asa 5. Normocytic anemia Hemoglobin was 11.6 in the emergency department.? No concern for bleeding. 6. Hyperlipidemia Last lipids on record were performed January of 2020.? Total cholesterol was 285, triglycerides 163, LDL 185, HDL 67.? She was previously prescribed statin therapy, but declines use. 7.? Chronic insomnia Continue nightly Seroquel which has been effective when she was in the emergency department. 8. Rectal prolapse - rectum prolapsed on 08/10, reduced by general surgery ,appreciate their consultation. - Continue to reduce as needed, but if pain or unable to reduce contact general surgery at that time. Code status By default will be full code given her cognitive issues Prophylaxis Low Kandace score Disposition Continue observation status. Care management working on discharge options. CERTIFIED SURGICAL TECH/FIRST ASSISTANT close to finding placement and has a facility assessing her. Hopeful dc in a couple of days. She is at baseline function per PT and OT now. Time Spent With Patient Critical Care time: I spent a total of [] minutes of critical care time on this patient's care today; this time is exclusive of procedural time. Quality VTE Deep Vein Thrombosis/Pulmonary Embolism Present on Admission: No
--- NOTE | 2022-08-10 14:39 | CM.DPC ---
DCP Ongoing Planning: Per MD, Surgeon was consulted due to pt's rectal prolapse which was able to be improved at bedside without the need for surgical intervention at this time but if becomes painful or tender than Surgeon can consult again to determine if surgery needed. MELINA discussed with the request from [facility] [phone] option 5 for a Peer to Peer with MD to make final determination if they will auth SNF. MD kindly reviewed pt's PT/OT notes and they have signed off as pt seems to be at baseline and more appropriate for fci/group home care rather than SNF rehab. [facility] assigned worker Jennifer [phone] has started pt's LTC assessment for placement but plans to contact [facility] staff (RN and SW) towards gathering additional information tomorrow 08/11/22 towards finalizing the assessment as pt is a poor historian. Plan: SW to follow closely with [facility] Jennifer in the AM towards completion of LTC assessment and then following up with [facility], [facility], [facility], etc... towards medicaid bed for group home care. MACARENA Vega
--- NOTE | 2022-08-10 18:10 | PC.NURSE ---
Approximately 1030 this morning pt had her second BM with PCT and this nurse was called to examine pts bottom. A large rectal prolapse of approx. seven inches long and five inches around was noted. Pt denied pain. Dr Vanegas was notified and examined this patient. Dr. De Anda was available to help reduce this at the beside. Pt said she has never had this happen before. She explained that she thought it must be some bad food she ate. Pt was educated on the results of weak pelvic floor muscles, consitpation and the risk for rectal prolapse in advanced female age. Pt was encouraged to lay on her left side in bed and rest.
[2022-08-10] MEDS: DIGOXIN 0.125 MG TABLET 0.25 MG PO (18:36)
[2022-08-10 20:00] VITALS: BP 129/57; PULSE 59; RESP 18; TEMP 37.1; O2SAT 96
[2022-08-10] MEDS: QUETIAPINE 25 MG TABLET PO (20:19)
[2022-08-10] MEDS: BENZOCAINE/MENTHOL 1 LOZ PKT 1 EACH PO (20:19)
[2022-08-11] MEDS: ACETAMINOPHEN 325 MG TABLET 650 MG PO (04:32)
[2022-08-11] MEDS: BENZOCAINE/MENTHOL 1 LOZ PKT 1 EACH PO (05:17)
[2022-08-11 07:00] VITALS: BP 138/61; PULSE 67; RESP 16; TEMP 36.1; O2SAT 96
[2022-08-11] MEDS: DOCUSATE 100 MG CAPSULE PO (09:44)
[2022-08-11] MEDS: ASPIRIN EC 81 MG TABLET PO (09:44)
[2022-08-11] MEDS: SENNOSIDES 8.6 MG TABLET PO ×2 (09:44→20:22)
[2022-08-11] MEDS: dilTIAZem CD 240 MG CAP PO (09:44)
--- NOTE | 2022-08-11 12:14 | P.PN_ITS ---
Subjective Subjective Date Patient Seen: 08/11/22 Interval history: Patient feels well today and no changes to report. Exam Vital Signs (past 8 hours): - 08/11/22 07:00 Temperature 97 F L Pulse Rate 67 Respiratory Rate 16 Blood Pressure 138/61 Pulse Oximetry 96 Oxygen Flow Rate 0 Oxygen Delivery Method Room Air Oxygen Flow Rate 0 Narrative Exam Narrative: Mrs. Rodriguez is awake and alert. She is not oriented. She is pleasant She has extraordinarily poor dentition. Her abdomen is soft and nontender. Objective Labs 07/31/22 18:37 07/31/22 18:37 [facility] Surgical History (Updated 11/03/17 @ 06:15 by Conversion Provider) History of hip replacement Status post delivery Status post hysterectomy Social History marital status: household members: none lives independently: Yes caregiver/support person: No housing: house Smoking Status: Former smoker second hand exposure: No alcohol intake: current substance use type: does not use Assessment & Plan Assessment & Plan narrative: 1. Urinary tract infection, treated Culture with E. coli.? She has prior history of E coli UTI several years ago.? Completed Rocephin x3 days. 2. Moderate dementia SLUMS 07/04 on 08/04.? Suspect patient requires a memory care facility placement.? No behavioral disturbances noted. House was apparently in disarray with animal feces all throughout. Patient was also leaving stove on on multiple occasions. 3. Hypertension Blood pressures are normotensive here.? She was prescribed diltiazem, likely for her SVT.? However, she is not adherent with medications. At this time there is no indication for treating blood pressure. 4. Paroxysmal SVT Previously prescribed diltiazem, digoxin, and aspirin, which raises concern for AFib.? However there is nothing in her records pertaining to this.? There is a reported history of SVT and old records. -continue home diltiazem and digoxin. -continue asa 5. Normocytic anemia Hemoglobin was 11.6 in the emergency department.? No concern for bleeding. 6. Hyperlipidemia Last lipids on record were performed January of 2020.? Total cholesterol was 285, triglycerides 163, LDL 185, HDL 67.? She was previously prescribed statin therapy, but declines use. 7.? Chronic insomnia Continue nightly Seroquel which has been effective when she was in the emergency department. 8. Rectal prolapse - rectum prolapsed on 08/10, reduced by general surgery ,appreciate their consultation. - Continue to reduce as needed, but if pain or unable to reduce contact general surgery at that time. Code status By default will be full code given her cognitive issues Prophylaxis Low Kandace score Disposition Continue observation status. Care management working on discharge options. MINGLER OPERATOR close to finding placement and has a facility assessing her. Hopeful dc in a couple of days. She is at baseline function per PT and OT now. Time Spent With Patient Critical Care time: I spent a total of [] minutes of critical care time on this patient's care today ; this time is exclusive of procedural time. Quality VTE Deep Vein Thrombosis/Pulmonary Embolism Present on Admission: No
--- NOTE | 2022-08-11 13:14 | CM.DPC ---
Addendum entered by MACARENA Vega 08/11/22 15:39: ADD: Per December at [facility], they decline accepting pt for LTC bed but states she discussed with [facility] [employer] [employer] John that they would be willing to review pt knowing she would be a Medicaid LTC placement. MELINA called Alka at [facility] and [place] [facility] with above information and faxed pt's referral to her fax [phone] requesting review and call back to determine if they could possibly accept (likely pending HCS assessment). BF Original Note: LTC Planning Per MD, pt remains medically stable with moderate dementia but no behaviors. SW confirmed that pt's insurance [employer] officially denied SNF auth as pt is at baseline and group home care. SW contacted pt's HCS assigned worker Jennifer [phone] ([email or web address]) and she confirms that pt's clinicals are being uploaded into their system for the assessment and she will gather a few additional information pieces from nursing staff today. MELINA requested assessment zev towards placement and Jennifer acknowledges understanding and states her goal is for assessment to be completed and approved by supervisors by Wed this week 08/13/22 as she will be out of the office on Thurs and Fri. Jennifer also confirms since dementia in MD notes then this will be added to assessment and likely increase her rate. Jennifer may have a sense of daily rate by tomorrow 08/12/22. MELINA called following facilities regarding LTC Medicaid beds: [facility]- cannot accept pt safely due to dementia and they are an open campus [facility]- 2 year spenddown before Medicaid [place] [facility] [place] in [facility]: [facility]- no Medicaid beds [place]- no Medicaid beds [facility]- [facility]. [facility]- may have a Medicaid bed, willing to review. [facility]- could still accept for LTC bed but need pt's ACES number and Provider One number for billing before they could accept. MELINA provided [facility] with pt's ACES number [phone] but Admissions Coordinators confirmed that pt is not currently active with Medicaid and therefore Provider One number has not yet been assigned and will be active once pt's HCS assessment completed. Plan: SW to follow closely with pt's HCS worker Jennifer tomorrow towards determining if Provider One number has been assigned yet towards getting pt discharged to possible [facility] and f/u with [facility] and [facility] for possible placement options as backup. MACARENA Vega
--- NOTE | 2022-08-11 13:26 | DIET.CONS2 ---
Dietary Inpatient Consultation Note Admission Date: 08/02/2022 09:05 Pt on LOS day 9 awaiting safe d/c plan. Pt consuming 50-100% meal trays during hospitalization, pt with a mix of non-select items and meals she chooses herself. No additional nutrition needs identified at this time. Diet: 08/01/22 Breakfast General (Regular) Diet Diet Modifications: Nutrition Percent Meal Consumed 50% 08/10/22 18:17 Percent Meal Consumed 50% 08/10/22 13:49 Percent Meal Consumed 75% 08/10/22 09:00 Percent Meal Consumed 50% 08/09/22 17:29 Percent Meal Consumed 75% 08/09/22 13:28 Electronically Signed by: Kiera Kingsley 08/11/22 13:26 Clinical Dietitian [address] [address]
[2022-08-11] MEDS: DIGOXIN 0.125 MG TABLET 0.25 MG PO (17:59)
--- NOTE | 2022-08-11 20:03 | PC.NURSE ---
Addendum entered by Lew Rodriguez R.N. 08/12/22 03:37: Pt having clear with scant bleeding discharge from rectum during brief changes. Original Note: 0740: pt sat on toilet, MEDICAL DIR noticed blood and called this RN. Rectum had prolapsed, pt brought back to bed to lay on side. RN placed rectum back in. 0750: pt feeling needing to urinate, upon sitting down on toilet rectum prolapsed again. Same thing performed as above. Patient denied pain/discomfort 'i feel fine' both times. Patient resting in bed.
[2022-08-11] MEDS: QUETIAPINE 25 MG TABLET PO (20:22)
[2022-08-11 20:38] VITALS: BP 137/56; PULSE 67; RESP 18; TEMP 36.7; O2SAT 97
--- NOTE | 2022-08-12 08:15 | CM.DPC ---
Addendum entered by Ann-Marie Phillips R.N. 08/12/22 13:06: Bettye was able to get in touch with Tyrell Curtis, this [place] Surface Water Manager had attempted earlier, and she did not return call. Stated that patient does not have provider one number, needs to know level of care from case management social worker, which Jennifer Manley originally did, but Purvi is in for her today. Called Purvi back and asked her to call Tyrell back with information regarding level of care. Tyrell indicated that facility that patient is going to should not need a provider one number, she is already approved with Medicaid. Called Naa at [facility] and left her a message asking her to call Santillan Curtis, and gave her the phone number. Will follow up if no response within the hour. Attempting to get patient discharged today. Addendum entered by Ann-Marie Phillips R.N. 08/12/22 12:11: Purvi, from [facility] called back. She looked up patient and indicated that she does not have a provider one number uploaded as of yet. She stated, they normally don't deal with finances, that is another department. She gave this [place] Surface Water Manager phone number for Tyrell Curtis. Her number is: [phone]. Called her and left her a message, gave her patient name, and asked about a provider one number in the message. In the message, let her know that patient has an accepting facility for today. Did let Purvi know that [facility] has accepted, which is a skilled facility. She indicated that when she discharges, let her know so she can transfer this over to the team that works with manager terminal skilled facilities versus boarding homes. Updated Naa at [facility], as she can't accept without this provider one number, so she can bill for services. Did complete PASSR today. Addendum entered by Ann-Marie Phillips R.N. 08/12/22 11:16: Had sent an email to Jennifer Manley, and received a response that she is out of the office due to training, and can get in touch with her repair supervisor, Jessica. Called her, she is out in the field, signing out on assessments. Let her know that this patient can be discharged [facility], but need a provider number. She indicated that she can get the number when she gets back in her office within the next hour, and will call this [place] Surface Water Manager back. Do have ACES number: [phone], was in [facility] note from yesterday. Did call Naa at [facility] and gave her the number. She still needs provider one number. Did get vaccination information sent to Naa. Will also email the change group to see if they have provider one number as of yet. Addendum entered by Ann-Marie Phillips R.N. 08/12/22 09:29: Spoke to Naa at [facility]. Stated that she can accept patient as long as she can get provider one number, today if early enough. Have a call out to Jennifer Manley, [facility] pillowcase maker, will attempt again. Original Note: DCP Cont: Left a message with Jennifer Manley [facility] child welfare caseworker who had completed assessment for patient's jail care. Asked her in the message if she can quote a daily rate. If she is able, and provider one is received, can updated the facilities that have been sent referrals. [facility] in [place] is asking for this, and may be able to accept once provider one is completed. It is also noted that [facility] takes Medicaid, will confirm this today, and [facility], may potentially have a Medicaid bed. P: Will continue to reach out to Jennifer to see if she has a daily rate and provider one, will contact [facility] to confirm that they take Medicaid. Ann-Marie Phillips RN/Natural Gas Treating Unit Operator
[2022-08-12] MEDS: SENNOSIDES 8.6 MG TABLET PO ×2 (08:21→20:22)
[2022-08-12] MEDS: dilTIAZem CD 240 MG CAP PO (08:21)
[2022-08-12] MEDS: ASPIRIN EC 81 MG TABLET PO (08:22)
[2022-08-12] MEDS: DOCUSATE 100 MG CAPSULE PO (08:22)
[2022-08-12 08:46] VITALS: BP 122/58; PULSE 80; RESP 16; TEMP 36.5; O2SAT 98
[2022-08-12] MEDS: ACETAMINOPHEN 325 MG TABLET 650 MG PO (16:46)
[2022-08-12 16:50] VITALS: BP 134/73; PULSE 68
[2022-08-12] MEDS: DIGOXIN 0.125 MG TABLET 0.25 MG PO (16:50)
--- NOTE | 2022-08-12 18:04 | P.PN_ITS ---
Subjective Subjective Date Patient Seen: 08/12/22 Interval history: Patient feels well today and no changes to report. Exam Vital Signs (past 8 hours): - 08/12/22 16:50 Pulse Rate 68 Blood Pressure 134/73 Oxygen Delivery Method Room Air Oxygen Flow Rate 0 Narrative Exam Narrative: Mrs. Rodriguez is awake and alert. She is not oriented. She is pleasant She has extraordinarily poor dentition. Her abdomen is soft and nontender. Objective Labs 07/31/22 18:37 07/31/22 18:37 [facility] Surgical History (Updated 11/03/17 @ 06:15 by Conversion Provider) History of hip replacement Status post delivery Status post hysterectomy Social History marital status: household members: none lives independently: Yes caregiver/support person: No housing: house Smoking Status: Former smoker second hand exposure: No alcohol intake: current substance use type: does not use Assessment & Plan Assessment & Plan narrative: 1. Urinary tract infection, treated Culture with E. coli.? She has prior history of E coli UTI several years ago.? Completed Rocephin x3 days. 2. Moderate dementia SLUMS 07/04 on 08/04.? Suspect patient requires a memory care facility placement.? No behavioral disturbances noted. House was apparently in disarray with animal feces all throughout. Patient was also leaving stove on on multiple occasions. 3. Hypertension Blood pressures are normotensive here.? She was prescribed diltiazem, likely for her SVT.? However, she is not adherent with medications. At this time there is no indication for treating blood pressure. 4. Paroxysmal SVT Previously prescribed diltiazem, digoxin, and aspirin, which raises concern for AFib.? However there is nothing in her records pertaining to this.? There is a reported history of SVT and old records. -continue home diltiazem and digoxin. -continue asa 5. Normocytic anemia Hemoglobin was 11.6 in the emergency department.? No concern for bleeding. 6. Hyperlipidemia Last lipids on record were performed January of 2020.? Total cholesterol was 285, triglycerides 163, LDL 185, HDL 67.? She was previously prescribed statin therapy, but declines use. 7.? Chronic insomnia Continue nightly Seroquel which has been effective when she was in the emergency department. 8. Rectal prolapse - rectum prolapsed on 08/10, reduced by general surgery ,appreciate their consultation. - Continue to reduce as needed, but if pain or unable to reduce contact general surgery at that time. Code status By default will be full code given her cognitive issues Prophylaxis Low Kandace score Disposition Continue observation status. Care management working on discharge options. OPTICAL LAB TECHNICIAN close to finding placement and has a facility assessing her. Hopeful dc in a couple of days. She is at baseline function per PT and OT now. Time Spent With Patient Critical Care time: I spent a total of [] minutes of critical care time on this patient's care today; this time is exclusive of procedural time. Quality VTE Deep Vein Thrombosis/Pulmonary Embolism Present on Admission: No
[2022-08-12] MEDS: BENZOCAINE/MENTHOL 1 LOZ PKT 1 EACH PO (19:15)
[2022-08-12] MEDS: NYSTATIN POWDER 15GM 1 APPLIC TOP (20:00)
[2022-08-12 20:20] VITALS: BP 147/64; PULSE 64; RESP 18; TEMP 35.7; O2SAT 97
[2022-08-12] MEDS: QUETIAPINE 25 MG TABLET PO (20:22)
--- NOTE | 2022-08-12 22:55 | PC.NURSE ---
Patient is oriented only to self, birthdate and age. Breath sounds CTA with RA sat of 97%. HRR w/BP of 147/64. Denied nausea. BT present and abdomen is soft. Voiding on toilet but is sometimes also incontinent of urine. Is able to turn herself. Is impulsive and gets up forgetting to call for staff assist so SCD's not being used as would increase risk of falls. Provided SBA when out of bed. Denied pain. Reddened left abdominal fold without breakdown; nystatin applied. Scratches/abrasions present bilateral LE; no complaint of itching tonight. Fall risk score is moderate and bed alarm is activated.
[2022-08-13] MEDS: SENNOSIDES 8.6 MG TABLET PO ×2 (08:13→20:26)
[2022-08-13] MEDS: ACETAMINOPHEN 325 MG TABLET 650 MG PO ×2 (08:13→16:25)
[2022-08-13] MEDS: ASPIRIN EC 81 MG TABLET PO (08:13)
[2022-08-13] MEDS: DOCUSATE 100 MG CAPSULE PO (08:13)
[2022-08-13] MEDS: dilTIAZem CD 240 MG CAP PO (08:13)
[2022-08-13 08:17] VITALS: BP 128/70; PULSE 72; RESP 16; TEMP 36.6; O2SAT 96
[2022-08-13] MEDS: BENZOCAINE/MENTHOL 1 LOZ PKT 1 EACH PO ×2 (12:34→18:50)
--- NOTE | 2022-08-13 17:07 | P.PN_ITS ---
Subjective Subjective Date Patient Seen: 08/13/22 Time Patient Seen: 08:00 Interval history: She says she feels great. She denies any concerns Exam Vital Signs (past 8 hours): Oxygen Delivery Method Room Air Oxygen Flow Rate 0 Narrative Exam Narrative: GEN: no acute distress CV: regular rate and rhythm PULM: clear bilaterally Objective Labs 07/31/22 18:37 07/31/22 18:37 [facility] Surgical History (Updated 11/03/17 @ 06:15 by Conversion Provider) History of hip replacement Status post delivery Status post hysterectomy Social History marital status: household members: none lives independently: Yes caregiver/support person: No housing: house Smoking Status: Former smoker second hand exposure: No alcohol intake: current substance use type: does not use Assessment & Plan Assessment & Plan narrative: 1. Urinary tract infection, treated Culture with E. coli.? She has prior history of E coli UTI several years ago.? Completed Rocephin x3 days. 2. Moderate dementia SLUMS 07/04 on 08/04.? Suspect patient requires a memory care facility placement.? No behavioral disturbances noted. House was apparently in disarray with animal feces all throughout. Patient was also leaving stove on on multiple occasions. 3. Hypertension Blood pressures are normotensive here.? She was prescribed diltiazem, likely for her SVT.? However, she is not adherent with medications. At this time there is no indication for treating blood pressure. 4. Paroxysmal SVT Previously prescribed diltiazem, digoxin, and aspirin, which raises concern for AFib.? However there is nothing in her records pertaining to this.? There is a reported history of SVT and old records. -continue home diltiazem and digoxin. -continue asa 5. Normocytic anemia Hemoglobin was 11.6 in the emergency department.? No concern for bleeding. 6. Hyperlipidemia Last lipids on record were performed January of 2020.? Total cholesterol was 285, triglycerides 163, LDL 185, HDL 67.? She was previously prescribed statin therapy, but declines use. 7.? Chronic insomnia Continue nightly Seroquel which has been effective when she was in the emergency department. 8. Rectal prolapse - rectum prolapsed on 08/10, reduced by general surgery ,appreciate their consultation. - Continue to reduce as needed, but if pain or unable to reduce contact general surgery at that time. Dispo: Per case management likely discharge to facility on 08/14 Time Spent With Patient Critical Care time: I spent a total of [] minutes of critical care time on this patient's care today; this time is exclusive of procedural time. Quality VTE Deep Vein Thrombosis/Pulmonary Embolism Present on Admission: No
[2022-08-13 17:39] VITALS: BP 140/66
[2022-08-13] MEDS: DIGOXIN 0.125 MG TABLET 0.25 MG PO (17:39)
--- NOTE | 2022-08-13 18:27 | CM.DPC ---
DCP/Continued: Reviewed chart. CM team indicate that patient has been accepted at [facility] in [place] if we can provide them with provider one number. GEOLOGICAL DRAFTER spent most of the day today placing calls to state assigned worker, and [facility] financial worker. Never received call back from patient's assigned CM Jennifer therefore, reached out to her properties supervisor Purvi Henryton ph# [phone]. She explained the [facility] process for prioritizing long-term care patient's. Notified Purvi that we need provider one number and patient can go to [facility]. Purvi reports that she will get it and call me back. Received return call and provider ID# is [id number]. Purvi requests call on day of d/c so that she can redistribute case to appropriate state team. Previous application was for [facility] or Assisted living. P: Provider and RN aware patient scheduled to be picked up at 9:30AM tomorrow 08-14-22. Case to be assigned to RN/Salena because she is familiar with time spent today working on this case. MACARENA Jeffries
[2022-08-13] MEDS: QUETIAPINE 25 MG TABLET PO (20:26)
[2022-08-13] MEDS: NYSTATIN POWDER 15GM 1 APPLIC TOP (20:35)
--- NOTE | 2022-08-13 22:57 | PC.NURSE ---
Patient is alert but oriented only to self, birthdate and age. Breath sounds CTA. HRR. Denies nausea. BT present and abdomen is soft; reports passing flatus. Denies dysuria, frequency or urgency with urination and is both continent and incontinent of urine. Able to turn herself in bed and is provided SBA when out of bed as is at risk for falls. SCD's not used due to fall risk and patient being impulsive and not calling for assistance. Denied pain. Fall risk score is moderate and bed alarm is activated.
[2022-08-14 05:51] VITALS: BP 113/60; PULSE 72; RESP 18; TEMP 36.6; O2SAT 97
[2022-08-14] MEDS: diphenhydrAMINE 25 MG TABLET PO (07:55)
[2022-08-14] MEDS: dilTIAZem CD 240 MG CAP PO (08:00)
[2022-08-14] MEDS: SENNOSIDES 8.6 MG TABLET PO (08:00)
[2022-08-14] MEDS: ASPIRIN EC 81 MG TABLET PO (08:00)
[2022-08-14] MEDS: DOCUSATE 100 MG CAPSULE PO (08:00)
--- NOTE | 2022-08-14 08:11 | P.DS_ITS ---
History of Present Illness History of Present Illness Chief complaint: erika, failure to thrive Narrative: Per admitting provider: 81-year-old female with hypertension, hyperlipidemia, hypothyroidism, osteoarthritis, allergic rhinitis, anxiety disorder, asthma, and paroxysmal SVT who also likely has undiagnosed Alzheimer's dementia who was brought in to the emergency department with inability to care for herself. According to the records, patient lives at [facility]. She previously had a caregiver but subsequently fired them. She lives alone with 2 dogs. Recently, animal welfare was called out to her home due to concerns about her 2 dogs not being adequately cared for. They noted feces and urine on the floor with significant carpet staining. Community tourist camp attendant was contacted and subsequently came out to evaluate the patient. She underwent 2 separate visits. Both time she denied any needs. She underwent BIMS assessment on both occasions with scores of 9 and 11 respectively, both of which are consistent with moderate cognitive impairment. The facility had reported episodes of her leaving the stove on. They turned the brake graft to this toe. More recently, she has been flushing b riefs and dog feces down the toilet which has led to the toilet becoming clogged. She is now reportedly been evicted from the facility. She was brought to the emergency department via EMS last evening due to concerns about her inability to care for herself. Patient had received an eviction notice due to her living conditions. EMS reported the apartment she lived in his covered in urine and feces. She was noted have stable vital signs. Laboratories revealed mild normocytic anemia with a hemoglobin of 11.6. Normal white blood cell count. Normal platelet count. Chemistry panel was within normal limits. LFTs and cardiac enzymes were within normal limits. UA did reveal positive nitrites, 3+ leukocyte esterase, 5-10 white cells per high-power field, and many bacteria. Patient was given IV Rocephin. Urine was sent for culture. She would a dose of Seroquel overnight which she reports greatly helped her sleep. I am told that the patient has no resources, no disposition plan, and family is not able to provide assistance. Admission was recommended. Patient reports she is feeling fairly well after getting a good night's sleep. She denies any ill symptoms specifically no fevers or chills. She ate a good breakfast. Her main complaint is feeling chilly in the emergency department. Discharge Providers Provider Date of admission: 08/02/22 09:05 Discharge Date: 08/14/22 Primary care physician: Melvin White MD Consults: 07/31/22 19:19 Consult to COMMUNICATIONS TECHNICIAN - Headline Writer Stat Comment: 08/02/22 10:30 Consult to Discharge Planning Routine Comment: Needs placement Consult to Occupational Therapy Evaluate & Treat Comment: SLUMS pls Physician Instructions: Evaluate and treat 08/06/22 11:59 Consult to Physical Therapy Evaluate & Treat Comment: Physician Instructions: Evaluate and Treat Discharge provider: Ga Chamorro MD Summary Hospital Course Discharge Diagnosis: 1. UTI 2. Dementia 3. Hypertension 4. Paroxymal SVT 5. Anemia 6. Hyperlipidemia 7. Insomnia 8. Rectal prolapse Hospital Course: Ms. Andres was brought in with inability to care for herself. She has progressing dementia.k She had a UTI when she was admitted and this was treated and she improved. She was ultimately discharged to a facility to provide more resources for her. Exam Vital Signs (past 8 hours): - 08/14/22 05:51 Temperature 97.8 F Pulse Rate 72 Respiratory Rate 18 Blood Pressure 113/60 Pulse Oximetry 97 Oxygen Flow Rate 0 Oxygen Delivery Method Room Air Oxygen Flow Rate 0 Narrative Exam Narrative: GEN: no acute distress CV: regular rate and rhythm PULM: clear bilaterally Objective Labs 07/31/22 18:37 07/31/22 18:37 [facility] Surgical History (Updated 11/03/17 @ 06:15 by Conversion Provider) History of hip replacement Status post delivery Status post hysterectomy Social History marital status: household members: none lives independently: Yes caregiver/support person: No housing: house Smoking Status: Former smoker second hand exposure: No alcohol intake: current substance use type: does not use Discharge Plan Discharge Plan Patient Disposition: SNF I certify [facility] care is medically necessary on a continuing basis for any conditions for which he/ she received care during this hospitalization.: Yes The receiving facility has agreed to accept transfer and provide medical treatment.: Yes Discharge orders & Medications Prescriptions: Continued acetaminophen [Tylenol Extra Strength] 500 MG tablet 1,000 mg PO BID Qty: 0 digoxin [Lanoxin] 250 MCG tablet 0.25 mg PO QDAY Qty: 0 diltiazem HCl [Cardizem LA] 240 MG tablet extended release 24 hr 240 mg PO QDAY Qty: 0 docusate sodium [Colace] 100 MG capsule 100 mg PO QDAY Qty: 0 aspirin 81 MG tablet,delayed release (DR/EC) 81 mg PO BID Qty: 60 0RF rosuvastatin 20 mg tablet 20 mg PO DAILY Discontinued zolpidem [Ambien CR] 6.25 MG tablet,ext release multiphase 6.25 mg PO HS Qty: 0 hydrocodone-acetaminophen [Culdesac] 5 MG/325 MG tablet 1 tab PO Q4HP PRNQty: 60 0RF nitrofurantoin monohyd/m-cryst [Macrobid] 100 mg capsule 100 mg PO BID Qty: 20 0RF Rx Instructions: must administer with a meal/food Follow up/Referrals: Melvin White MD [Primary Care Provider] - Diet/Activity/Treatments Diet: Regular Visit Report/Discharge Packet Stand Alone Forms: Patient Portal/API, Stroke Signs & Symptoms Discharge Data Primary Care Provider: Melvin White V Attending Provider: Yeimi Hoskins VTE Deep Vein Thrombosis/Pulmonary Embolism Present on Admission: No
[2022-08-14 08:25] VITALS: BP 143/61; PULSE 60; RESP 16; TEMP 36.2; O2SAT 99
--- NOTE | 2022-08-14 09:58 | PC.NURSE ---
Pt had assistance with dressing and gathering all belonging with HIGH SPEED WARPER TENDER. This RN called [facility], located [facility] twice and left a message regarding patient report and left hospital phone number, and waited on phone for response for 10 mins. Facility's transportee arrived and I explained to him that I could not get ahold of a nurse to give her report and he also text a person from facility about the message I sent. Pt left unit @ 0945 via wheelchair provided by facililty transport with all belongings.
--- NOTE | 2022-08-14 14:18 | CM.DPC ---
DCP Continued: WES spoke with Naa and Rosetta at [facility] today who stated they could accept the patient at [place]. WES worked with executive chef assistant Mary Jane to get trinidad mancini DC summary, PASSR and medication sent to [facility]. Patient Transport was set up for 0930 this morning and patients son was notified. Patient was not happy about going to [facility] for placement and told CM she wanted to go back to her house at [facility]. CM explained to the patient that she was not allowed back to there she was confused and said she would just go back to her house by the point. CM explained that according to her son she does not have a house any where. Patient called her son who helped CM explain that she does not have a home to go back to and she needed to go to [facility]. Patient was confused but agreed to go to [place]. patient was DC to [facility]. About two hours after DC Naa with [facility] called WES back saying patient was refusing to be admitted and sign paperwork. Wes called her son who stated he would go to [facility] to help his mother get set up. WES Called Naa back and LVM and sent her an email with that information. Salena Corral RNtobacco warehouse manager
--- NOTE | 2022-08-14 14:30 | CM.DPNOTE ---
Call from [facility] 1300: Assisting CM Salena, accepted call from Naa at [facility], admissions. This SUPERVISOR [employer] requested to speak with senior storage administrator Rosetta cell P [phone], according to our conversation: May arrived this morning to [facility] requesting to speak with her son Federico and resistant to admission to her room because she could not have her dog with her. May had been resistant to signing consent ppk according to Rosetta May had refused to leave the lobby at [facility] at time of this conversation, [facility] staff attempting contact w/son Federico who has not been readily available Rosetta at [facility] explains that staff cannot treat May because she has not been admitted yet and Rosetta fearful that patient is an elopement risk Offered to share known supports to include Tomy Burns, Community agriculture science teacher and Jeremiah Erickson director that assisted in escorting patient from her apt at [facility] to ER. Rosetta explains numerous people have been talking with patient throughout the morning. In addition, patient has a friend (?) that has arrived to assist Rosetta explained that if patient is not agreeable to admitting to their building today they can not force her. Rosetta expected that either 1. Mya would change her mind w/assist from staff, friends and family who have attempted to redirect May 2. Federico picks May up 3. EMS called to transport May to nearest ER and APS report Requested that oRsetta call this CM team with outcome and Rosetta agreed MACARENA Raya
== END 2022-08-14 09:45 ==
LOC: ED 08-02 07:00 → AC 08-02 09:06
PROVIDERS: Emergency Medicine; Admitting Provider Family Medicine; Emergency Provider Emergency Medicine; PCP Internal Medicine; Referring Provider Emergency Medicine; Visit Provider Family Medicine
DX: N39.0 Urinary tract infection, site not specified (principal); B96.20 Unspecified Escherichia coli [E. coli] as the cause of diseases classified elsewhere; R62.7 Adult failure to thrive; I10 Essential (primary) hypertension; K62.3 Rectal prolapse; E78.5 Hyperlipidemia, unspecified; G47.00 Insomnia, unspecified; D64.9 Anemia, unspecified; I47.1 Supraventricular tachycardia; F03.B0 Unspecified dementia, moderate, without behavioral disturbance, psychotic disturbance, mood disturbance, and anxiety
CPT/HCPCS: 36415; 70450; 71045; 80053; 81001; 81003; 82550; 82607; 82746; 83605; 83690; 83735; 84443; 84484; 85025; 87077; 87086; 87186; 87635; 93005; 96365; 96366; 97129; 97161; 97165; 97530; 97535; 99284; C9803; G0378; J0696

== ENCOUNTER → 2022-09-24 07:26 | Outpatient (ROUT) | payer MEDICARE, SELFPAY ==
[2022-09-24 07:39] LABS: Add Manual Diff / Slide Review NO; Basophils Absolute Auto 100 /uL (0-100); Basophils Percent Auto 0.7 % (0-2); Eosinophils Absolute Auto 100 /uL (0-450); Eosinophils Percent Auto 1.6 % (2-4); Hematocrit 38.9 % (36-46); Hemoglobin 12.7 g/dL (12.0-16.0); Lymphocytes Absolute Auto 1300 /uL (1100-4500); Lymphocytes Percent Auto 16.5 % (25-40); Mean Corpuscular HGB Conc 32.7 % (30-36); Mean Corpuscular Hemoglobin 28.4 PG (26-34); Mean Corpuscular Volume 86.9 fL (80-100); Monocytes Absolute Auto 600 /uL (0-900); Neutrophils Absolute Auto 6100 /uL (1500-7000); Neutrophils Percent Auto 74.2 % (50-75); Platelet Count 231 X10^3/uL (150-400); Red Blood Cell Count 4.47 X10^6/uL (4.0-5.2); White Blood Cell Count 8.2 X10^3/uL (4.5-11.0)
[2022-09-24 08:03] LABS: Carbon Dioxide 27 mmol/L (22-32); Chloride 104 mmol/L (98-107); HEMOLYSIS < 15 (0-50); Potassium 3.8 mmol/L (3.4-5.1); Sodium 140 mmol/L (137-145)
[2022-09-24 08:26] LABS: Thyroid Stimulating Hormone 0.834 uIU/mL (0.47-4.68)
[2022-09-24 08:53] LABS: Vitamin B12 282 pg/mL (239-931)
== END ==
PROVIDERS: PCP Internal Medicine; Visit Provider Internal Medicine
DX: I10 Essential (primary) hypertension (principal)
CPT/HCPCS: 36415; 80051; 82607; 84443; 85025

== ENCOUNTER → 2023-12-02 06:26 | Outpatient (ROUT) | payer MEDICARE, SELFPAY ==
[2023-12-02 07:12] LABS: Add Manual Diff / Slide Review NO; Basophils Absolute Auto 100 /uL (0-100); Basophils Percent Auto 0.8 % (0-2); Eosinophils Absolute Auto 200 /uL (0-450); Eosinophils Percent Auto 2.3 % (2-4); Hematocrit 37.8 % (36-46); Hemoglobin 12.5 g/dL (12.0-16.0); Lymphocytes Absolute Auto 1500 /uL (1100-4500); Lymphocytes Percent Auto 17.8 % (25-40); Mean Corpuscular HGB Conc 33.1 % (30-36); Mean Corpuscular Hemoglobin 28.6 PG (26-34); Mean Corpuscular Volume 86.3 fL (80-100); Monocytes Absolute Auto 700 /uL (0-900); Monocytes Percent Auto 8.3 % (3-14); Neutrophils Absolute Auto 6100 /uL (1500-7000); Neutrophils Percent Auto 70.8 % (50-75); Platelet Count 215 X10^3/uL (150-400); Red Blood Cell Count 4.38 X10^6/uL (4.0-5.2); Red Cell Distribution Width 14.8 % (11.6-14.8); White Blood Cell Count 8.6 X10^3/uL (4.5-11.0)
[2023-12-02 07:38] LABS: Alanine Aminotransferase 10 IU/L (<35); Albumin Globulin Ratio 1.5 (1.0-2.8); Alkaline Phosphatase 78 U/L (38-126); Aspartate Aminotransferase 19 IU/L (14-36); BUN Creatinine Ratio 19.3 (6-22); Bilirubin Total 0.8 mg/dL (0.2-1.3); Blood Urea Nitrogen 11 mg/dL (7-17); Calcium 8.9 mg/dL (8.4-10.2); Carbon Dioxide 28 mmol/L (22-32); Chloride 106 mmol/L (98-107); Estimated Glomerular Filt Rate > 60 mL/min (>60); Globulin 2.6 g/dL (1.7-4.1); Glucose 107 mg/dL (80-110); HEMOLYSIS < 15 (0-50); Potassium 4.1 mmol/L (3.4-5.1); Sodium 140 mmol/L (137-145); Total Protein 6.6 g/dL (6.3-8.2)
[2023-12-02 08:27] LABS: Vitamin B12 914 pg/mL (239-931)
== END ==
PROVIDERS: PCP Internal Medicine; Visit Provider Internal Medicine
DX: E03.9 Hypothyroidism, unspecified (principal); D64.9 Anemia, unspecified
CPT/HCPCS: 36415; 80053; 82607; 84443; 85025

== ENCOUNTER → 2023-12-24 09:20 | Outpatient (CLI) | payer MEDICARE, MEDICAID, SELFPAY ==
[2023-12-24 09:44] LABS: Appearance Urine UA CLEAR; Bilirubin Urine UA NEGATIVE (NEGATIVE); Color Urine UA YELLOW; Glucose Urine UA NEGATIVE (Negative); Ketones Urine UA NEGATIVE (NEGATIVE); Leukocyte Esterase Urine UA 1+ (NEGATIVE); Nitrite Urine UA POSITIVE (Negative); Occult Blood Urine UA NEGATIVE (Negative); Protein Urine UA NEGATIVE (Negative); Specific Gravity Urine UA <=1.005 (1.000-1.035); Urobilinogen Urine UA 0.2 E.U./dL (0.2)
[2023-12-24 09:51] LABS: Bacteria Urine Many (>30); Culture Indicated Urine Specimen Cultured; RBC Urine None Seen (0-5/HPF); Squamous Epithelial Cell Urine None Seen (0-5/HPF); Urine Volume 10mL (spun); WBC Urine 1-5/HPF (0-5/HPF)
== END ==
LOC: LAB 09:23
PROVIDERS: PCP Internal Medicine; Referring Provider Nurse Practitioner Family; Visit Provider Nurse Practitioner Family
DX: N39.0 Urinary tract infection, site not specified (principal)
CPT/HCPCS: 81001; 87077; 87086; 87186

== ENCOUNTER 2024-05-18 09:05 | Emergency (ER) | payer MEDICARE, MEDICAID, SELFPAY ==
[2024-05-18 09:09] VITALS: PULSE 86; O2SAT 93
[2024-05-18 09:11] VITALS: BP 132/62; PULSE 80; O2SAT 94
--- NOTE | 2024-05-18 09:28 | ED_ITS ---
HPI - Weakness General Chief complaint: Weakness Stated complaint: Weakness T-4 Time Seen by Provider: 05/18/24 09:37 History of Present Illness HPI Narrative: Patient brought in by ambulance for generalized weakness. Blood sugar 127. [facility] state patient has had generalized weakness for the past 4 days. She has had these symptoms before with UTIs. Patient has history of dementia. [id number] is with the state agency. Patient at this time awake alert oriented self and date of only. She denies any pain. No headache back pain chest pain abdominal pain. Denies any problems urinating. No nausea or vomiting or diarrhea. Patient had 2 controlled falls by staff at the facility. No injury. This is due to weakness according to EMS. Related Data Home Medications Medication Instructions Recorded Confirmed acetaminophen 500 mg tablet 1,000 mg PO BID ##0 07/07/17 08/07/22 (Tylenol Extra Strength) digoxin 250 mcg (0.25 mg) tablet 0.25 mg PO QDAY ##0 07/07/17 08/07/22 (Lanoxin) diltiazem HCl 240 mg 240 mg PO QDAY ##0 07/20/17 08/07/22 tablet,extended release 24 hr (Cardizem LA) docusate sodium 100 mg capsule 100 mg PO QDAY ##0 07/20/17 08/07/22 (Colace) rosuvastatin 20 mg tablet 20 mg PO DAILY 12/24/17 08/07/22 Previous Rx's Medication Instructions Recorded aspirin 81 mg tablet,delayed 81 mg PO BID #60 tabs 07/21/17 release cephalexin 500 mg capsule 500 mg PO BID #6 caps 05/18/24 Allergies Allergy/AdvReac Type Severity Reaction Status Date / Time Sulfa (Sulfonamide Allergy Severe NAUSEA, Verified 11/07/21 10:31 Antibiotics) VAGINAL [SULFA (SULFONAMIDE ITCHING ANTIBIOTICS)] oxycodone [OXYCODONE] Allergy Unknown Verified 11/07/21 10:31 codeine [CODEINE] AdvReac Intermediate NAUSEA Verified 11/07/21 10:31 Review of Systems Review of Systems Narrative: GENERAL: Negative chills, positive fatigue, malaise, negative fever, sweats. HEENT: Negative sinus pain, ear pain, sore throat RESPIRATORY: Negative dyspnea, cough CARDIOVASCULAR: Negative chest pain, palpitations GASTROINTESTINAL: Negative nausea, vomiting, abdominal pain : Negative dysuria, frequency, hematuria MUSCULOSKELETAL: Negative muscle or bony pain SKIN: Negative rash, skin lesions NEUROLOGIC: Negative weakness, numbness ROS Unobtainable: All systems reviewed & are unremarkable except as noted in HPI and below Patient History Surgical History History of hip replacement Status post hysterectomy Status post delivery Social History marital status: household members: none lives independently: Yes caregiver/support person: No housing: house Smoking Status: Former smoker second hand exposure: No alcohol intake: current substance use type: does not use Smoking Status: Former smoker alcohol intake frequency: 3 or more drinks per day Substance Use Type: does not use Exam Narrative Exam Narrative: GENERAL: in no distress, not toxic not dyspneic HEAD: Normocephalic. EYES: Pupils equal round ENT: Mucous membranes moist. NECK: Trachea midline. CARDIOVASCULAR: Regular rate and rhythm RESPIRATORY: Clear to auscultation. Breath sounds equal bilaterally. No wheezes, rales, or rhonchi. GASTROINTESTINAL: Abdomen soft, non-tender EXTREMITIES: No gross deformities. BACK: No flank tenderness. NEURO: AOx 2, fast exam is negative. Clear speech no facial droop strong equal conference services director negative pronator drift lift each leg off the bed without drift. SKIN: Warm and dry PSYCH: Not anxious, is cooperative Initial Vital Signs Initial Vital Signs: Vital Signs Pulse Rate 86 05/18/24 09:09 Pulse Oximetry 93 05/18/24 09:09 Course Orders Ordered: Discontinued Medications Cephalexin HCl (Cephalexin 250 Mg Capsule) 500 mg PO NOW ONE Stop: 05/18/24 10:03 Last Admin: 05/18/24 10:31 Dose: 500 mg Documented By: CTS Vital Signs Vital signs: Vital Signs - 8 hr 05/18/24 09:09 05/18/24 09:11 05/18/24 09:11 Temperature Pulse Rate 86 80 Respiratory Rate Blood Pressure 132/62 Pulse Oximetry 93 94 Oxygen Delivery Method 05/18/24 09:30 05/18/24 09:30 05/18/24 09:44 Temperature 97.8 F Pulse Rate 81 7 L Respiratory Rate 29 H 16 Blood Pressure 123/59 L 123/59 L Pulse Oximetry 94 93 Oxygen Delivery Method Room Air MDM - Weakness Lab Data 05/18/24 09:15 05/18/24 09:15 Labs: Lab Results 05/18/24 05/18/24 05/18/24 Range/Units 09:15 09:35 09:46 WBC 8.8 (4.5-11.0) X10^3/uL RBC 4.41 (4.0-5.2) X10^6/uL Hgb 13.1 (12.0-16.0) g/dL Hct 39.3 (36-46) % MCV 89.1 (80-100) fL MCH 29.6 (26-34) PG MCHC 33.2 (30-36) % RDW 14.7 (11.6-14.8) % Plt Count 169 (150-400) X10^3/uL Neut % (Auto) 61.9 (50-75) % Lymph % (Auto) 26.5 (25-40) % [place] % (Auto) 9.3 (3-14) % Eos % (Auto) 1.8 L (2-4) % Baso % (Auto) 0.5 (0-2) % Neut # (Auto) 5400 (2820-2522) /uL Lymph # (Auto) 2300 (1556-9768) /uL [place] # (Auto) 800 (0-900) /uL Eos # (Auto) 200 (0-450) /uL Baso # (Auto) 0 (0-100) /uL PT 12.6 H (9.4-12.5) SECONDS INR 1.1 (0.9-1.3) APTT 31 (25.1-36.5) SECONDS Sodium 138 (137-145) mmol/L Potassium 4.9 (3.4-5.1) mmol/L Chloride 106 (98-107) mmol/L Carbon Dioxide 27 (22-32) mmol/L BUN 22 H (7-17) mg/dL Creatinine 0.79 (0.52-1.04) mg/dL Estimated GFR > 60 (>60) mL/min BUN/Creatinine Ratio 27.8 H (6-22) Glucose 106 (80-110) mg/dL Lactate 1.2 (0.7-2.1) mmol/L Calcium 8.9 (8.4-10.2) mg/dL Total Bilirubin 1.0 (0.2-1.3) mg/dL AST 36 (14-36) IU/L ALT 16 (<35) IU/L Alkaline Phosphatase 42 (38-126) U/L Total Protein 7.5 (6.3-8.2) g/dL Albumin 4.1 (3.5-5.0) g/dL Globulin 3.4 (1.7-4.1) g/dL Albumin/Globulin Ratio 1.2 (1.0-2.8) TSH 0.963 (0.47-4.68) uIU/mL Prolactin 15.2 (3.0-18.6) ng/mL Urine Color Yellow Urine Appearance Sl cloudy Urine pH 5.5 (4.5-8.0) Ur Specific [place] >=1.030 H (1.000-1.035) Urine Protein Negative (Negative) Urine Glucose (UA) Negative (Negative) g/dL Urine Ketones Negative (NEGATIVE) Urine Occult Blood Negative (Negative) Urine Nitrate Positive H (Negative) Urine Bilirubin Negative (NEGATIVE) Urine Urobilinogen 1.0 (0.2) E.U./dL Ur Leukocyte Esterase Negative (NEGATIVE) Urine RBC None seen (0-5/HPF) Urine WBC 1-5/hpf (0-5/HPF) Ur Squamous Epith Cells 0-1 /hpf (0-5/HPF) Urine Bacteria Many (>30) H (None) Ur Culture Indicated? Specimen cultured Vol Urine Centrifuged 10ml (spun) Chlamy pneumoniae PCR Not detected (Not Detect) Adenovirus (PCR) Not detected (Not Detect) B. pertussis DNA (PCR) Not detected (Not Detect) B.parapertussis DNA PCR Not detected (Not Detecte) Coronavirus OC43 (PCR) Not detected (Not Detect) Coronavirus HKU1 (PCR) Not detected (Not Detect) Coronavirus 229E (PCR) Not detected (Not Detect) SARS-CoV-2 (PCR) Not detected (Not Detecte) Coronavirus NL63 (PCR) Not detected (Not Detect) Human Metapneumovir PCR Not detected (Not Detect) Influenza Type A (PCR) Not detected (Not Detect) Influenza Type B (PCR) Not detected (Not Detect) M. pneumoniae (PCR) Not detected (Not Detect) Parainfluenza 1 (PCR) Not detected (Not Detect) Parainfluenza 2 (PCR) Not detected (Not Detect) Parainfluenza 3 (PCR) Not detected (Not Detect) Parainfluenza 4 (PCR) Not detected (Not Detect) RSV (PCR) Not detected (Not Detect) Entero/Rhino (PCR) Not detected (Not Detect) Point of Care Testing Glucose POC 120 Imaging Data Chest x-ray: Radiologist Impression: [address] [address] XRay Report Signed Patient: May Andres MR#: [id number] : 1940 Acct:[id number] Age/Sex: 83 / F Date of Service: 05/18/24 Loc: ED Accession Number: [id number] Procedure: XR chest 1V Ordering Provider: Tylor Dwyer MD PROCEDURE: XR CHEST 1V INDICATIONS: Cough TECHNIQUE: One view of the chest was acquired. COMPARISON: [facility], , XR CHEST 1V, 07/31/2022, 19:17. FINDINGS: Surgical changes and devices: None. Lungs and pleura: Lungs are clear. No pleural effusions or pneumothorax. Mediastinum: Mediastinal contours appear normal. Heart size is normal. Bones and chest wall: No suspicious bony lesions. Severe bilateral glenohumeral joint degenerative arthritis. Overlying soft tissues appear unremarkable. IMPRESSION: No acute cardiopulmonary abnormality is seen. Note made of severe bilateral glenohumeral joint degenerative arthritis. Dictated by: Obdulio Caballero M.D. on 05/18/2024 at 9:58 Approved by: Obdulio Caballero M.D. on 05/18/2024 at 9:58 CT scan - head: Radiologist Impression: [address] [address] [address] Scan Report Signed Patient: May Andres MR#: [id number] : 1940 Acct:[id number] Age/Sex: 83 / F Date of Service: 05/18/24 Loc: ED Accession Number: [id number] Procedure: CT head/brain wo con Ordering Provider: Tylor Dwyer MD PROCEDURE: CT HEAD/BRAIN WO CON INDICATIONS: Altered mental status TECHNIQUE: Noncontrast 4.5 mm thick angled axial sections acquired from the foramen magnum to the vertex, with coronal and sagittal reformats. For radiation dose reduction, the following was used: automated exposure control, adjustment of mA and/or kV according to patient size. COMPARISON: [facility], CT, CT HEAD/BRAIN WO CHEPE, 07/31/2022, 19:29. FINDINGS: Image quality: Diagnostic. CSF spaces: Basal cisterns are patent. No extra-axial fluid collections. The ventricles are symmetric in size and shape. Brain: No intracranial bleeds or masses. There is cerebral volume loss for age, with resultant ventricular and sulcal prominence. There are periventricular and deep white matter chronic small vessel ischemic changes. 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 Old left cerebellar hemisphere lacunar infarction. There is intracranial internal carotid artery atherosclerosis. Skull and face: Calvarium and visualized facial bones appear intact, without suspicious lesions. Sinuses: Visualized sinuses and mastoids are clear. IMPRESSION: 1. No acute intracranial pathology. 2. Age-related volume loss, small vessel ischemic change, old lacunar infarctions. Dictated by: Obdulio Caballero M.D. on 05/18/2024 at 10:43 Approved by: Obdulio Caballero M.D. on 05/18/2024 at 10:45 [facility] Narrative Medical decision making narrative: Patient brought in by ambulance for generalized weakness. Blood sugar 127. [facility] patient has had generalized weakness for the past 4 days. She has had these symptoms before with UTIs. Patient has history of dementia. [id number] is with the state agency. Patient at this time awake alert oriented self and date of only. She denies any pain. No headache back pain chest pain abdominal pain. Denies any problems urinating. No nausea or vomiting or diarrhea. Patient had 2 controlled falls by staff at the facility. No injury. This is due to weakness according to EMS. After history and exam CBC CMP urinalysis CT head chest x-ray respiratory panel [facility] Medical records reviewed: No recent visit for this complaint Differential considered: Includes but not limited to stroke dehydration UTI viral syndrome Lab Test results independently reviewed as above. Pertinent findings: Urinalysis positive nitrate positive bacteria WBC 8.8 hemoglobin 13.1 sodium 138 potassium 4.9 BUN 22 creatinine 0.79 GFR greater than 60 glucose 106 lactate 1.2, prolactin 15.2 Independently reviewed EKG none indicated this time Imaging studies independently reviewed: Chest x-ray CT head, chest x-ray no acute finding, CT head no acute finding Consultations: None indicated at this time Treatments: Keflex Re-evaluations: Updated patient results. Patient has not definitely new symptoms. Patient tolerated Keflex. Discussion: Appropriate for discharge home exam is reassuring. Return precautions reviewed. custodial contacted and updated results and will be taking patient back. Diagnosis: Acute UTI Discharge Plan Departure Patient Disposition: Home Clinical Impression: Acute urinary tract infection Instructions: DI for Urinary Tract Infection (UTI) Activity Restrictions/Additional Instructions: You are being treated for urinary tract infection. Antibiotics have been started here. Prescription provided. See family doctor this week for re- evaluation. Continue home medications. Return if worse if any questions or concerns Prescriptions: New cephalexin 500 mg capsule 500 mg PO BID Qty: 6 0RF No Action acetaminophen [Tylenol Extra Strength] 500 MG tablet 1,000 mg PO BID Qty: 0 digoxin [Lanoxin] 250 MCG tablet 0.25 mg PO QDAY Qty: 0 diltiazem HCl [Cardizem LA] 240 MG tablet extended release 24 hr 240 mg PO QDAY Qty: 0 docusate sodium [Colace] 100 MG capsule 100 mg PO QDAY Qty: 0 aspirin 81 MG tablet,delayed release (DR/EC) 81 mg PO BID Qty: 60 0RF rosuvastatin 20 mg tablet 20 mg PO DAILY Referrals: Nat Bowles MD [Physician] - Stand Alone Forms: Patient Portal/API/Survey
[2024-05-18 09:30] VITALS: BP 123/59; PULSE 81; RESP 29; O2SAT 94
[2024-05-18 09:33] LABS: Add Manual Diff / Slide Review NO; Basophils Absolute Auto 0 /uL (0-100); Basophils Percent Auto 0.5 % (0-2); Eosinophils Absolute Auto 200 /uL (0-450); Eosinophils Percent Auto 1.8 % (2-4); Hematocrit 39.3 % (36-46); Hemoglobin 13.1 g/dL (12.0-16.0); Lymphocytes Absolute Auto 2300 /uL (1100-4500); Lymphocytes Percent Auto 26.5 % (25-40); Mean Corpuscular HGB Conc 33.2 % (30-36); Mean Corpuscular Hemoglobin 29.6 PG (26-34); Mean Corpuscular Volume 89.1 fL (80-100); Monocytes Absolute Auto 800 /uL (0-900); Monocytes Percent Auto 9.3 % (3-14); Neutrophils Absolute Auto 5400 /uL (1500-7000); Neutrophils Percent Auto 61.9 % (50-75); Platelet Count 169 X10^3/uL (150-400); Red Blood Cell Count 4.41 X10^6/uL (4.0-5.2); Red Cell Distribution Width 14.7 % (11.6-14.8); White Blood Cell Count 8.8 X10^3/uL (4.5-11.0)
[2024-05-18 09:35] LABS: INR 1.1 (0.9-1.3); Prothrombin Time 12.6 SECONDS (9.4-12.5)
[2024-05-18 09:38] LABS: PTT Partial Thromboplastin Tim 31 SECONDS (25.1-36.5)
[2024-05-18 09:39] LABS: Alanine Aminotransferase 16 IU/L (<35); Albumin 4.1 g/dL (3.5-5.0); Albumin Globulin Ratio 1.2 (1.0-2.8); Alkaline Phosphatase 42 U/L (38-126); Aspartate Aminotransferase 36 IU/L (14-36); BUN Creatinine Ratio 27.8 (6-22); Blood Urea Nitrogen 22 mg/dL (7-17); Calcium 8.9 mg/dL (8.4-10.2); Carbon Dioxide 27 mmol/L (22-32); Chloride 106 mmol/L (98-107); Estimated Glomerular Filt Rate > 60 mL/min (>60); Globulin 3.4 g/dL (1.7-4.1); Glucose 106 mg/dL (80-110); Potassium 4.9 mmol/L (3.4-5.1); Sodium 138 mmol/L (137-145); Total Protein 7.5 g/dL (6.3-8.2)
[2024-05-18 09:40] LABS: Lactate (Lactic Acid) 1.2 mmol/L (0.7-2.1)
[2024-05-18 09:44] VITALS: BP 123/59; PULSE 7; RESP 16; TEMP 36.6; O2SAT 93; BMI 27.8
[2024-05-18 09:51] LABS: Appearance Urine UA SL CLOUDY; Bilirubin Urine UA NEGATIVE (NEGATIVE); Color Urine UA YELLOW; Glucose Urine UA NEGATIVE (Negative); Ketones Urine UA NEGATIVE (NEGATIVE); Leukocyte Esterase Urine UA NEGATIVE (NEGATIVE); Nitrite Urine UA POSITIVE (Negative); Occult Blood Urine UA NEGATIVE (Negative); Protein Urine UA NEGATIVE (Negative); Specific Gravity Urine UA >=1.030 (1.000-1.035)
[2024-05-18 09:53] LABS: Urine Volume 10mL (spun); pH Urine UA 5.5 (4.5-8.0)
[2024-05-18 09:56] LABS: Bacteria Urine Many (>30); Culture Indicated Urine Specimen Cultured; RBC Urine None Seen (0-5/HPF); Squamous Epithelial Cell Urine 0-1 /HPF (0-5/HPF); WBC Urine 1-5/HPF (0-5/HPF)
[2024-05-18 10:09] LABS: HEMOLYSIS 204 (0-50); Prolactin 15.2 ng/mL (3.0-18.6)
[2024-05-18 10:15] LABS: Thyroid Stimulating Hormone 0.963 uIU/mL (0.47-4.68)
[2024-05-18] MEDS: cephALEXin 250 MG CAPSULE 500 MG PO (10:31)
[2024-05-18 10:37] LABS: Adenovirus Not Detected (Not Detect); B. parapertussis Not Detected (Not Detecte); Bordetella pertussis Not Detected (Not Detect); Chlamydophila pneumoniae Not Detected (Not Detect); Coronavirus 229E Not Detected (Not Detect); Coronavirus HKU1 Not Detected (Not Detect); Coronavirus NL 63 Not Detected (Not Detect); Coronavirus OC43 Not Detected (Not Detect); Human Metapneumovirus Not Detected (Not Detect); Human Rhinovirus/Enterovirus Not Detected (Not Detect); Influenza A Not Detected (Not Detect); Influenza B Not Detected (Not Detect); Mycoplasma pneumoniae Not Detected (Not Detect); Parainfluenza Virus 1 Not Detected (Not Detect); Parainfluenza Virus 2 Not Detected (Not Detect); Parainfluenza Virus 3 Not Detected (Not Detect); Parainfluenza Virus 4 Not Detected (Not Detect); Respiratory Syncytial Virus Not Detected (Not Detect); SARS- CoV-2 Not Detected (Not Detecte)
[2024-05-18 11:19] VITALS: BP 109/55; PULSE 70; RESP 16; O2SAT 94
== END 2024-05-18 11:25 | disposition home or self-care (01) ==
PROVIDERS: Emergency Provider Emergency Medicine; PCP Internal Medicine
DX: N39.0 Urinary tract infection, site not specified (principal); R41.82 Altered mental status, unspecified; R05.9 Cough, unspecified; F03.90 Unspecified dementia, unspecified severity, without behavioral disturbance, psychotic disturbance, mood disturbance, and anxiety
CPT/HCPCS: 36415; 70450; 71045; 80053; 81001; 82962; 83605; 84146; 84443; 85025; 85610; 85730; 87077; 87086; 87186; 87633; 99284

== ENCOUNTER → 2024-05-23 15:35 | Outpatient (ROUT) | payer MEDICARE, MEDICAID, SELFPAY ==
[2024-05-23 15:54] LABS: Appearance Urine UA SL CLOUDY; Bilirubin Urine UA NEGATIVE (NEGATIVE); Color Urine UA YELLOW; Glucose Urine UA NEGATIVE (Negative); Ketones Urine UA NEGATIVE (NEGATIVE); Leukocyte Esterase Urine UA TRACE (NEGATIVE); Nitrite Urine UA POSITIVE (Negative); Occult Blood Urine UA NEGATIVE (Negative); Protein Urine UA NEGATIVE (Negative)
[2024-05-23 15:57] LABS: pH Urine UA 6.5 (4.5-8.0)
[2024-05-23 16:04] LABS: Bacteria Urine Many (>30); Culture Indicated Urine Specimen Cultured; RBC Urine 0-1/HPF (0-5/HPF); Squamous Epithelial Cell Urine 0-1 /HPF (0-5/HPF); Urine Volume 10mL (spun); WBC Urine 5-10/HPF (0-5/HPF)
== END ==
PROVIDERS: PCP Internal Medicine; Visit Provider Registered Nurse
DX: Z13.89 Encounter for screening for other disorder (principal)
CPT/HCPCS: 81001; 87077; 87086; 87186